=== PATIENT | female | born 1955 | race Caucasian/White ===

== ENCOUNTER 2016-07-28 10:52 | Outpatient (RCR) | payer MEDICARE, OTHER ==
[~2016-07-28] VITALS: Ht 172.7 cm; Wt 77.1 kg
[2016-07-28] VITALS (8 sets, daily range): BP systolic 144–157; BP diastolic 77–87
[~2016-07-28 10:52] MED LIST: ADAL10SY; ADAL40PE INJ; ALPR.25T PO; ALPR0.25 PO; ALPR0.254 PO; ARIP10TA10 PO; ARMO150T3 PO; ARMO250T3 PO; ARPZ10T PO; BUDE3CAP5 PO; CEPH500C PO; CNC1KV IJ; CNC1KV SC; COLE625T9 PO; CYCL10TA9 PO; DIPH1TAB25 PO; ESCI20TA2 PO; ESCI20TA45 PO; FLC100T1 PO; LACT1CAP45 PO; LIRA0.6P SQ; LISI20TA2 PO; LOPE2CAP PO; LOPE2TAB34 PO; LORA-404 PO; METF-380 PO; METR500T PO; MODA200T PO; MSL400TEC PO; MTF500T PO; NFNEB10T PO; OMEP20CA12 PO; OMEP20CA6 PO; ONDA8TAB13 PO; ONDA8TAB9 PO; PNT40TEC PO; PROM12.59 PO; RIFA550T PO; SCR1T PO; SENN-20 PO; SITA1TAB6 PO; SUCR1TAB36 PO; TRAM50TA2 PO; VITAMIN B12 LIQUID PO; ZLP10T PO; ZOLP10TA5 PO
--- OUTSIDE RECORDS SUMMARY | 2016-07-28 10:55 | XMS REPORT | Continuity of Care Document ---
Author Author [facility] Organization [facility] Address Unknown Phone Unavailable Care Team Providers Care Regional Clinical Director Name Role Phone Elham Thomas PCP [phone] Source Comments Some departments are not documenting in the electronic medical record. If you do not see the information that you expected, contact Release of Information in the Health Information Management department at [phone] for further assistance in locating additional records.[facility] Active Allergies and Adverse Reactions No Known Allergies Current Medications Prescription Sig. Disp. Refills Start End Date Status Date escitalopram oxalate Take 40 mg by mouth at Active (LEXAPRO) 20 mg tablet bedtime daily. LORazepam (ATIVAN) 0.5 mg Take 1 mg by mouth at Active tablet bedtime daily. INFLIXIMAB (REMICADE IV) Administer 100 mg through Active vein as directed. Every other monthShe has had 2 treatments traMADol (ULTRAM) 50 mg Take 50-100 mg by mouth Active tablet every 4-6 hours as needed for Pain. loperamide(+) (IMODIUM Take 1 Tab by mouth twice 90 Tab 1 02/03/20 Active A-D) 2 mg tab daily. 16 acetaminophen (TYLENOL) Take 650 mg by mouth Active 325 mg tablet every 4 hours as needed for Pain. omeprazole DR(+) Take 40 mg by mouth Active (PRILOSEC) 40 mg capsule daily. Active Problems Problem Noted Date Status post small bowel resection 02/02/2016 Overview: s/p ex lap, eLOA, pouchoscopy, enteroscopy, excision of J pouch, SBR, end ileostomy, omental pedicle creation on 01/22/16 Twitching 02/02/2016 Overview: Neurology consulted and EEG completed. No epileptiform or lateralizing signs seen Lactic acidosis 01/22/2016 Traumatic hematuria 01/22/2016 Hypotension 01/22/2016 Acute blood loss anemia 01/22/2016 Crohn's colitis (HCC) 01/21/2016 Crohn's disease of both small and large intestine with intestinal 11/14/2015 obstruction (HCC) Most Recent Encounters Date Type Specialty Providers Description 06/14/2016 Telephone Gastroenterology Lillian Adorno MD Results 06/14/2016 Orders Only Gastroenterology Lillian Adorno MD 06/10/2016 Telephone Gastroenterology Lillian Adorno MD Results Social History Tobacco Use Types Packs/Day Years Used Date Former Smoker Cigarettes Smokeless Tobacco: Never Used Alcohol Use Drinks/Week oz/Week Comments No 0 Standard 0.0 drinks or equivalent Last Filed Vital Signs Vital Sign Reading Time Taken Blood Pressure 134/65 03/10/2016 1:57 PM CDT Pulse 70 03/10/2016 1:57 PM CDT Temperature 36.9 C (98.4 F) 02/24/2016 11:03 AM CDT Respiratory Rate 15 02/24/2016 11:03 AM CDT Height 1.689 m (5' 6.5") 03/10/2016 1:57 PM CDT Weight 66.225 kg (146 lb) 03/10/2016 1:57 PM CDT Body Mass Index 23.21 03/10/2016 1:57 PM CDT Oxygen Saturation 98% 03/10/2016 1:57 PM CDT Plan of Care Health Maintenance Due Date Last Done Comments Hepatitis C Screening 1953 Physical (Comprehensive) 1960 Exam Pertussis Vaccine 1964 Tetanus Vaccine 1970 Cervical Cancer Screening 1974 Breast Cancer Screening 1993 Colorectal Cancer 2003 Screening Shingles Vaccine 2013 Influenza Vaccine 06/17/2016 Results from Last 3 Months COMPREHENSIVE METABOLIC PANEL (06/02/2016) Component Value Range Sodium 142 135-145 Potassium 3.9 3.6-5.0 Chloride 110 (A) 98-107 CO2 23 21-32 Blood Urea Nitrogen 13 7-18 Creatinine 0.84 0.60-1.30 Glucose 116 (A) 70-105 Calcium 9.3 8.5-10.1 Total Protein 7.6 6.4-8.2 Total Bilirubin 0.5 0.1-1.0 Albumin 3.9 3.2-4.5 Alk Phosphatase 97 40-136 AST (SGOT) 60 (A) 5-34 ALT (SGPT) 84 (A) 0-55 Anion Gap 9 5-14 Specimen Blood CBC AND DIFF (06/02/2016) Component Value Range White Blood Cells 4.6 4.3-11.0 RBC 4.97 4.35-5.85 Hemoglobin 13.1 11.5-16.0 Hematocrit 41 35-52 MCV 82 80-99 MCH 26 25-34 MCHC 32 32-36 Platelet Count 215 130-400 MPV 10.5 (A) 7.4-10.4 RDW 15.3 (A) 10.0-14.5 Neutrophils 55 42-75 Absolute Neutrophil Count 2.6 1.8-7.8 Lymphocytes 31 12-44 Absolute Lymph Count 1.4 1.0-4.0 Monocytes 10 0-12 Absolute Monocyte Count 0.5 0.0-1.0 Eosinophil 3 0-10 Absolute Eosinophil Count 0.2 0.0-0.3 Basophils 1 0-10 Absolute Basophil Count 0.0 0.0-0.1 Specimen Blood
[2016-07-28] MEDS ORDERED: NS IV SCH ×2 (11:15)
[2016-07-28] MEDS ORDERED: INFLIXIMAB IV SCH ×2 (11:15)
[2016-07-28] MEDS: ACETAMINOPHEN 500 MG TAB (TYLENOL) PO PRN (11:25)
[2016-07-28] MEDS: diphenhydrAMINE 50 MG/ML INJ (BENADRYL) IVP PRN (11:25)
[2016-07-28 11:35] LABS: MEAN PLATELET VOLUME 10.5 FL (7.4-10.4); RED BLOOD COUNT 4.66 10^6/uL (4.35-5.85); RED CELL DISTRIBUTION WIDTH 13.2 % (10.0-14.5)
[2016-07-28] MEDS ORDERED: methylPREDNISolone 40 MG/ML (Solu-MEDROL) VIAL IV SCH (11:45)
[2016-07-28 12:11] LABS: ALANINE AMINOTRANSFERASE 34 U/L (0-55); ALBUMIN 3.7 G/DL (3.2-4.5); ANION GAP 11 MMOL/L (5-14); ASPARTATE AMINO TRANSFERASE 31 U/L (5-34); BILIRUBIN,TOTAL 0.3 MG/DL (0.1-1.0); BLOOD UREA NITROGEN 17 MG/DL (7-18); BUN/CREATININE RATIO 18; CALCIUM 9.2 MG/DL (8.5-10.1); CARBON DIOXIDE 18 MMOL/L (21-32); CHLORIDE 107 MMOL/L (98-107); CREATININE SERUM 0.92 MG/DL (0.60-1.30); GFR ESTIMATED > 60; GLUCOSE 97 MG/DL (70-105); POTASSIUM 3.6 MMOL/L (3.6-5.0); SODIUM 136 MMOL/L (135-145)
[2016-11-17] MEDS ORDERED: CLON1PAT TD (11:40)
[2016-11-17] MEDS ORDERED: DILT300C49 PO (11:40)
[2016-11-17] MEDS ORDERED: HYDR-3923 PO (11:40)
== END 2016-10-26 | disposition home or self-care (01) ==
LOC: SDC 10:52
PROVIDERS: ATTEND Nurse Practitioner Family
DX: K50.118 Crohn's disease of large intestine with other complication (principal)
CPT/HCPCS: 36415; 80053; 85027; 96365; 96366; 96374; 96375

== ENCOUNTER 2017-01-12 09:06 | Outpatient (RCR) | payer MEDICARE, OTHER ==
[2016-11-17] VITALS (7 sets, daily range): BP systolic 141–151; BP diastolic 71–81
--- OUTSIDE RECORDS SUMMARY | 2016-11-17 10:38 | XMS REPORT | Continuity of Care Document ---
Author Author [facility] Organization [facility] Address Unknown Phone Unavailable Care Team Providers Care Desk Pens Assembler Name Role Phone Elham Thomas PCP [phone] Source Comments Some departments are not documenting in the electronic medical record. If you do not see the information that you expected, contact Release of Information in the Health Information Management department at [phone] for further assistance in locating additional records.[facility] Active Allergies and Adverse Reactions No Known [...] Recent Encounters Date Type Specialty Providers Description 09/23/2016 Telephone Gastroenterology Lillian Adorno MD Other Social History Tobacco Use Types Packs/Day Years [...] Vaccine 06/17/2016 Results from Last 3 Months Not on file
[2016-11-17 11:06] LABS: MEAN PLATELET VOLUME 9.9 FL (7.4-10.4); RED BLOOD COUNT 4.9 10^6/uL (4.35-5.85); RED CELL DISTRIBUTION WIDTH 13.4 % (10.0-14.5); WHITE BLOOD COUNT 7.3 10^3/uL (4.3-11.0)
[2016-11-17] MEDS: methylPREDNISolone 40 MG/ML (Solu-MEDROL) VIAL IV SCH (11:11)
[2016-11-17] MEDS: ACETAMINOPHEN 500 MG TAB (TYLENOL) PO PRN (11:11)
[2016-11-17] MEDS: diphenhydrAMINE 50 MG/ML INJ (BENADRYL) IVP PRN (11:11)
[2016-11-17 11:24] LABS: ALBUMIN 4.1 G/DL (3.2-4.5); BILIRUBIN,TOTAL 0.5 MG/DL (0.1-1.0); CALCIUM 9.5 MG/DL (8.5-10.1); CREATININE SERUM 1.04 MG/DL (0.60-1.30); TOTAL PROTEIN 7.5 G/DL (6.4-8.2)
[2016-11-17] MEDS: NS IV SCH ×2 (11:31)
[2016-11-17] MEDS: INFLIXIMAB IV SCH ×2 (11:31)
[~2017-01-12] VITALS: Ht 172.7 cm; Wt 87.5 kg
[~2017-01-12 09:06] MED LIST changes: +CLON1PAT TD; +DILT300C49 PO; +HYDR-3923 PO
[2017-01-12] MEDS ORDERED: NS IV 1000 ML 1,000 ML ONE (09:23)
[2017-01-12] MEDS ORDERED: BANANA IV ONE ×5 (09:30)
[2017-01-12 09:31] LABS: MEAN PLATELET VOLUME 10.3 FL (7.4-10.4); RED BLOOD COUNT 5.63 10^6/uL (4.35-5.85); RED CELL DISTRIBUTION WIDTH 14.2 % (10.0-14.5); WHITE BLOOD COUNT 7.6 10^3/uL (4.3-11.0)
[2017-01-12] MEDS ORDERED: NS IV 1000 ML 1,000 ML IV ONE (09:45)
[2017-01-12 09:54] LABS: ALBUMIN 4.4 G/DL (3.2-4.5); BILIRUBIN,TOTAL 0.4 MG/DL (0.1-1.0); CALCIUM 10.3 MG/DL (8.5-10.1); CREATININE SERUM 1.94 MG/DL (0.60-1.30); POTASSIUM 5.2 MMOL/L (3.6-5.0); TOTAL PROTEIN 8.5 G/DL (6.4-8.2)
[2017-01-12 11:30] VITALS: BP 115/77
[2017-01-12] MEDS: diphenhydrAMINE 50 MG/ML INJ (BENADRYL) IVP PRN (12:35)
[2017-01-12] MEDS: NS IV SCH ×2 (12:35)
[2017-01-12] MEDS: INFLIXIMAB IV SCH ×2 (12:35)
[2017-01-12] MEDS: methylPREDNISolone 40 MG/ML (Solu-MEDROL) VIAL IV SCH (12:36)
[2017-01-12] MEDS: ACETAMINOPHEN 500 MG TAB (TYLENOL) PO PRN (12:36)
[2017-01-12 13:00] VITALS: BP 120/62
[2017-01-12 13:30] VITALS: BP 122/67
[2017-01-12 14:00] VITALS: BP 126/64
[2017-01-12 14:30] VITALS: BP 124/68
[2017-01-12 15:09] VITALS: BP 120/62
== END 2017-02-15 | disposition home or self-care (01) ==
LOC: SDC 09:06
PROVIDERS: ATTEND Nurse Practitioner Family
DX: K50.118 Crohn's disease of large intestine with other complication (principal)
CPT/HCPCS: 36415; 80053; 85027; 94664; 96365; 96366; 96374; 96375

== ENCOUNTER 2017-03-09 08:50 | Outpatient (RCR) | payer MEDICARE, OTHER ==
[~2017-03-09] VITALS: Ht 172.7 cm; Wt 83.9 kg
[2017-03-09] MEDS ORDERED: ACETAMINOPHEN 500 MG TAB (TYLENOL) PO SCH (09:15)
[2017-03-09] MEDS ORDERED: diphenhydrAMINE 50 MG/ML INJ (BENADRYL) IV SCH (09:15)
[2017-03-09] MEDS ORDERED: methylPREDNISolone 40 MG/ML (Solu-MEDROL) VIAL IV SCH (09:15)
[2017-03-09 09:25] VITALS: BP_SYST 131; BP_SYST 132; BP_DIAS 85; BP_DIAS 94
[2017-03-09 09:25] LABS: RED BLOOD COUNT 4.69 10^6/uL (4.35-5.85); RED CELL DISTRIBUTION WIDTH 13.9 % (10.0-14.5); WHITE BLOOD COUNT 6.2 10^3/uL (4.3-11.0)
[2017-03-09] MEDS ORDERED: NS IV SCH ×2 (09:30)
[2017-03-09] MEDS ORDERED: BANANA BAG IV ONE ×5 (09:30)
[2017-03-09] MEDS ORDERED: INFLIXIMAB IV SCH ×2 (09:30)
[2017-03-09 09:51] LABS: BILIRUBIN,TOTAL 0.4 MG/DL (0.1-1.0); CALCIUM 9.8 MG/DL (8.5-10.1); CREATININE SERUM 1.14 MG/DL (0.60-1.30); POTASSIUM 3.8 MMOL/L (3.6-5.0); TOTAL PROTEIN 7.3 G/DL (6.4-8.2)
== END 2017-03-25 13:00 | disposition home or self-care (01) ==
LOC: SDC 08:50
PROVIDERS: ATTEND Nurse Practitioner Family
DX: K50.118 Crohn's disease of large intestine with other complication (principal); E86.0 Dehydration
CPT/HCPCS: 36415; 80053; 85027; 96365; 96366; 96367; 99211

== ENCOUNTER 2017-05-04 10:08 | Outpatient (RCR) | payer MEDICARE, OTHER ==
[~2017-05-04] VITALS: Ht 172.7 cm; Wt 86.6 kg
[2017-05-04] MEDS ORDERED: INFLIXIMAB IV SCH ×2 (10:27)
[2017-05-04] MEDS ORDERED: NS IV SCH ×2 (10:27)
[2017-05-04] MEDS ORDERED: ACETAMINOPHEN 500 MG TAB (TYLENOL) PO PRN (10:30)
[2017-05-04] MEDS ORDERED: diphenhydrAMINE 50 MG/ML INJ (BENADRYL) IV PRN (10:45)
[2017-05-04] MEDS ORDERED: EPINEPHrine INJECTION 1 MG/ML AMP SC PRN (10:45)
[2017-05-04] MEDS ORDERED: methylPREDNISolone 40 MG/ML (Solu-MEDROL) VIAL IV PRN (10:45)
[2017-05-04] MEDS: CATHETER FLUSH 10 ML SYR IV PRN ×3 (10:45→15:30)
[2017-05-04 11:20] LABS: MEAN PLATELET VOLUME 10.5 FL (7.4-10.4); RED BLOOD COUNT 4.69 10^6/uL (4.35-5.85); RED CELL DISTRIBUTION WIDTH 13.5 % (10.0-14.5); WHITE BLOOD COUNT 6.4 10^3/uL (4.3-11.0)
[2017-05-04 12:07] LABS: ALBUMIN 3.9 GM/DL (3.2-4.5); BILIRUBIN,TOTAL 0.5 MG/DL (0.1-1.0); CALCIUM 9.5 MG/DL (8.5-10.1); CREATININE SERUM 2.43 MG/DL (0.60-1.30); POTASSIUM 5.3 MMOL/L (3.6-5.0); TOTAL PROTEIN 7.7 GM/DL (6.4-8.2)
[2017-05-04 15:30] VITALS: BP 119/70
[2017-05-11] MEDS ORDERED: LORA0.5T PO (11:29)
[2017-05-11] MEDS ORDERED: ARIP5TAB20 PO (11:29)
[2017-05-11] MEDS ORDERED: DILT30TA PO (11:29)
[2017-05-11] MEDS ORDERED: HYDR-3924 PO (11:29)
[2017-05-12] MEDS ORDERED: HYDR-3816 PO (13:24)
== END 2017-06-30 09:06 | disposition home or self-care (01) ==
LOC: SDC 10:08
PROVIDERS: ATTEND Nurse Practitioner Family
DX: K50.90 Crohn's disease, unspecified, without complications (principal)
CPT/HCPCS: 36415; 80053; 85027; 96365; 96366; 96374; 96375

== ENCOUNTER 2017-05-04 10:18 | Outpatient (RCR) | payer MEDICARE, OTHER ==
[2017-03-28 12:20] VITALS: BP 134/74
[2017-03-28 12:54] LABS: ALBUMIN 4.4 G/DL (3.2-4.5); BILIRUBIN,TOTAL 0.5 MG/DL (0.1-1.0); CALCIUM 10.3 MG/DL (8.5-10.1); CREATININE SERUM 1.48 MG/DL (0.60-1.30); MAGNESIUM 2.4 MG/DL (1.8-2.4); TOTAL PROTEIN 8.5 G/DL (6.4-8.2)
[2017-03-28 12:55] LABS: POTASSIUM 5.4 MMOL/L (3.6-5.0)
[2017-03-28 14:35] VITALS: BP 134/74
[2017-04-11 11:22] VITALS: BP 107/68
[2017-04-11 12:36] LABS: ALBUMIN 4.2 GM/DL (3.2-4.5); BILIRUBIN,TOTAL 0.5 MG/DL (0.1-1.0); CALCIUM 9.3 MG/DL (8.5-10.1); CREATININE SERUM 2.45 MG/DL (0.60-1.30); ICTERUS 0.4 (-100-1.9); MAGNESIUM 1.9 MG/DL (1.8-2.4); POTASSIUM 4.4 MMOL/L (3.6-5.0)
[2017-04-11] MEDS: NS IV 1000 ML 1,000 ML IV PRN ×2 (15:35→15:37)
[2017-04-20 11:28] LABS: ALBUMIN 4.1 GM/DL (3.2-4.5); BILIRUBIN,TOTAL 0.4 MG/DL (0.1-1.0); CREATININE SERUM 1.75 MG/DL (0.60-1.30); MAGNESIUM 2.1 MG/DL (1.8-2.4); POTASSIUM 5.1 MMOL/L (3.6-5.0); TOTAL PROTEIN 7.8 GM/DL (6.4-8.2)
[2017-04-20 11:41] VITALS: BP 131/71
[2017-04-20] MEDS: NS IV 1000 ML 1,000 ML IV PRN (11:42)
[2017-04-20] MEDS: THIAMINE INJECTION 100 MG, FOLIC ACID INJECTION 1 MG, VITAMIN MULTI INJECTION 10 ML, MA... IV PRN ×5 (13:13)
[2017-04-20 14:21] VITALS: BP 131/71
[~2017-05-04] VITALS: Ht 172.7 cm; Wt 86.6 kg
[2017-05-04 10:15] VITALS: BP 119/70
[~2017-05-04 10:18] MED LIST changes: +NS IV 1000 ML 1,000 ML IV SCH; +NS IV 1000 ML 1,000 ML ONE; +THIAMINE INJECTION 100 MG, FOLIC ACID INJECTION 1 MG, VITAMIN MULTI INJECTION 10 ML, MA... IV NR; +THIAMINE INJECTION 100 MG, FOLIC ACID INJECTION 1 MG, VITAMIN MULTI INJECTION 10 ML, MA... IV PRN
[2017-05-04] MEDS: NS IV 1000 ML 1,000 ML IV PRN (11:24)
[2017-05-04] MEDS: THIAMINE INJECTION 100 MG, FOLIC ACID INJECTION 1 MG, VITAMIN MULTI INJECTION 10 ML, MA... IV PRN ×5 (11:26)
[2017-05-11] MEDS ORDERED: HYDR-3924 PO (11:29)
[2017-05-11] MEDS ORDERED: DILT30TA PO (11:29)
[2017-05-11] MEDS ORDERED: LORA0.5T PO (11:29)
[2017-05-11] MEDS ORDERED: ARIP5TAB20 PO (11:29)
[2017-05-12] MEDS ORDERED: HYDR-3816 PO (13:24)
== END 2017-06-26 | disposition home or self-care (01) ==
LOC: SDC 10:18
PROVIDERS: ATTEND Nurse Practitioner Family
DX: E86.0 Dehydration (principal)
CPT/HCPCS: 36415; 80053; 83735; 96360; 96361; 96365; 96366; 96367

== ENCOUNTER 2017-05-09 11:12 | Outpatient (CLI) | payer MEDICARE, OTHER ==
[~2017-05-09] VITALS: Ht 172.7 cm; Wt 86.6 kg
[~2017-05-09 11:12] MED LIST changes: -NS IV 1000 ML 1,000 ML IV SCH; -NS IV 1000 ML 1,000 ML ONE; -THIAMINE INJECTION 100 MG, FOLIC ACID INJECTION 1 MG, VITAMIN MULTI INJECTION 10 ML, MA... IV NR; -THIAMINE INJECTION 100 MG, FOLIC ACID INJECTION 1 MG, VITAMIN MULTI INJECTION 10 ML, MA... IV PRN
[2017-05-09] MEDS: NS IV 1000 ML 1,000 ML IV SCH ×2 (11:42→12:35)
[2017-05-09 12:35] VITALS: BP 113/63
[2017-05-11] MEDS ORDERED: ARIP5TAB20 PO ×2 (11:29)
[2017-05-11] MEDS ORDERED: HYDR-3924 PO ×2 (11:29)
[2017-05-11] MEDS ORDERED: LORA0.5T PO ×2 (11:29)
[2017-05-11] MEDS ORDERED: DILT30TA PO ×2 (11:29)
[2017-05-12] MEDS ORDERED: HYDR-3816 PO ×2 (13:24)
== END 2017-05-09 13:45 | disposition home or self-care (01) ==
LOC: SDC 11:12
PROVIDERS: ATTEND Family Medicine
DX: E86.0 Dehydration (principal); E87.1 Hypo-osmolality and hyponatremia; E87.5 Hyperkalemia
CPT/HCPCS: 96360; 96361

== ENCOUNTER 2017-05-11 05:41 | Outpatient (CLI) | payer MEDICARE, OTHER ==
[~2017-05-11] VITALS: Ht 172.7 cm; Wt 87.1 kg
[2017-05-11] MEDS ORDERED: LORA0.5T PO (11:29)
[2017-05-11] MEDS ORDERED: ARIP5TAB20 PO (11:29)
[2017-05-11] MEDS ORDERED: DILT30TA PO (11:29)
[2017-05-11] MEDS ORDERED: HYDR-3924 PO (11:29)
[2017-05-12] MEDS ORDERED: HYDR-3816 PO (13:24)
== END 2017-05-11 11:33 ==
LOC: PREOP 05:41
PROVIDERS: ATTEND Surgery
DX: Z01.818 Encounter for other preprocedural examination (principal); K50.90 Crohn's disease, unspecified, without complications

== ENCOUNTER 2017-05-12 09:58 | Day surgery (SDC) | payer MEDICARE, OTHER ==
[~2017-05-12] VITALS: Ht 172.7 cm; Wt 87.1 kg
[~2017-05-12 09:58] MED LIST changes: +ARIP5TAB20 PO; +DILT30TA PO; +HYDR-3924 PO; +LORA0.5T PO
[2017-05-12] MEDS ORDERED: NS (IVPB) 50 ML ONE (10:01)
[2017-05-12] MEDS ORDERED: ceFAZolin 1,000 MG (ANCEF) VIAL ONE (10:01)
[2017-05-12] MEDS ORDERED: ceFAZolin 1 GM/NS 50 ML IVPB IV ONE ×2 (10:15)
[2017-05-12] MEDS ORDERED: HEParin (CENTRAL IV FLUSH) 500 UNIT/5 ML SYR ONE (10:35)
[2017-05-12] MEDS ORDERED: LIDOCAINE/EPI 1%-1:200,000 (XYLOCAINE) 30 ML VIAL ONE (10:43)
[2017-05-12] MEDS: LACTATED RINGERS 1,000 ML IV PRN ×2 (11:00→13:21)
[2017-05-12] MEDS ORDERED: MIDAZOLAM 2 MG/2 ML (VERSED) VIAL ONE (11:28)
[2017-05-12] MEDS ORDERED: PROPOFOL INJECTION 50 ML IV ONE (11:30)
--- NOTE | 2017-05-12 11:47 | Progress Note-Pre Operative ---
Pre-Operative Progress Note H&P Reviewed The H&P was reviewed, patient examined and no changes noted. Date Seen by Provider: May 12, 2017 Time Seen by Provider: 11:45 Date H&P Reviewed: May 12, 2017 Time H&P Reviewed: 11:45 Pre-Operative Diagnosis: severe crohn's disease SUNNY STACY MD May 12, 2017 11:47 am
[2017-05-12] MEDS ORDERED: morphine INJ 10 MG/ML 1ML (SYR OR VIAL) IVP PRN ×2 (12:00→13:30)
[2017-05-12] MEDS ORDERED: ONDANSETRON 4 MG/2 ML (SDV) Z0FRAN IVP PRN (12:00)
[2017-05-12] MEDS ORDERED: HYDROcodone/APAP 5 MG/325 MG (LORTAB) TAB PO ONE (12:00)
[2017-05-12] MEDS ORDERED: ACETAMINOPHEN 325 MG TABLET/CAPLET (TYLENOL) PO PRN (12:00)
[2017-05-12 12:21] VITALS: BP 125/77
[2017-05-12] MEDS ORDERED: LACTATED RINGERS 1,000 ML IV ONE ×2 (12:54→13:07)
--- NOTE | 2017-05-12 13:22 | Progress Note-Post Operative ---
Post-Operative Progess Note Surgeon (s)/Deliverer Outside (s) Surgeon SUNNY STACY MD Deliverer Outside: johan jason CASING RUNNING MACHINE TENDER Pre-Operative Diagnosis severe crohn's disease Post-Operative Diagnosis same Procedure & Operative Findings Date of Procedure 05/12/17 Procedure Performed/Findings left subclavian groshong implantable catheter placement under fluoroscopy. Anesthesia Type MAC with local Estimated Blood Loss Estimated blood loss (mL): minimal Specimens/Packing Specimens Removed none SUNNY STACY MD May 12, 2017 1:22 pm
[2017-05-12] MEDS ORDERED: HYDR-3816 PO (13:24)
--- NOTE | 2017-05-12 13:25 | Discharge Inst-Surgical ---
D/C Lap Instructions-TAWANNA New, Converted, or Re-Newed RX: RX on Chart Follow Up PRN Activity as tolerated Regular Diet Symptoms to Report: Fever over 101 degree F, Nausea/Vomiting Infection Signs and Symptoms to report: Increased redness, Foul odor of wound, Increased drainage Bathing instructions: May shower Operative Area Clean/Dry; Keep incision clean/dry If any problems/questions: Contact your physician or go to Emergency Room SUNNY STACY MD May 12, 2017 1:25 pm
[2017-05-12 13:45] VITALS: BP 117/71
--- NOTE | 2017-05-12 13:49 | Diagnostic Imaging Report ---
Portable upright radiograph of the chest. INDICATION: Port placement. FINDINGS: There is a left subclavian port inserted with the tip at the SVC level. The lungs are clear. The heart size is normal. No effusion or pneumothorax Mediastinum and brandan appear unremarkable. IMPRESSION: Unremarkable exam. Dictated by: Dictated on workstation # [id number]
[2017-05-12 14:15] VITALS: BP 121/73
[2017-05-12 14:30] VITALS: BP 121/73
--- NOTE | 2017-05-12 15:41 | Diagnostic Imaging Report ---
EXAMINATION: Intraoperative view of the chest. INDICATION: Port placement by Dr. Spicer. FLUOROSCOPY TIME: Fluoro time provided to the OR was 20 seconds. IMPRESSION: Provided image demonstrates port catheter tip at the SVC level. Dictated by: Dictated on workstation # [id number]
--- NOTE | 2017-05-13 10:36 | OPERATIVE REPORT ---
PROCEDURE PHYSICIAN: SUNNY SPICER DATE OF PROCEDURE: 05/12/2017 ATTENDING PRIMARY CARE PHYSICIAN: Dr. Leesa Thomas. PREOPERATIVE DIAGNOSES: 1. Severe Crohn's disease. 2. Dehydration. POSTOPERATIVE DIAGNOSES: 1. Severe Crohn's disease. 2. Dehydration. PROCEDURE: Placement of left subclavian Groshong implantable catheter under fluoroscopy. SURGEON: Dr. Spicer. STEWARD/STEWARDESS [employer]ILRO[employer] DINING CAR: Nicolas Myrick APRN. ANESTHESIA: Monitored anesthesia care with local. ESTIMATED BLOOD LOSS: Minimal. FINDINGS: Catheter tip at the superior vena cava - right atrial junction. DISPOSITION: The patient tolerated procedure well. Ms. Suni Hernandez is a 62-year-old female in need of a Groshong implantable catheter. Approximately 5 years ago she had issues with gastrointestinal inflammation as well as dehydration. 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 Since the ileostomy, she has had issues with dehydration requiring IV fluids on an intermittent basis. She also requires Remicade infusions about every 2 months. She has had several PICC lines before in the past; however, would become nonfunctional. PROCEDURE: The patient was brought to the operating room, laid supine on the table. After adequate IV pain and sedative medications and monitored anesthesia care, the chest and neck were prepped and draped in standard surgical fashion. 0.5% Marcaine with epinephrine was then used to anesthetize the overlying skin in the left subclavian region. The left subclavian vein was then cannulated withdrawing of venous blood. A guidewire was then inserted using fluoroscopy. Cannulating needle removed and a skin incision made using a 15 blade. The dilator and sheath were then introduced over the guidewire and the dilator and wire were then removed and catheter placed until the tip was at the superior vena caval - right atrial junction under fluoroscopy. The sheath was then removed. The inner wire within the catheter was then removed. The catheter cut down to size and the port placed onto the catheter. We then proceeded with creation of the subcutaneous chest reservoir. The skin incision was extended laterally using a 15 blade. The subcutaneous tissue was then opened until the anterior pectoral fascia was identified and a plane between the fat and the fascia were then created using electrocautery as well as blunt dissection. The port was then placed in reservoir and sutured to the anterior fascia using interrupted 3-0 Vicryl sutures. The port was accessed withdrawing of venous blood and heparinized saline pushed in without any resistance. The subcutaneous tissue was then reapproximated using 3-0 Vicryl interrupted sutures. Skin was closed using 4-0 Monocryl running subcuticular suture. The wound was then cleaned and covered with Dermabond. The patient tolerated the procedure well. We will start IV and oral pain medication as well as a clear liquid diet. Once she is tolerating clears, has good pain control with oral pain medications and ambulating well, we will discharge her home. We will also get confirmation of placement of the catheter with an x-ray. Job ID: [id number] Dictated Date: 05/12/2017 13:20:58 Global Account Director Date: 05/13/2017 10:27:46 / dexter
== END 2017-05-12 14:30 | disposition home or self-care (01) ==
LOC: SDC 09:58
PROVIDERS: ATTEND Surgery
DX: K50.90 Crohn's disease, unspecified, without complications (principal); E86.0 Dehydration; I10 Essential (primary) hypertension; K21.9 Gastro-esophageal reflux disease without esophagitis; F41.9 Anxiety disorder, unspecified; F31.9 Bipolar disorder, unspecified; M79.7 Fibromyalgia; Z79.899 Other long term (current) drug therapy; Z93.2 Ileostomy status
CPT/HCPCS: 71010; 87081

== ENCOUNTER 2017-05-17 12:30 | Outpatient (CLI) | payer MEDICARE, OTHER ==
[~2017-05-17] VITALS: Ht 172.7 cm; Wt 87.1 kg
[~2017-05-17 12:30] MED LIST changes: +HYDR-3816 PO
[2017-05-17] MEDS ORDERED: NS IV 1000 ML 2,000 ML ONE (13:00)
[2017-05-17] MEDS ORDERED: NS IV 1000 ML 2,000 ML IV ONE (13:15)
[2017-05-17 14:49] LABS: ALBUMIN 3.7 GM/DL (3.2-4.5); BILIRUBIN,TOTAL 0.3 MG/DL (0.1-1.0); CALCIUM 9.5 MG/DL (8.5-10.1); CREATININE SERUM 1.67 MG/DL (0.60-1.30); MAGNESIUM 1.5 MG/DL (1.8-2.4); POTASSIUM 4.2 MMOL/L (3.6-5.0); TOTAL PROTEIN 6.8 GM/DL (6.4-8.2)
[2017-05-17 16:29] VITALS: BP 110/57
== END 2017-06-30 09:05 | disposition home or self-care (01) ==
LOC: SDC 12:30 → EDSTATUS 12:34 → SDC 06-30 09:05
PROVIDERS: ATTEND Family Medicine
DX: E86.0 Dehydration (principal)
CPT/HCPCS: 36415; 80053; 83735; 96360; 96361

== ENCOUNTER → 2017-05-25 | Outpatient (CLI) | payer MEDICARE, OTHER ==
[~2017-05-25] VITALS: Ht 172.7 cm; Wt 87.1 kg
[~2017-05-25] MED LIST changes: +MAGNESIUM 1 GM/100 ML IVPB 200 ML IV ONE; +NS IV 1000 ML 1,000 ML IV SCH; +NS IV 1000 ML 1,000 ML ONE
[2017-05-25 13:00] VITALS: BP 115/66
[2017-05-25] MEDS: MAGNESIUM 1 GM/D5W 100 ML IVPB IV SCH ×2 (13:00→13:50)
== END ==
LOC: SDC 12:39
PROVIDERS: ATTEND Family Medicine
DX: E86.0 Dehydration (principal); E83.42 Hypomagnesemia
CPT/HCPCS: 96361; 96365

== ENCOUNTER 2017-06-29 10:15 | Outpatient (RCR) | payer MEDICARE, OTHER ==
[2017-06-15 11:15] VITALS: BP 137/69
[2017-06-15 11:33] LABS: BILIRUBIN,URINE NEGATIVE (NEGATIVE); KETONES,URINE NEGATIVE (NEGATIVE); LEUKOCYTE ESTERASE ,URINE 1+ (NEGATIVE); NITRITE,URINE NEGATIVE (NEGATIVE); PH,URINE 6 (5-9); PROTEIN,URINE 1+ (NEGATIVE); UROBILINOGEN,URINE NORMAL (NORMAL)
[2017-06-15 11:47] LABS: BASOPHILS # (AUTO) 0.1 10^3/uL (0.0-0.1); BASOPHILS % (AUTO) 1 % (0-10); EOSINOPHILS # (AUTO) 0.2 10^3/uL (0.0-0.3); EOSINOPHILS % (AUTO) 3 % (0-10); LYMPHOCYTES # (AUTO) 1.4 X 10^3 (1.0-4.0); LYMPHOCYTES % (AUTO) 20 % (12-44); MEAN CORPUSCULAR HEMOGLOBIN 29 PG (25-34); MEAN CORPUSCULAR HGB CONC 32 G/DL (32-36); MEAN CORPUSCULAR VOLUME 89 FL (80-99); MEAN PLATELET VOLUME 10.2 FL (7.4-10.4); MONOCYTES # (AUTO) 0.6 X 10^3 (0.0-1.0); MONOCYTES % (AUTO) 9 % (0-12); NEUTROPHILS # (AUTO) 4.9 X 10^3 (1.8-7.8); NEUTROPHILS % (AUTO) 68 % (42-75); PLATELET COUNT 255 10^3/uL (130-400); RED BLOOD COUNT 4.17 10^6/uL (4.35-5.85); RED CELL DISTRIBUTION WIDTH 14.1 % (10.0-14.5); WHITE BLOOD COUNT 7.2 10^3/uL (4.3-11.0)
[2017-06-15 11:49] LABS: SQUAMOUS EPITHELIAL CELL,UR RARE /HPF
[2017-06-15 12:13] LABS: CALCIUM 9.8 MG/DL (8.5-10.1); CREATININE SERUM 1.22 MG/DL (0.60-1.30); PHOSPHORUS 3.8 MG/DL (2.3-4.7); POTASSIUM 4.2 MMOL/L (3.6-5.0); TOTAL PROTEIN 7.3 GM/DL (6.4-8.2)
[~2017-06-29] VITALS: Ht 172.7 cm; Wt 87.1 kg
[~2017-06-29 10:15] MED LIST changes: -NS IV 1000 ML 1,000 ML IV PRN
[2017-06-29] MEDS ORDERED: diphenhydrAMINE 50 MG/ML INJ (BENADRYL) IV PRN (10:32)
[2017-06-29] MEDS ORDERED: methylPREDNISolone 40 MG/ML (Solu-MEDROL) VIAL IV PRN (10:32)
[2017-06-29] MEDS ORDERED: CATHETER FLUSH 10 ML SYR IV PRN (10:32)
[2017-06-29] MEDS ORDERED: EPINEPHrine INJECTION 1 MG/ML AMP SC PRN (10:32)
[2017-06-29] MEDS ORDERED: INFLIXIMAB IV SCH ×2 (10:32)
[2017-06-29] MEDS ORDERED: ACETAMINOPHEN 500 MG TAB (TYLENOL) PO PRN (10:32)
[2017-06-29] MEDS ORDERED: NS IV SCH ×2 (10:32)
[2017-06-29] MEDS ORDERED: NS IV 1000 ML 1,000 ML IV PRN (10:45)
[2017-06-29 12:21] VITALS: BP 112/78
== END 2017-06-30 09:07 | disposition home or self-care (01) ==
LOC: SDC 10:15
PROVIDERS: ATTEND Family Medicine
DX: E86.0 Dehydration (principal); K91.1 Postgastric surgery syndromes
CPT/HCPCS: 36415; 36591; 80069; 81000; 84155; 85025; 87088; 96360; 96361

== ENCOUNTER → 2017-06-29 | Outpatient (CLI) | payer MEDICARE, OTHER ==
[~2017-06-29] MED LIST changes: -MAGNESIUM 1 GM/100 ML IVPB 200 ML IV ONE; +NS IV 1000 ML 1,000 ML IV PRN; -NS IV 1000 ML 1,000 ML IV SCH; -NS IV 1000 ML 1,000 ML ONE; +NS IV 1000 ML 2,000 ML ONE
[2017-06-29 10:38] LABS: MEAN PLATELET VOLUME 10.2 FL (7.4-10.4); RED BLOOD COUNT 4.27 10^6/uL (4.35-5.85); RED CELL DISTRIBUTION WIDTH 13.9 % (10.0-14.5); WHITE BLOOD COUNT 5.6 10^3/uL (4.3-11.0)
[2017-06-29 10:56] LABS: ALBUMIN 3.9 GM/DL (3.2-4.5); BILIRUBIN,TOTAL 0.7 MG/DL (0.1-1.0); CALCIUM 9.5 MG/DL (8.5-10.1); CREATININE SERUM 1.18 MG/DL (0.60-1.30); POTASSIUM 3.9 MMOL/L (3.6-5.0); TOTAL PROTEIN 7.5 GM/DL (6.4-8.2)
[2017-06-29 12:21] VITALS: BP 112/78
[2017-06-29 12:23] VITALS: BP 112/78
== END ==
LOC: SDC 10:07
PROVIDERS: ATTEND Nurse Practitioner Family
DX: K50.118 Crohn's disease of large intestine with other complication (principal)
CPT/HCPCS: 36415; 36591; 80053; 85027; 96365; 96366; 96375

== ENCOUNTER → 2017-07-06 | Outpatient (CLI) | payer MEDICARE, OTHER ==
[~2017-07-06] VITALS: Ht 172.7 cm; Wt 87.1 kg
[~2017-07-06] MED LIST changes: +MAGNESIUM 1 GM/100 ML IVPB 200 ML IV ONE; +MAGNESIUM 1 GM/D5W 100 ML IVPB IV SCH; +NS IV 1000 ML 1,000 ML IV ONE; +NS IV 1000 ML 1,000 ML ONE; -NS IV 1000 ML 2,000 ML ONE
[2017-07-06 11:50] VITALS: BP 121/72
[2017-07-06 14:07] VITALS: BP 121/72
== END ==
LOC: SDC 11:35
PROVIDERS: ATTEND Family Medicine
DX: E83.42 Hypomagnesemia (principal); E86.0 Dehydration; K91.2 Postsurgical malabsorption, not elsewhere classified
CPT/HCPCS: 96365; 96368

== ENCOUNTER → 2017-07-06 | Outpatient (CLI) | payer MEDICARE, OTHER ==
[~2017-07-06] MED LIST changes: -MAGNESIUM 1 GM/100 ML IVPB 200 ML IV ONE; -MAGNESIUM 1 GM/D5W 100 ML IVPB IV SCH; -NS IV 1000 ML 1,000 ML IV ONE; -NS IV 1000 ML 1,000 ML ONE
--- NOTE | 2017-07-06 14:27 | Diagnostic Imaging Report ---
Renal ultrasound. INDICATION: Chronic renal disease. FINDINGS: The right kidney is 8.9 cm and the left kidney is 9.9 cm in length. There is cortical atrophy. No hydronephrosis. There is a 2 cm cyst with simple appearance in the superior aspect of the left kidney. The bladder is nearly empty with no definite abnormality. IMPRESSION: Renal parenchymal atrophy. No hydronephrosis. Dictated by: Dictated on workstation # [id number]
== END ==
LOC: RAD 10:50
PROVIDERS: ATTEND Internal Medicine Nephrology
DX: N18.3 Chronic kidney disease, stage 3 (moderate) (principal)
CPT/HCPCS: 76770

== ENCOUNTER → 2017-08-31 | Outpatient (CLI) | payer MEDICARE, OTHER ==
[~2017-08-31] MED LIST changes: +ACETAMINOPHEN 500 MG TAB (TYLENOL) PO SCH; +INFLIXIMAB DYYB IV SCH; +NORMAL SALINE IV SCH; +diphenhydrAMINE 50 MG/ML INJ (BENADRYL) IV SCH; +methylPREDNISolone 40 MG/ML (Solu-MEDROL) VIAL IV SCH
== END ==
LOC: SDC 11:02
PROVIDERS: ATTEND Family Medicine
DX: K50.118 Crohn's disease of large intestine with other complication (principal)

== ENCOUNTER → 2017-09-01 | Outpatient (CLI) | payer MEDICARE, OTHER ==
[~2017-09-01] VITALS: Ht 172.7 cm; Wt 89.8 kg
[~2017-09-01] MED LIST changes: -ACETAMINOPHEN 500 MG TAB (TYLENOL) PO SCH; -INFLIXIMAB DYYB IV SCH; -NORMAL SALINE IV SCH; -diphenhydrAMINE 50 MG/ML INJ (BENADRYL) IV SCH; -methylPREDNISolone 40 MG/ML (Solu-MEDROL) VIAL IV SCH
[2017-09-01 13:39] VITALS: BP 146/79
[2017-09-01 14:40] LABS: ALBUMIN 3.7 GM/DL (3.2-4.5); BILIRUBIN,TOTAL 0.4 MG/DL (0.1-1.0); CREATININE SERUM 1.21 MG/DL (0.60-1.30); POTASSIUM 3.6 MMOL/L (3.6-5.0); TOTAL PROTEIN 6.8 GM/DL (6.4-8.2)
[2017-09-01 17:02] LABS: MEAN PLATELET VOLUME 10.3 FL (7.4-10.4); RED BLOOD COUNT 4.24 10^6/uL (4.35-5.85); RED CELL DISTRIBUTION WIDTH 12.2 % (10.0-14.5); WHITE BLOOD COUNT 4.8 10^3/uL (4.3-11.0)
[2017-09-01 17:22] LABS: ALBUMIN 3.7 GM/DL (3.2-4.5); BILIRUBIN,TOTAL 0.5 MG/DL (0.1-1.0); CREATININE SERUM 1.48 MG/DL (0.60-1.30); POTASSIUM 4.2 MMOL/L (3.6-5.0)
== END ==
LOC: SDC 14:02
PROVIDERS: ATTEND Family Medicine
DX: K50.118 Crohn's disease of large intestine with other complication (principal)
CPT/HCPCS: 36415; 80053; 85027

== ENCOUNTER → 2017-09-26 | Outpatient (CLI) | payer MEDICARE, OTHER ==
[~2017-09-26] VITALS: Ht 172.7 cm; Wt 89.8 kg
[2017-09-26 14:08] LABS: BILIRUBIN,URINE NEGATIVE (NEGATIVE); KETONES,URINE NEGATIVE (NEGATIVE); LEUKOCYTE ESTERASE ,URINE 1+ (NEGATIVE); NITRITE,URINE NEGATIVE (NEGATIVE); PH,URINE 5 (5-9); PROTEIN,URINE 2+ (NEGATIVE); UROBILINOGEN,URINE NORMAL (NORMAL)
[2017-09-26 14:18] LABS: SQUAMOUS EPITHELIAL CELL,UR RARE /HPF; WBC,URINE RARE /HPF
[2017-09-26 14:29] LABS: PROTEIN/CREATININE RATIO 0.09
[2017-09-26 14:41] VITALS: BP 135/88
[2017-09-26 14:44] LABS: BASOPHILS % (AUTO) 0 % (0-10); EOSINOPHILS # (AUTO) 0.2 10^3/uL (0.0-0.3); EOSINOPHILS % (AUTO) 3 % (0-10); LYMPHOCYTES # (AUTO) 1.1 X 10^3 (1.0-4.0); LYMPHOCYTES % (AUTO) 22 % (12-44); MEAN CORPUSCULAR HEMOGLOBIN 28 PG (25-34); MEAN CORPUSCULAR HGB CONC 32 G/DL (32-36); MEAN CORPUSCULAR VOLUME 88 FL (80-99); MEAN PLATELET VOLUME 10.5 FL (7.4-10.4); MONOCYTES # (AUTO) 0.4 X 10^3 (0.0-1.0); MONOCYTES % (AUTO) 7 % (0-12); NEUTROPHILS # (AUTO) 3.4 X 10^3 (1.8-7.8); NEUTROPHILS % (AUTO) 67 % (42-75); PLATELET COUNT 253 10^3/uL (130-400); RED BLOOD COUNT 4.53 10^6/uL (4.35-5.85); RED CELL DISTRIBUTION WIDTH 12.9 % (10.0-14.5)
[2017-09-26 15:05] LABS: CALCIUM 9.6 MG/DL (8.5-10.1); CREATININE SERUM 1.07 MG/DL (0.60-1.30); MAGNESIUM 1.6 MG/DL (1.8-2.4); PHOSPHORUS 2.7 MG/DL (2.3-4.7); POTASSIUM 4.2 MMOL/L (3.6-5.0); URIC ACID 8.4 MG/DL (2.6-7.2)
[2017-09-26 15:10] LABS: BASOPHILS % (MANUAL) 3 %; EOSINOPHILS % (MANUAL) 6 %; LYMPHOCYTES % (MANUAL) 14 %; NEUTROPHILS % (MANUAL) 65 %
[2017-09-27 09:35] LABS: CALCIUM PARA THYROID HORMONE 9.8 mg/dL (8.5-10.5)
== END ==
LOC: SDC 13:12
PROVIDERS: ATTEND Internal Medicine Nephrology
DX: I12.9 Hypertensive chronic kidney disease with stage 1 through stage 4 chronic kidney disease, or unspecified chronic kidney disease (principal); N18.3 Chronic kidney disease, stage 3 (moderate); D64.9 Anemia, unspecified; E87.2 Acidosis
CPT/HCPCS: 36415; 80069; 81000; 82306; 82570; 82607; 82728; 82746; 83540; 83735; 83970; 84156; 84550; 85007; 85027

== ENCOUNTER → 2017-10-28 | Outpatient (CLI) | payer MEDICARE, OTHER ==
[2017-10-28] VITALS (9 sets, daily range): BP systolic 109–129; BP diastolic 51–85
[~2017-10-28] VITALS: Ht 172.7 cm; Wt 89.8 kg
[~2017-10-28] MED LIST changes: +ACETAMINOPHEN 500 MG TAB (TYLENOL) PO PRN; +CATHETER FLUSH 10 ML SYR IV PRN; +EPINEPHrine INJECTION 1 MG/ML AMP SC PRN; +INFLIXIMAB IV SCH; +NS IV SCH; +diphenhydrAMINE 50 MG/ML INJ (BENADRYL) IV PRN; +methylPREDNISolone 40 MG/ML (Solu-MEDROL) VIAL IV PRN
[2017-10-28 12:16] LABS: HEMOGLOBIN 13.1 G/DL (11.5-16.0); MEAN PLATELET VOLUME 10.2 FL (7.4-10.4); RED BLOOD COUNT 4.57 10^6/uL (4.35-5.85); RED CELL DISTRIBUTION WIDTH 14.3 % (10.0-14.5); WHITE BLOOD COUNT 4.1 10^3/uL (4.3-11.0)
[2017-10-28 12:38] LABS: ALBUMIN 3.8 GM/DL (3.2-4.5); BILIRUBIN,TOTAL 0.4 MG/DL (0.1-1.0); CALCIUM 9.5 MG/DL (8.5-10.1); CREATININE SERUM 1.37 MG/DL (0.60-1.30); POTASSIUM 4.2 MMOL/L (3.6-5.0); TOTAL PROTEIN 7.3 GM/DL (6.4-8.2)
[2017-10-28] MEDS: INFLIXIMAB DYYB IV SCH ×2 (12:42→12:43)
[2017-10-28] MEDS: NORMAL SALINE IV SCH ×2 (12:42→12:43)
[2017-10-28] MEDS: NS IV 1000 ML 2,000 ML IV PRN ×2 (15:10→16:25)
== END ==
LOC: SDC 11:14
PROVIDERS: ATTEND Family Medicine
DX: E86.0 Dehydration (principal); K31.89 Other diseases of stomach and duodenum; K50.118 Crohn's disease of large intestine with other complication
CPT/HCPCS: 36415; 36591; 80053; 85027; 96361; 96365; 96375

== ENCOUNTER 2017-12-01 11:35 | Outpatient (RCR) | payer MEDICARE, OTHER ==
[2017-10-03] MEDS: ACETAMINOPHEN 500 MG TAB (TYLENOL) PO SCH (14:15)
[2017-10-03] MEDS: diphenhydrAMINE 50 MG/ML INJ (BENADRYL) IV SCH (14:17)
[2017-10-03 15:00] VITALS: BP 150/90
[2017-10-05] MEDS: ACETAMINOPHEN 500 MG TAB (TYLENOL) PO SCH (13:50)
[2017-10-05] MEDS: diphenhydrAMINE 50 MG/ML INJ (BENADRYL) IV SCH (14:00)
[2017-10-05] MEDS: IRON SUCROSE 250 MG/NS 100 ML IVPB IV SCH ×2 (14:20)
[2017-10-05 14:52] VITALS: BP 146/88
[2017-10-07] MEDS: ACETAMINOPHEN 500 MG TAB (TYLENOL) PO SCH (12:57)
[2017-10-07] MEDS: diphenhydrAMINE 50 MG/ML INJ (BENADRYL) IV SCH (12:57)
[2017-10-07] MEDS: IRON SUCROSE 250 MG/NS 100 ML IVPB IV SCH ×2 (13:00)
[2017-10-07 13:02] VITALS: BP 133/73
[2017-10-07 13:33] VITALS: BP 133/73
[2017-10-11] MEDS: diphenhydrAMINE 50 MG/ML INJ (BENADRYL) IV SCH (13:37)
[2017-10-11] MEDS: ACETAMINOPHEN 500 MG TAB (TYLENOL) PO SCH (13:40)
[2017-10-11] MEDS: IRON SUCROSE 250 MG/NS 100 ML IVPB IV SCH ×2 (13:58)
[2017-10-11 14:32] VITALS: BP 143/77
[2017-10-18] MEDS: ACETAMINOPHEN 500 MG TAB (TYLENOL) PO SCH (12:20)
[2017-10-18] MEDS: diphenhydrAMINE 50 MG/ML INJ (BENADRYL) IV SCH (12:20)
[2017-10-18] MEDS: IRON SUCROSE 250 MG/NS 100 ML IVPB IV SCH ×2 (12:45)
[2017-10-18 13:23] VITALS: BP 156/81
[~2017-12-01] VITALS: Ht 172.7 cm; Wt 89.8 kg
[~2017-12-01 11:35] MED LIST changes: -ACETAMINOPHEN 500 MG TAB (TYLENOL) PO PRN; -CATHETER FLUSH 10 ML SYR IV PRN; -EPINEPHrine INJECTION 1 MG/ML AMP SC PRN; +HEParin (CENTRAL IV FLUSH) 500 UNIT/5 ML SYR ONE; +HYDR-34 PO; -HYDR-3816 PO; -INFLIXIMAB IV SCH; +IRON SUCROSE 200 MG/NS 100 ML (IVPB) IV ONE; -NS IV SCH; -diphenhydrAMINE 50 MG/ML INJ (BENADRYL) IV PRN; -methylPREDNISolone 40 MG/ML (Solu-MEDROL) VIAL IV PRN
[2017-12-01 11:50] VITALS: BP 130/67
[2018-01-02] MEDS ORDERED: NS IV 1000 ML 2,000 ML ONE (12:08)
== END 2018-01-01 | disposition home or self-care (01) ==
LOC: SDC 11:35
PROVIDERS: ATTEND Family Medicine
DX: D50.9 Iron deficiency anemia, unspecified (principal); N18.9 Chronic kidney disease, unspecified
CPT/HCPCS: 96365; 96375; 96523

== ENCOUNTER → 2017-12-26 | Outpatient (CLI) | payer MEDICARE, OTHER ==
[~2017-12-26] VITALS: Ht 172.7 cm; Wt 89.8 kg
[~2017-12-26] MED LIST changes: +ACETAMINOPHEN 500 MG TAB (TYLENOL) ONE; -HEParin (CENTRAL IV FLUSH) 500 UNIT/5 ML SYR ONE; -IRON SUCROSE 200 MG/NS 100 ML (IVPB) IV ONE; +NS IV 1000 ML 1,000 ML IV SCH; +NS IV 1000 ML 2,000 ML ONE
[2017-12-26 13:17] VITALS: BP 136/74
[2017-12-26 15:05] VITALS: BP 136/74
== END ==
LOC: SDC 12:32
PROVIDERS: ATTEND Family Medicine
DX: K50.90 Crohn's disease, unspecified, without complications (principal)
CPT/HCPCS: 36591

== ENCOUNTER → 2018-02-09 | Outpatient (CLI) | payer MEDICARE, OTHER ==
[~2018-02-09] VITALS: Ht 172.7 cm; Wt 89.1 kg
[~2018-02-09] MED LIST changes: +ACETAMINOPHEN 500 MG TAB (TYLENOL) PO ONE; +INFLIXIMAB DYYB IV ONE; +INFLIXIMAB DYYB IV SCH; +NORMAL SALINE IV ONE; +NORMAL SALINE IV SCH; +NS IV 1000 ML 0 ML ONE; -NS IV 1000 ML 1,000 ML IV SCH; -NS IV 1000 ML 2,000 ML ONE; +diphenhydrAMINE 50 MG/ML INJ (BENADRYL) IM NR; +diphenhydrAMINE 50 MG/ML INJ (BENADRYL) IVP ONE; +diphenhydrAMINE 50 MG/ML INJ (BENADRYL) ONE; +methylPREDNISolone 40 MG/ML (Solu-MEDROL) VIAL IV ONE; +methylPREDNISolone 40 MG/ML (Solu-MEDROL) VIAL ONE
[2018-02-09 12:48] LABS: HEMOGLOBIN 12.4 G/DL (11.5-16.0); MEAN PLATELET VOLUME 9.9 FL (7.4-10.4); RED BLOOD COUNT 4.19 10^6/uL (4.35-5.85); RED CELL DISTRIBUTION WIDTH 12.5 % (10.0-14.5); WHITE BLOOD COUNT 5.5 10^3/uL (4.3-11.0)
[2018-02-09 12:54] VITALS: BP 152/83
[2018-02-09 13:11] LABS: BILIRUBIN,TOTAL 0.4 MG/DL (0.1-1.0); CALCIUM 9.8 MG/DL (8.5-10.1); CREATININE SERUM 1.03 MG/DL (0.60-1.30); POTASSIUM 3.6 MMOL/L (3.6-5.0); TOTAL PROTEIN 7.5 GM/DL (6.4-8.2)
[2018-02-09 15:30] VITALS: BP 152/83
== END ==
LOC: SDC 12:03
PROVIDERS: ATTEND Family Medicine
DX: K50.118 Crohn's disease of large intestine with other complication (principal)
CPT/HCPCS: 36415; 36591; 80053; 85027; 96365; 96366

== ENCOUNTER → 2018-03-21 | Outpatient (CLI) | payer MEDICARE, OTHER ==
[~2018-03-21] VITALS: Ht 172.7 cm; Wt 89.1 kg
[~2018-03-21] MED LIST changes: -ACETAMINOPHEN 500 MG TAB (TYLENOL) ONE; -ACETAMINOPHEN 500 MG TAB (TYLENOL) PO ONE; -INFLIXIMAB DYYB IV ONE; -INFLIXIMAB DYYB IV SCH; -NORMAL SALINE IV ONE; -NORMAL SALINE IV SCH; -NS IV 1000 ML 0 ML ONE; -diphenhydrAMINE 50 MG/ML INJ (BENADRYL) IM NR; -diphenhydrAMINE 50 MG/ML INJ (BENADRYL) IVP ONE; -diphenhydrAMINE 50 MG/ML INJ (BENADRYL) ONE; -methylPREDNISolone 40 MG/ML (Solu-MEDROL) VIAL IV ONE; -methylPREDNISolone 40 MG/ML (Solu-MEDROL) VIAL ONE
[2018-03-21 09:37] LABS: BASOPHILS % (AUTO) 1 % (0-10); EOSINOPHILS # (AUTO) 0.1 10^3/uL (0.0-0.3); EOSINOPHILS % (AUTO) 2 % (0-10); HEMATOCRIT 38 % (35-52); HEMOGLOBIN 12.2 G/DL (11.5-16.0); LYMPHOCYTES % (AUTO) 19 % (12-44); MEAN CORPUSCULAR HEMOGLOBIN 29 PG (25-34); MEAN CORPUSCULAR HGB CONC 32 G/DL (32-36); MEAN CORPUSCULAR VOLUME 90 FL (80-99); MEAN PLATELET VOLUME 10.2 FL (7.4-10.4); MONOCYTES # (AUTO) 0.4 X 10^3 (0.0-1.0); MONOCYTES % (AUTO) 9 % (0-12); NEUTROPHILS # (AUTO) 3.5 X 10^3 (1.8-7.8); NEUTROPHILS % (AUTO) 70 % (42-75); PLATELET COUNT 206 10^3/uL (130-400); RED BLOOD COUNT 4.18 10^6/uL (4.35-5.85); RED CELL DISTRIBUTION WIDTH 12.5 % (10.0-14.5); WHITE BLOOD COUNT 5.1 10^3/uL (4.3-11.0)
[2018-03-21 10:01] LABS: ALBUMIN 3.9 GM/DL (3.2-4.5); CALCIUM 9.6 MG/DL (8.5-10.1); CREATININE SERUM 1.17 MG/DL (0.60-1.30); MAGNESIUM 1.5 MG/DL (1.8-2.4); POTASSIUM 3.3 MMOL/L (3.6-5.0); URIC ACID 7.2 MG/DL (2.6-7.2)
[2018-03-21 10:34] LABS: BILIRUBIN,URINE NEGATIVE (NEGATIVE); CLARITY,URINE CLEAR; COLOR,URINE YELLOW; GLUCOSE, URINE (UA) NEGATIVE (NEGATIVE); KETONES,URINE NEGATIVE (NEGATIVE); LEUKOCYTE ESTERASE ,URINE 1+ (NEGATIVE); NITRITE,URINE NEGATIVE (NEGATIVE); PH,URINE 5 (5-9); PROTEIN,URINE NEGATIVE (NEGATIVE); UROBILINOGEN,URINE NORMAL (NORMAL)
[2018-03-21 10:42] LABS: BACTERIA,URINE TRACE /HPF; SQUAMOUS EPITHELIAL CELL,UR 0-2 /HPF
[2018-03-21 10:50] LABS: URINE CREATININE FOR RATIO 51 MG/DL (30-125); URINE PROTEIN FOR RATIO ONLY < 6 MG/DL (6-12)
[2018-03-21 11:15] VITALS: BP 139/74
== END ==
LOC: SDC 10:09
PROVIDERS: ATTEND Internal Medicine Nephrology
DX: I12.9 Hypertensive chronic kidney disease with stage 1 through stage 4 chronic kidney disease, or unspecified chronic kidney disease (principal); N18.3 Chronic kidney disease, stage 3 (moderate); D50.9 Iron deficiency anemia, unspecified; E79.0 Hyperuricemia without signs of inflammatory arthritis and tophaceous disease
CPT/HCPCS: 36415; 36591; 80069; 81000; 82306; 82570; 82607; 82728; 82746; 83540; 83735; 83970; 84156; 84550; 85025; 87088

== ENCOUNTER 2018-03-23 12:47 | Outpatient (RCR) | payer MEDICARE, OTHER ==
[2017-12-29 13:09] LABS: HEMOGLOBIN 13.1 G/DL (11.5-16.0); MEAN PLATELET VOLUME 9.9 FL (7.4-10.4); RED BLOOD COUNT 4.44 10^6/uL (4.35-5.85); RED CELL DISTRIBUTION WIDTH 14.1 % (10.0-14.5); WHITE BLOOD COUNT 7.2 10^3/uL (4.3-11.0)
[2017-12-29] MEDS: CATHETER FLUSH 10 ML SYR IV PRN (13:16)
[2017-12-29 13:28] VITALS: BP 141/68
[2017-12-29 13:30] LABS: ALBUMIN 4.1 GM/DL (3.2-4.5); BILIRUBIN,TOTAL 0.4 MG/DL (0.1-1.0); CALCIUM 9.8 MG/DL (8.5-10.1); CREATININE SERUM 1.31 MG/DL (0.60-1.30); POTASSIUM 3.7 MMOL/L (3.6-5.0); TOTAL PROTEIN 7.4 GM/DL (6.4-8.2)
[2017-12-29 16:03] VITALS: BP 142/79
[2017-12-29 16:04] VITALS: BP 142/79
[2018-01-20 13:35] VITALS: BP 141/82
[2018-01-31] MEDS: CATHETER FLUSH 10 ML SYR IV PRN (11:35)
[2018-01-31 11:40] VITALS: BP 142/76
[2018-01-31 13:53] VITALS: BP 142/76
[2018-03-01 10:40] VITALS: BP 141/76
[2018-03-09 07:45] VITALS: BP 130/69
[2018-03-09] MEDS: CATHETER FLUSH 10 ML SYR IV PRN (08:05)
[2018-03-21] MEDS: NS IV 1000 ML 1,000 ML IV SCH ×2 (09:15→10:15)
[2018-03-21] MEDS: CATHETER FLUSH 10 ML SYR IV PRN (09:15)
[2018-03-21 11:13] VITALS: BP 139/74
[~2018-03-23] VITALS: Ht 172.7 cm; Wt 89.1 kg
[2018-03-23] VITALS (10 sets, daily range): BP systolic 138–152; BP diastolic 71–89
[~2018-03-23 12:47] MED LIST changes: +ACETAMINOPHEN 500 MG TAB (TYLENOL) ONE; +ACETAMINOPHEN 500 MG TAB (TYLENOL) PO ONE; +INFLIXIMAB DYYB IV ONE; +NORMAL SALINE IV ONE; +NS IV 1000 ML 1,000 ML IV SCH; +NS IV 1000 ML 1,000 ML ONE; +NS IV 1000 ML 2,000 ML IV ONE; +NS IV 1000 ML 2,000 ML ONE; +diphenhydrAMINE 50 MG/ML INJ (BENADRYL) IVP ONE; +diphenhydrAMINE 50 MG/ML INJ (BENADRYL) ONE; +methylPREDNISolone 40 MG/ML (Solu-MEDROL) VIAL IV ONE; +methylPREDNISolone 40 MG/ML (Solu-MEDROL) VIAL ONE
[2018-03-23] MEDS ORDERED: INFLIXIMAB DYYB IV SCH (12:59)
[2018-03-23] MEDS ORDERED: NORMAL SALINE IV SCH (12:59)
[2018-03-23] MEDS ORDERED: ACETAMINOPHEN 500 MG TAB (TYLENOL) ONE (13:02)
[2018-03-23] MEDS ORDERED: methylPREDNISolone 40 MG/ML (Solu-MEDROL) VIAL ONE (13:02)
[2018-03-23] MEDS ORDERED: diphenhydrAMINE 50 MG/ML INJ (BENADRYL) ONE (13:02)
[2018-03-23] MEDS ORDERED: INFLIXIMAB DYYB IV ONE (13:15)
[2018-03-23] MEDS ORDERED: ACETAMINOPHEN 500 MG TAB (TYLENOL) PO ONE (13:15)
[2018-03-23] MEDS ORDERED: NORMAL SALINE IV ONE (13:15)
[2018-03-23] MEDS ORDERED: methylPREDNISolone 40 MG/ML (Solu-MEDROL) VIAL IV ONE (13:15)
[2018-03-23] MEDS ORDERED: diphenhydrAMINE 50 MG/ML INJ (BENADRYL) IVP ONE (13:15)
[2018-03-23 13:21] LABS: HEMOGLOBIN 12.3 G/DL (11.5-16.0); MEAN PLATELET VOLUME 9.7 FL (7.4-10.4); RED BLOOD COUNT 4.19 10^6/uL (4.35-5.85); RED CELL DISTRIBUTION WIDTH 12.6 % (10.0-14.5); WHITE BLOOD COUNT 4.6 10^3/uL (4.3-11.0)
[2018-03-23 13:38] LABS: ALBUMIN 3.9 GM/DL (3.2-4.5); BILIRUBIN,TOTAL 0.5 MG/DL (0.1-1.0); CALCIUM 9.4 MG/DL (8.5-10.1); POTASSIUM 3.3 MMOL/L (3.6-5.0)
== END 2018-03-29 | disposition home or self-care (01) ==
LOC: SDC 12:47
PROVIDERS: ATTEND Family Medicine
DX: K50.90 Crohn's disease, unspecified, without complications (principal)
CPT/HCPCS: 36415; 36591; 80053; 80069; 81000; 82306; 82570; 82607; 82728; 82746; 83540; 83735; 83970; 84156; 84550; 85025; 85027; 87088; 96360; 96361; 96365

== ENCOUNTER 2018-06-15 12:47 | Outpatient (RCR) | payer MEDICARE, OTHER ==
[2018-04-06 09:55] VITALS: BP 126/75
[2018-04-06] MEDS: NS IV 1000 ML 1,000 ML IV SCH ×2 (10:30→11:25)
[2018-05-03] MEDS: methylPREDNISolone 40 MG/ML (Solu-MEDROL) VIAL IV SCH (13:35)
[2018-05-04 13:32] LABS: MEAN PLATELET VOLUME 9.9 FL (7.4-10.4); RED BLOOD COUNT 4.45 10^6/uL (4.35-5.85); WHITE BLOOD COUNT 5.1 10^3/uL (4.3-11.0)
[2018-05-04] MEDS: ACETAMINOPHEN 500 MG TAB (TYLENOL) PO SCH (13:35)
[2018-05-04] MEDS: diphenhydrAMINE 50 MG/ML INJ (BENADRYL) IV PRN (13:35)
[2018-05-04] MEDS: NS IV 1000 ML 2,000 ML IV PRN (13:35)
[2018-05-04 13:49] LABS: BILIRUBIN,TOTAL 0.4 MG/DL (0.1-1.0); CREATININE SERUM 1.12 MG/DL (0.60-1.30); POTASSIUM 3.8 MMOL/L (3.6-5.0); TOTAL PROTEIN 7.4 GM/DL (6.4-8.2)
[2018-05-04 13:58] VITALS: BP 142/78
[2018-05-04 16:15] VITALS: BP 142/78
[2018-05-23 13:12] VITALS: BP 155/85
[2018-05-23] MEDS: NS IV 1000 ML 2,000 ML IV PRN (13:35)
[~2018-06-15] VITALS: Ht 172.7 cm; Wt 89.1 kg
[~2018-06-15 12:47] MED LIST changes: -ACETAMINOPHEN 500 MG TAB (TYLENOL) PO ONE; -INFLIXIMAB DYYB IV ONE; +INFLIXIMAB DYYB IV SCH; -NORMAL SALINE IV ONE; +NORMAL SALINE IV SCH; -NS IV 1000 ML 1,000 ML IV SCH; -NS IV 1000 ML 2,000 ML IV ONE; -NS IV 1000 ML 2,000 ML ONE; -diphenhydrAMINE 50 MG/ML INJ (BENADRYL) IVP ONE; +methylPREDNISolone 125 MG (Solu-MEDROL) VIAL ONE; -methylPREDNISolone 40 MG/ML (Solu-MEDROL) VIAL IV ONE; -methylPREDNISolone 40 MG/ML (Solu-MEDROL) VIAL ONE
[2018-06-15] MEDS ORDERED: NORMAL SALINE IV SCH (13:00)
[2018-06-15] MEDS ORDERED: INFLIXIMAB DYYB IV SCH (13:00)
[2018-06-15] MEDS: ACETAMINOPHEN 500 MG TAB (TYLENOL) PO SCH (13:05)
[2018-06-15] MEDS: NS IV 1000 ML 2,000 ML IV PRN (13:25)
[2018-06-15] MEDS: diphenhydrAMINE 50 MG/ML INJ (BENADRYL) IV PRN (13:26)
[2018-06-15] MEDS: methylPREDNISolone 40 MG/ML (Solu-MEDROL) VIAL IV SCH (13:35)
[2018-06-15 13:51] LABS: HEMOGLOBIN 12.3 G/DL (11.5-16.0); MEAN PLATELET VOLUME 10.4 FL (7.4-10.4); RED BLOOD COUNT 4.08 10^6/uL (4.35-5.85); RED CELL DISTRIBUTION WIDTH 13.1 % (10.0-14.5); WHITE BLOOD COUNT 5.7 10^3/uL (4.3-11.0)
[2018-06-15 14:14] LABS: ALBUMIN 3.9 GM/DL (3.2-4.5); BILIRUBIN,TOTAL 0.4 MG/DL (0.1-1.0); CALCIUM 9.7 MG/DL (8.5-10.1); CREATININE SERUM 1.2 MG/DL (0.60-1.30); POTASSIUM 3.6 MMOL/L (3.6-5.0)
[2018-06-15 15:45] VITALS: BP 134/77
== END 2018-07-05 | disposition home or self-care (01) ==
LOC: SDC 12:47
PROVIDERS: ATTEND Family Medicine
DX: K50.90 Crohn's disease, unspecified, without complications (principal)
CPT/HCPCS: 36415; 36591; 80053; 85027; 96360; 96361; 96365; 96366; 96367; 96374; 96375

== ENCOUNTER 2018-07-14 10:22 | Outpatient (RCR) | payer MEDICARE, OTHER ==
[2018-07-10 10:50] VITALS: BP 143/92
[~2018-07-14] VITALS: Ht 172.7 cm; Wt 89.1 kg
[~2018-07-14 10:22] MED LIST changes: -ACETAMINOPHEN 500 MG TAB (TYLENOL) ONE; -INFLIXIMAB DYYB IV SCH; -NORMAL SALINE IV SCH; +NS IV 1000 ML 1,000 ML IV SCH; -NS IV 1000 ML 1,000 ML ONE; +NS IV 1000 ML 2,000 ML ONE; -diphenhydrAMINE 50 MG/ML INJ (BENADRYL) ONE; -methylPREDNISolone 125 MG (Solu-MEDROL) VIAL ONE
[2018-07-14] MEDS ORDERED: NS IV 1000 ML 2,000 ML ONE (10:23)
[2018-07-14 10:25] VITALS: BP 141/77
[2018-07-14] MEDS: NS IV 1000 ML 1,000 ML IV PRN ×2 (10:40→11:36)
== END 2018-07-16 | disposition home or self-care (01) ==
LOC: SDC 10:22
PROVIDERS: ATTEND Family Medicine
DX: K50.90 Crohn's disease, unspecified, without complications (principal)
CPT/HCPCS: 96360; 96361

== ENCOUNTER 2018-10-20 12:56 | Outpatient (RCR) | payer MEDICARE, OTHER ==
[2018-07-27 12:45] VITALS: BP 130/81
[2018-07-27 13:23] LABS: HEMOGLOBIN 12.3 G/DL (11.5-16.0); MEAN PLATELET VOLUME 9.9 FL (7.4-10.4); RED BLOOD COUNT 4.19 10^6/uL (4.35-5.85); RED CELL DISTRIBUTION WIDTH 12.9 % (10.0-14.5); WHITE BLOOD COUNT 5.3 10^3/uL (4.3-11.0)
[2018-07-27 13:45] LABS: BILIRUBIN,TOTAL 0.4 MG/DL (0.1-1.0); CALCIUM 9.8 MG/DL (8.5-10.1); CREATININE SERUM 1.29 MG/DL (0.60-1.30); POTASSIUM 3.5 MMOL/L (3.6-5.0); TOTAL PROTEIN 7.3 GM/DL (6.4-8.2)
[2018-07-27] MEDS: NS IV 1000 ML 1,000 ML IV SCH ×2 (13:46→14:45)
[2018-07-27] MEDS: INFLIXIMAB DYYB IV SCH (14:11)
[2018-07-27] MEDS: NORMAL SALINE IV SCH (14:11)
[2018-07-27 14:45] VITALS: BP 130/81
[2018-07-27 15:20] VITALS: BP 136/70
[2018-07-27 16:35] VITALS: BP 141/83
[2018-08-21] MEDS: NS IV 1000 ML 1,000 ML IV PRN (13:15)
[2018-08-21 13:20] VITALS: BP 154/83
[2018-09-08 12:15] VITALS: BP 145/71
[2018-09-08] MEDS: NS IV 1000 ML 1,000 ML IV PRN ×2 (12:37→13:34)
[2018-09-08] MEDS: ACETAMINOPHEN 500 MG TAB (TYLENOL) PO SCH (12:37)
[2018-09-08] MEDS: diphenhydrAMINE 50 MG/ML INJ (BENADRYL) IVP PRN (12:37)
[2018-09-08] MEDS: methylPREDNISolone 40 MG/ML (Solu-MEDROL) VIAL IV PRN (12:45)
[2018-09-08] MEDS: NORMAL SALINE IV SCH (12:59)
[2018-09-08] MEDS: INFLIXIMAB DYYB IV SCH (12:59)
[2018-09-08 14:36] LABS: BASOPHILS % (AUTO) 0 % (0-10); EOSINOPHILS # (AUTO) 0.1 10^3/uL (0.0-0.3); EOSINOPHILS % (AUTO) 1 % (0-10); HEMATOCRIT 40 % (35-52); HEMOGLOBIN 12.6 G/DL (11.5-16.0); LYMPHOCYTES # (AUTO) 1.1 X 10^3 (1.0-4.0); LYMPHOCYTES % (AUTO) 11 % (12-44); MEAN CORPUSCULAR HEMOGLOBIN 29 PG (25-34); MEAN CORPUSCULAR HGB CONC 32 G/DL (32-36); MEAN CORPUSCULAR VOLUME 90 FL (80-99); MEAN PLATELET VOLUME 10.7 FL (7.4-10.4); MONOCYTES # (AUTO) 0.6 X 10^3 (0.0-1.0); MONOCYTES % (AUTO) 6 % (0-12); NEUTROPHILS # (AUTO) 8.2 X 10^3 (1.8-7.8); NEUTROPHILS % (AUTO) 82 % (42-75); PLATELET COUNT 228 10^3/uL (130-400)
[2018-09-08 14:48] LABS: ALBUMIN 3.9 GM/DL (3.2-4.5); BILIRUBIN,TOTAL 0.4 MG/DL (0.1-1.0); CALCIUM 9.8 MG/DL (8.5-10.1); CREATININE SERUM 1.19 MG/DL (0.60-1.30); POTASSIUM 3.9 MMOL/L (3.6-5.0); TOTAL PROTEIN 7.1 GM/DL (6.4-8.2)
--- NOTE | 2018-09-08 15:10 | NUR ---
INFUSION COMPLETED. PORT FLUSHED WITH 20 ML OF NS FLUSH, NEEDLE DEACCESSED TIP INTACT. PT DISCHARGED AMBULATORY TO HOME.
[2018-10-02 11:20] VITALS: BP 133/79
[2018-10-02] MEDS: NS IV 1000 ML 1,000 ML IV PRN ×2 (11:40→12:41)
[2018-10-13 13:05] VITALS: BP 126/81
[2018-10-13] MEDS: NS IV 1000 ML 1,000 ML IV PRN ×2 (13:55→15:00)
[~2018-10-20] VITALS: Ht 172.7 cm; Wt 89.1 kg
[2018-10-20 12:56] VITALS: BP 141/86
[~2018-10-20 12:56] MED LIST changes: +ACETAMINOPHEN 500 MG TAB (TYLENOL) PO PRN; -NS IV 1000 ML 1,000 ML IV SCH; +diphenhydrAMINE 50 MG/ML INJ (BENADRYL) IVP ONE; +methylPREDNISolone 40 MG/ML (Solu-MEDROL) VIAL IV ONE; +methylPREDNISolone 40 MG/ML (Solu-MEDROL) VIAL ONE
[2018-10-20] MEDS: ACETAMINOPHEN 500 MG TAB (TYLENOL) PO SCH (13:14)
[2018-10-20] MEDS: methylPREDNISolone 40 MG/ML (Solu-MEDROL) VIAL IV PRN (13:23)
[2018-10-20] MEDS: NS IV 1000 ML 1,000 ML IV PRN ×2 (13:23→14:25)
[2018-10-20] MEDS: diphenhydrAMINE 50 MG/ML INJ (BENADRYL) IVP PRN (13:26)
[2018-10-20] MEDS: NORMAL SALINE IV SCH (13:39)
[2018-10-20] MEDS: INFLIXIMAB DYYB IV SCH (13:39)
[2018-10-20 13:41] LABS: HEMOGLOBIN 12.2 G/DL (11.5-16.0); MEAN PLATELET VOLUME 10.4 FL (7.4-10.4); RED BLOOD COUNT 4.16 10^6/uL (4.35-5.85); RED CELL DISTRIBUTION WIDTH 13.2 % (10.0-14.5); WHITE BLOOD COUNT 4.8 10^3/uL (4.3-11.0)
[2018-10-20 13:55] LABS: BILIRUBIN,TOTAL 0.4 MG/DL (0.1-1.0); CALCIUM 9.8 MG/DL (8.5-10.1); CREATININE SERUM 1.18 MG/DL (0.60-1.30); TOTAL PROTEIN 7.2 GM/DL (6.4-8.2)
[2018-10-20 15:15] VITALS: BP 123/66
[2018-10-20 16:05] VITALS: BP 127/82
--- NOTE | 2018-10-20 16:10 | NUR ---
INFUSION COMPLETED. PORT FLUSHED WITH 20 ML OF NORMAL SALINE. PORT ACCESS REMOVED, NEEDLE TIP INTACT. PATIENT DISCHARGED AMBULATORY TO HOME AT THIS TIME, UNACCOMPANIED.
== END 2018-10-25 | disposition home or self-care (01) ==
LOC: SDC 12:56
PROVIDERS: ATTEND Family Medicine
DX: E86.0 Dehydration (principal); K31.89 Other diseases of stomach and duodenum; K50.90 Crohn's disease, unspecified, without complications
CPT/HCPCS: 36415; 36591; 80053; 82306; 85025; 85027; 96360; 96361; 96367; 96374; 96375; 96523; Q5102

== ENCOUNTER → 2018-12-04 | Outpatient (CLI) | payer MEDICARE, OTHER ==
[~2018-12-04] VITALS: Ht 172.7 cm; Wt 89.1 kg
[2018-12-04] VITALS (7 sets, daily range): BP systolic 130–138; BP diastolic 74–96
[~2018-12-04] MED LIST changes: -ACETAMINOPHEN 500 MG TAB (TYLENOL) PO PRN; +ACETAMINOPHEN 500 MG TAB (TYLENOL) PO SCH; -ADAL10SY; -ADAL40PE INJ; -ALPR.25T PO; -ALPR0.25 PO; -ALPR0.254 PO; -ARIP10TA10 PO; -ARIP5TAB20 PO; -ARMO150T3 PO; -ARMO250T3 PO; -ARPZ10T PO; -BUDE3CAP5 PO; +CATHETER FLUSH 10 ML SYR IV PRN; -CEPH500C PO; -CLON1PAT TD; -CNC1KV IJ; -CNC1KV SC; -COLE625T9 PO; -CYCL10TA9 PO; -DILT300C49 PO; -DILT30TA PO; -DIPH1TAB25 PO; +EPINEPHrine INJECTION 1 MG/ML AMP SC SCH; -ESCI20TA2 PO; -ESCI20TA45 PO; -FLC100T1 PO; -HYDR-34 PO; -HYDR-3923 PO; -HYDR-3924 PO; +INFLIXIMAB DYYB IV SCH; -LACT1CAP45 PO; -LIRA0.6P SQ; -LISI20TA2 PO; -LOPE2CAP PO; -LOPE2TAB34 PO; -LORA-404 PO; -LORA0.5T PO; -METF-380 PO; -METR500T PO; -MODA200T PO; -MSL400TEC PO; -MTF500T PO; -NFNEB10T PO; -NS IV 1000 ML 2,000 ML ONE; -OMEP20CA12 PO; -OMEP20CA6 PO; -ONDA8TAB13 PO; -ONDA8TAB9 PO; -PNT40TEC PO; -PROM12.59 PO; -RIFA550T PO; -SCR1T PO; -SENN-20 PO; -SITA1TAB6 PO; +SODIUM CHLORIDE IV SCH; -SUCR1TAB36 PO; -TRAM50TA2 PO; -VITAMIN B12 LIQUID PO; -ZLP10T PO; -ZOLP10TA5 PO; +diphenhydrAMINE 50 MG/ML INJ (BENADRYL) IV SCH; -diphenhydrAMINE 50 MG/ML INJ (BENADRYL) IVP ONE; -methylPREDNISolone 40 MG/ML (Solu-MEDROL) VIAL IV ONE; +methylPREDNISolone 40 MG/ML (Solu-MEDROL) VIAL IV SCH; -methylPREDNISolone 40 MG/ML (Solu-MEDROL) VIAL ONE
[2018-12-04 12:29] LABS: HEMOGLOBIN 12.6 G/DL (11.5-16.0); MEAN PLATELET VOLUME 10.4 FL (7.4-10.4); RED CELL DISTRIBUTION WIDTH 13.4 % (10.0-14.5); WHITE BLOOD COUNT 4.9 10^3/uL (4.3-11.0)
--- NOTE | 2018-12-04 12:35 | NUR ---
INFLECTRA 400 MG IV STARTED AT 10 CC/HR PER PUMP WITH FILTER. 1250: INFLECTRA INCREASED TO 20 CC/HR. 1305: INFLECTRA INCREASED TO 40 CC/HR. 1320: INFLECTRA INCREASED TO 80 CC/HR. 1335: INFLECTRA INCREASED TO 150 CC/HR. 1350: INFLECTRA INCREASED TO 250 CC/HR.
[2018-12-04 12:55] LABS: ALBUMIN 3.9 GM/DL (3.2-4.5); BILIRUBIN,TOTAL 0.4 MG/DL (0.1-1.0); CALCIUM 9.6 MG/DL (8.5-10.1); CREATININE SERUM 1.17 MG/DL (0.60-1.30); POTASSIUM 3.5 MMOL/L (3.6-5.0); TOTAL PROTEIN 7.1 GM/DL (6.4-8.2)
== END ==
LOC: SDC 11:54
PROVIDERS: ATTEND Family Medicine
DX: K50.90 Crohn's disease, unspecified, without complications (principal)
CPT/HCPCS: 36415; 80053; 85027; 96365; 96366; Q5102

== ENCOUNTER → 2018-12-22 | Outpatient (CLI) | payer MEDICARE, OTHER ==
[~2018-12-22] VITALS: Ht 172.7 cm; Wt 89.1 kg
[~2018-12-22] MED LIST changes: -ACETAMINOPHEN 500 MG TAB (TYLENOL) PO SCH; +ADAL10SY; +ADAL40PE INJ; +ALPR.25T PO; +ALPR0.25 PO; +ALPR0.254 PO; +ARIP10TA10 PO; +ARIP5TAB20 PO; +ARMO150T3 PO; +ARMO250T3 PO; +ARPZ10T PO; +BUDE3CAP5 PO; -CATHETER FLUSH 10 ML SYR IV PRN; +CEPH500C PO; +CLON1PAT TD; +CNC1KV IJ; +CNC1KV SC; +COLE625T9 PO; +CYCL10TA9 PO; +DILT300C49 PO; +DILT30TA PO; +DIPH1TAB25 PO; -EPINEPHrine INJECTION 1 MG/ML AMP SC SCH; +ESCI20TA2 PO; +ESCI20TA45 PO; +FLC100T1 PO; +HYDR-34 PO; +HYDR-3923 PO; +HYDR-3924 PO; -INFLIXIMAB DYYB IV SCH; +LACT1CAP45 PO; +LIRA0.6P SQ; +LISI20TA2 PO; +LOPE2CAP PO; +LOPE2TAB34 PO; +LORA-404 PO; +LORA0.5T PO; +METF-380 PO; +METR500T PO; +MODA200T PO; +MSL400TEC PO; +MTF500T PO; +NFNEB10T PO; +NS IV 1000 ML 2,000 ML IV PRN; +NS IV 1000 ML 2,000 ML ONE; +OMEP20CA12 PO; +OMEP20CA6 PO; +ONDA8TAB13 PO; +ONDA8TAB9 PO; +PNT40TEC PO; +PROM12.59 PO; +RIFA550T PO; +SCR1T PO; +SENN-20 PO; +SITA1TAB6 PO; -SODIUM CHLORIDE IV SCH; +SUCR1TAB36 PO; +TRAM50TA2 PO; +VITAMIN B12 LIQUID PO; +ZLP10T PO; +ZOLP10TA5 PO; -diphenhydrAMINE 50 MG/ML INJ (BENADRYL) IV SCH; -methylPREDNISolone 40 MG/ML (Solu-MEDROL) VIAL IV SCH
[2018-12-22 13:35] VITALS: BP 134/79
== END ==
LOC: SDC 10:59
PROVIDERS: ATTEND Family Medicine
DX: E86.0 Dehydration (principal); K91.1 Postgastric surgery syndromes
CPT/HCPCS: 96365; 96366

== ENCOUNTER → 2019-02-26 | Outpatient (CLI) | payer MEDICARE, OTHER ==
[2018-12-04 14:25] VITALS: BP 130/80
[~2019-02-26] MED LIST changes: +ACETAMINOPHEN 500 MG TAB (TYLENOL) PO PRN; +ACETAMINOPHEN 500 MG TAB (TYLENOL) PO SCH; +EPINEPHrine INJECTION 1 MG/ML AMP SC PRN; +INFLIXIMAB DYYB IV SCH; -NS IV 1000 ML 2,000 ML IV PRN; +SODIUM CHLORIDE IV SCH; +diphenhydrAMINE 50 MG/ML INJ (BENADRYL) IV PRN; +diphenhydrAMINE 50 MG/ML INJ (BENADRYL) IV SCH; +methylPREDNISolone 40 MG/ML (Solu-MEDROL) VIAL IV SCH
[2019-02-26 11:39] LABS: HEMOGLOBIN 13.3 G/DL (11.5-16.0); MEAN PLATELET VOLUME 10.1 FL (7.4-10.4); RED CELL DISTRIBUTION WIDTH 13.3 % (10.0-14.5); WHITE BLOOD COUNT 6.3 10^3/uL (4.3-11.0)
[2019-02-26 12:00] LABS: ALBUMIN 4.2 GM/DL (3.2-4.5); BILIRUBIN,TOTAL 0.5 MG/DL (0.1-1.0); CALCIUM 10.1 MG/DL (8.5-10.1); CREATININE SERUM 1.46 MG/DL (0.60-1.30); POTASSIUM 3.5 MMOL/L (3.6-5.0); TOTAL PROTEIN 7.6 GM/DL (6.4-8.2)
== END ==
LOC: SDC 11:09
PROVIDERS: ATTEND Family Medicine
DX: K50.90 Crohn's disease, unspecified, without complications (principal)
CPT/HCPCS: 36415; 80053; 85027

== ENCOUNTER 2019-04-26 15:21 | Outpatient (CLI) | payer MEDICARE, OTHER ==
[~2019-04-26] VITALS: Ht 172.7 cm; Wt 89.1 kg
[~2019-04-26 15:21] MED LIST changes: -ACETAMINOPHEN 500 MG TAB (TYLENOL) PO PRN; -ACETAMINOPHEN 500 MG TAB (TYLENOL) PO SCH; -EPINEPHrine INJECTION 1 MG/ML AMP SC PRN; -INFLIXIMAB DYYB IV SCH; -NS IV 1000 ML 2,000 ML ONE; -SODIUM CHLORIDE IV SCH; -diphenhydrAMINE 50 MG/ML INJ (BENADRYL) IV PRN; -diphenhydrAMINE 50 MG/ML INJ (BENADRYL) IV SCH; -methylPREDNISolone 40 MG/ML (Solu-MEDROL) VIAL IV SCH
[2019-04-26 15:30] VITALS: BP 150/81
[2019-04-26 15:47] LABS: BASOPHILS % (AUTO) 1 % (0-10); EOSINOPHILS # (AUTO) 0.1 10^3/uL (0.0-0.3); EOSINOPHILS % (AUTO) 2 % (0-10); HEMATOCRIT 38 % (35-52); HEMOGLOBIN 12.4 G/DL (11.5-16.0); LYMPHOCYTES # (AUTO) 1.4 X 10^3 (1.0-4.0); LYMPHOCYTES % (AUTO) 28 % (12-44); MEAN CORPUSCULAR HEMOGLOBIN 29 PG (25-34); MEAN CORPUSCULAR HGB CONC 32 G/DL (32-36); MEAN CORPUSCULAR VOLUME 91 FL (80-99); MEAN PLATELET VOLUME 10.6 FL (7.4-10.4); MONOCYTES # (AUTO) 0.5 X 10^3 (0.0-1.0); MONOCYTES % (AUTO) 9 % (0-12); NEUTROPHILS # (AUTO) 2.9 X 10^3 (1.8-7.8); NEUTROPHILS % (AUTO) 60 % (42-75); PLATELET COUNT 229 10^3/uL (130-400); WHITE BLOOD COUNT 4.9 10^3/uL (4.3-11.0)
[2019-04-26 16:00] LABS: BILIRUBIN,TOTAL 0.3 MG/DL (0.1-1.0); CALCIUM 9.8 MG/DL (8.5-10.1); CREATININE SERUM 1.09 MG/DL (0.60-1.30); POTASSIUM 3.7 MMOL/L (3.6-5.0); TOTAL PROTEIN 7.3 GM/DL (6.4-8.2)
== END 2019-04-26 15:30 | disposition home or self-care (01) ==
LOC: SDC 15:21
PROVIDERS: ATTEND Nurse Practitioner Family
DX: E11.65 Type 2 diabetes mellitus with hyperglycemia (principal); E87.6 Hypokalemia; R09.81 Nasal congestion
CPT/HCPCS: 36415; 36591; 80053; 83036; 85025

== ENCOUNTER 2019-05-21 10:20 | Outpatient (RCR) | payer MEDICARE, OTHER ==
[2019-04-23 12:24] VITALS: BP 143/87
[2019-04-23 12:39] LABS: CALCIUM 9.3 MG/DL (8.5-10.1); CREATININE SERUM 1.06 MG/DL (0.60-1.30); POTASSIUM 3.4 MMOL/L (3.6-5.0)
[~2019-05-21] VITALS: Ht 172.7 cm; Wt 89.1 kg
[~2019-05-21 10:20] MED LIST changes: +NS IV 1000 ML 1,000 ML ONE; -OMEP20CA12 PO; +OMEP20CA13 PO; +PROM12.511 PO; -PROM12.59 PO; +THIAMINE INJECTION 100 MG, FOLIC ACID INJECTION 1 MG, VITAMIN MULTI INJECTION 10 ML, MA... IV NR
[2019-06-20] MEDS ORDERED: NS IV 1000 ML 1,000 ML IV SCH (11:00)
== END 2019-07-22 | disposition home or self-care (01) ==
LOC: SDC 10:20
PROVIDERS: ATTEND Family Medicine
DX: E87.6 Hypokalemia (principal); E86.9 Volume depletion, unspecified
CPT/HCPCS: 36415; 80048; 96360; 96361

== ENCOUNTER 2019-06-20 10:34 | Outpatient (RCR) | payer MEDICARE, OTHER ==
[2019-04-09] MEDS: CATHETER FLUSH 10 ML SYR IV PRN (10:35)
[2019-04-09] MEDS: diphenhydrAMINE 50 MG/ML INJ (BENADRYL) IV SCH (10:40)
[2019-04-09] MEDS: methylPREDNISolone 40 MG/ML (Solu-MEDROL) VIAL IV SCH (10:40)
[2019-04-09] MEDS: ACETAMINOPHEN 500 MG TAB (TYLENOL) PO SCH (10:40)
[2019-04-09] MEDS: NS IV 1000 ML 2,000 ML IV PRN ×2 (10:48→11:50)
[2019-04-09 11:02] VITALS: BP 135/76
[2019-04-09] MEDS: SODIUM CHLORIDE IV SCH ×2 (11:05)
[2019-04-09] MEDS: INFLIXIMAB DYYB IV SCH ×2 (11:05)
[2019-04-09 11:16] LABS: HEMOGLOBIN 12.2 G/DL (11.5-16.0); MEAN PLATELET VOLUME 10.3 FL (7.4-10.4); RED CELL DISTRIBUTION WIDTH 13.1 % (10.0-14.5); WHITE BLOOD COUNT 4.6 10^3/uL (4.3-11.0)
[2019-04-09 11:29] LABS: ALBUMIN 3.9 GM/DL (3.2-4.5); BILIRUBIN,TOTAL 0.4 MG/DL (0.1-1.0); CALCIUM 9.2 MG/DL (8.5-10.1); CREATININE SERUM 1.02 MG/DL (0.60-1.30); POTASSIUM 3.1 MMOL/L (3.6-5.0); TOTAL PROTEIN 6.9 GM/DL (6.4-8.2)
--- NOTE | 2019-04-09 13:05 | NUR ---
1305 INFUSION COMPLETED AT [address] NEEDLE [address] BANDAID. NO COMPLAINTS
[2019-05-21 10:15] VITALS: BP 143/81
[2019-05-21] MEDS: CATHETER FLUSH 10 ML SYR IV PRN (10:40)
[2019-05-21] MEDS: diphenhydrAMINE 50 MG/ML INJ (BENADRYL) IV SCH (10:49)
[2019-05-21] MEDS: ACETAMINOPHEN 500 MG TAB (TYLENOL) PO SCH (10:49)
[2019-05-21] MEDS: methylPREDNISolone 40 MG/ML (Solu-MEDROL) VIAL IV SCH (10:49)
[2019-05-21] MEDS: NS IV 1000 ML 2,000 ML IV PRN (10:50)
[2019-05-21 11:07] LABS: BASOPHILS % (AUTO) 1 % (0-10); EOSINOPHILS # (AUTO) 0.1 10^3/uL (0.0-0.3); EOSINOPHILS % (AUTO) 2 % (0-10); HEMATOCRIT 40 % (35-52); HEMOGLOBIN 12.7 G/DL (11.5-16.0); LYMPHOCYTES % (AUTO) 18 % (12-44); MEAN CORPUSCULAR HEMOGLOBIN 29 PG (25-34); MEAN CORPUSCULAR HGB CONC 32 G/DL (32-36); MEAN CORPUSCULAR VOLUME 91 FL (80-99); MEAN PLATELET VOLUME 10.2 FL (7.4-10.4); MONOCYTES # (AUTO) 0.3 X 10^3 (0.0-1.0); MONOCYTES % (AUTO) 5 % (0-12); NEUTROPHILS # (AUTO) 4.1 X 10^3 (1.8-7.8); NEUTROPHILS % (AUTO) 75 % (42-75); PLATELET COUNT 219 10^3/uL (130-400); RED CELL DISTRIBUTION WIDTH 13.4 % (10.0-14.5); WHITE BLOOD COUNT 5.5 10^3/uL (4.3-11.0)
[2019-05-21] MEDS: INFLIXIMAB DYYB IV SCH ×2 (11:10)
[2019-05-21] MEDS: SODIUM CHLORIDE IV SCH ×2 (11:10)
[2019-05-21 11:32] LABS: ALBUMIN 3.8 GM/DL (3.2-4.5); BILIRUBIN,TOTAL 0.6 MG/DL (0.1-1.0); CALCIUM 9.7 MG/DL (8.5-10.1); CREATININE SERUM 1.17 MG/DL (0.60-1.30); POTASSIUM 3.1 MMOL/L (3.6-5.0); TOTAL PROTEIN 7.8 GM/DL (6.4-8.2)
[2019-05-21 11:40] VITALS: BP 157/85
[2019-05-21 12:10] VITALS: BP 170/86
[2019-05-21 12:40] VITALS: BP 173/85
[2019-05-21 13:10] VITALS: BP 157/86
[2019-05-21 13:40] VITALS: BP 157/86
[2019-06-07 11:30] VITALS: BP 180/86
[2019-06-07] MEDS: NS IV 1000 ML 2,000 ML IV PRN (11:45)
[~2019-06-20] VITALS: Ht 172.7 cm; Wt 89.1 kg
[~2019-06-20 10:34] MED LIST changes: -NS IV 1000 ML 1,000 ML ONE; -THIAMINE INJECTION 100 MG, FOLIC ACID INJECTION 1 MG, VITAMIN MULTI INJECTION 10 ML, MA... IV NR
[2019-06-20] MEDS: NS IV 1000 ML 2,000 ML IV PRN (10:45)
[2019-06-20 12:55] VITALS: BP 116/70
== END 2019-07-08 | disposition home or self-care (01) ==
LOC: SDC 10:34
PROVIDERS: ATTEND Family Medicine
DX: E86.0 Dehydration (principal); K91.1 Postgastric surgery syndromes
CPT/HCPCS: 36415; 80053; 85025; 85027; 96360; 96361; 96365; 96366; 96374; 96375; Q5102

== ENCOUNTER 2019-08-15 10:51 | Outpatient (CLI) | payer MEDICARE, OTHER ==
[2019-08-15 11:00] VITALS: BP 140/86
[2019-08-15] MEDS ORDERED: NS IV 1000 ML 1,000 ML ONE (11:11)
[2019-08-15 15:10] VITALS: BP 140/86
== END 2019-08-15 15:10 | disposition home or self-care (01) ==
LOC: SDC 10:51
PROVIDERS: ATTEND Internal Medicine Gastroenterology
DX: K50.90 Crohn's disease, unspecified, without complications (principal); R19.5 Other fecal abnormalities; R19.8 Other specified symptoms and signs involving the digestive system and abdomen; R07.9 Chest pain, unspecified; R79.9 Abnormal finding of blood chemistry, unspecified
CPT/HCPCS: 36415; 82941; 83880; 85652; 86141

== ENCOUNTER → 2019-08-16 | Outpatient (CLI) | payer MEDICARE, OTHER ==
[~2019-08-16] MED LIST changes: -ARIP5TAB20 PO; +ARIP5TAB57 PO; +OMEP-280 PO; -OMEP20CA13 PO; +TRM50T PO
--- NOTE | 2019-08-16 10:49 | Diagnostic Imaging Report ---
EXAMINATION: US Thyroid. TECHNIQUE: Multiple real-time grayscale images were obtained of the thyroid in various projections. HISTORY: NON-TOXIC GOITER FINDINGS: No comparison available. The right lobe of the thyroid measures 3.2 x 1.2 x 1.4 cm. The left lobe of the thyroid measures 3.7 x 1.2 x 1.6 cm. The isthmus measures 4 mm. The size and echogenicity of the thyroid is normal. There are no nodules. IMPRESSION: 1. Normal thyroid gland. TIRADS categories: TIRADS 1: Benign No FNA or follow-up required TIRADS 2: Not Suspicious No FNA or follow-up required TIRADS 3: Mildly Suspicious FNA if ? 2.5 cm Follow if ? 1.5 cm (At 1, 3 and 5 years from initial scan) TIRADS 4: Moderately Suspicious FNA if ? 1.5 cm Follow if ? 1 cm (At 1, 2, 3 and 5 years from initial scan) TIRADS 5: Highly Suspicious FNA if ? 1 cm Follow if ? 0.5 cm (Annually for 5 years from initial scan) Dictated by: Dictated on workstation # [id number]
== END ==
LOC: RAD 10:18
PROVIDERS: ATTEND Internal Medicine Gastroenterology
DX: K50.90 Crohn's disease, unspecified, without complications (principal); E04.9 Nontoxic goiter, unspecified; E03.9 Hypothyroidism, unspecified; R19.8 Other specified symptoms and signs involving the digestive system and abdomen; R79.9 Abnormal finding of blood chemistry, unspecified; R07.9 Chest pain, unspecified; R19.7 Diarrhea, unspecified; R19.5 Other fecal abnormalities
CPT/HCPCS: 36415; 76536; 82710; 89055

== ENCOUNTER 2019-09-12 09:45 | Outpatient (RCR) | payer MEDICARE, OTHER ==
[2019-07-02] MEDS: NS IV 1000 ML 2,000 ML IV PRN (11:20)
[2019-07-02 11:52] LABS: BASOPHILS % (AUTO) 0 % (0-10); EOSINOPHILS # (AUTO) 0.1 10^3/uL (0.0-0.3); EOSINOPHILS % (AUTO) 2 % (0-10); HEMATOCRIT 41 % (35-52); HEMOGLOBIN 13.1 G/DL (11.5-16.0); LYMPHOCYTES % (AUTO) 20 % (12-44); MEAN CORPUSCULAR HEMOGLOBIN 29 PG (25-34); MEAN CORPUSCULAR HGB CONC 32 G/DL (32-36); MEAN CORPUSCULAR VOLUME 91 FL (80-99); MEAN PLATELET VOLUME 10.9 FL (7.4-10.4); MONOCYTES # (AUTO) 0.5 X 10^3 (0.0-1.0); MONOCYTES % (AUTO) 9 % (0-12); NEUTROPHILS # (AUTO) 3.4 X 10^3 (1.8-7.8); NEUTROPHILS % (AUTO) 69 % (42-75); PLATELET COUNT 232 10^3/uL (130-400); RED CELL DISTRIBUTION WIDTH 13.4 % (10.0-14.5)
[2019-07-02 12:04] LABS: BILIRUBIN,TOTAL 0.5 MG/DL (0.1-1.0); CREATININE SERUM 1.42 MG/DL (0.60-1.30); POTASSIUM 3.6 MMOL/L (3.6-5.0); TOTAL PROTEIN 7.3 GM/DL (6.4-8.2)
[2019-07-02 14:16] VITALS: BP 130/81
[2019-07-30 10:10] VITALS: BP 156/79
[2019-07-30] MEDS: NS IV 1000 ML 2,000 ML IV PRN ×2 (10:31→11:30)
[~2019-09-12 09:45] MED LIST changes: +ACETAMINOPHEN 500 MG TAB (TYLENOL) PO SCH; +ARIP5TAB20 PO; -ARIP5TAB57 PO; +CATHETER FLUSH 10 ML SYR IV PRN; +INFLIXIMAB DYYB IV SCH; -OMEP-280 PO; +OMEP20CA13 PO; +SODIUM CHLORIDE IV SCH; -TRM50T PO; +diphenhydrAMINE 50 MG/ML INJ (BENADRYL) IV SCH; +methylPREDNISolone 40 MG/ML (Solu-MEDROL) VIAL IV SCH
[2019-09-19] MEDS ORDERED: SODIUM CHLORIDE IV SCH ×2 (10:15)
[2019-09-19] MEDS ORDERED: INFLIXIMAB DYYB IV SCH ×2 (10:15)
[2019-09-19] MEDS ORDERED: methylPREDNISolone 40 MG/ML (Solu-MEDROL) VIAL IV SCH (10:15)
[2019-09-19] MEDS ORDERED: diphenhydrAMINE 50 MG/ML INJ (BENADRYL) IV SCH (10:15)
[2019-09-19] MEDS ORDERED: ACETAMINOPHEN 500 MG TAB (TYLENOL) PO SCH (10:15)
== END 2019-09-30 | disposition home or self-care (01) ==
LOC: SDC 09:45
PROVIDERS: ATTEND Family Medicine
DX: K50.90 Crohn's disease, unspecified, without complications (principal); E86.0 Dehydration; K91.1 Postgastric surgery syndromes
CPT/HCPCS: 36415; 80053; 85025; 96360; 96361; 96365; 96374; 96375; Q5102

== ENCOUNTER 2019-09-19 09:55 | Outpatient (RCR) | payer MEDICARE, OTHER ==
[2019-08-15 10:47] VITALS: BP 140/86
[2019-08-15] MEDS: NS IV 1000 ML 1,000 ML IV SCH ×2 (11:36→12:35)
[2019-08-15 11:48] LABS: MEAN PLATELET VOLUME 10.3 FL (7.4-10.4); RED CELL DISTRIBUTION WIDTH 13.8 % (10.0-14.5); WHITE BLOOD COUNT 5.2 10^3/uL (4.3-11.0)
[2019-08-15] MEDS: diphenhydrAMINE 50 MG/ML INJ (BENADRYL) IV SCH (11:54)
[2019-08-15] MEDS: methylPREDNISolone 40 MG/ML (Solu-MEDROL) VIAL IV SCH (11:54)
[2019-08-15] MEDS: ACETAMINOPHEN 500 MG TAB (TYLENOL) PO SCH (11:55)
[2019-08-15] MEDS: SODIUM CHLORIDE IV SCH ×2 (11:58)
[2019-08-15] MEDS: INFLIXIMAB DYYB IV SCH ×2 (11:58)
[2019-08-15 12:16] LABS: ALANINE AMINOTRANSFERASE 30 U/L (0-55); ALBUMIN 3.8 GM/DL (3.2-4.5); ALKALINE PHOSPHATASE 61 U/L (40-136); BILIRUBIN,TOTAL 0.5 MG/DL (0.1-1.0); BUN/CREATININE RATIO 21; CALCIUM 9.5 MG/DL (8.5-10.1); CARBON DIOXIDE 23 MMOL/L (21-32); CHLORIDE 110 MMOL/L (98-107); GFR ESTIMATED > 60; GLUCOSE 96 MG/DL (70-105); POTASSIUM 3.4 MMOL/L (3.6-5.0); SODIUM 144 MMOL/L (135-145); TOTAL PROTEIN 6.9 GM/DL (6.4-8.2)
--- NOTE | 2019-08-15 15:10 | NUR ---
PATIENT'S INFUSION COMPLETED, DISCHARGED FROM [facility] [place] AT THIS TIME.
[2019-09-12 09:45] VITALS: BP 140/94
[2019-09-19 09:55] VITALS: BP 119/78
[~2019-09-19 09:55] MED LIST changes: -ACETAMINOPHEN 500 MG TAB (TYLENOL) PO SCH; -INFLIXIMAB DYYB IV SCH; +NS IV 1000 ML 2,000 ML IV PRN; +NS IV 1000 ML 2,000 ML ONE; -SODIUM CHLORIDE IV SCH; -diphenhydrAMINE 50 MG/ML INJ (BENADRYL) IV SCH; -methylPREDNISolone 40 MG/ML (Solu-MEDROL) VIAL IV SCH
[2019-09-19] MEDS: methylPREDNISolone 40 MG/ML (Solu-MEDROL) VIAL IV SCH (10:25)
[2019-09-19] MEDS: diphenhydrAMINE 50 MG/ML INJ (BENADRYL) IV SCH (10:27)
[2019-09-19] MEDS: ACETAMINOPHEN 500 MG TAB (TYLENOL) PO SCH (10:28)
[2019-09-19 10:47] LABS: HEMOGLOBIN 12.8 G/DL (11.5-16.0); MEAN PLATELET VOLUME 10.7 FL (7.4-10.4); RED CELL DISTRIBUTION WIDTH 13.1 % (10.0-14.5); WHITE BLOOD COUNT 5.2 10^3/uL (4.3-11.0)
[2019-09-19] MEDS: SODIUM CHLORIDE IV SCH ×2 (10:57)
[2019-09-19] MEDS: INFLIXIMAB DYYB IV SCH ×2 (10:57)
[2019-09-19 11:18] LABS: BILIRUBIN,TOTAL 0.5 MG/DL (0.1-1.0); CALCIUM 9.3 MG/DL (8.5-10.1); CREATININE SERUM 1.13 MG/DL (0.60-1.30); TOTAL PROTEIN 7.1 GM/DL (6.4-8.2)
[2019-09-19 11:30] VITALS: BP 159/83
[2019-09-19 12:00] VITALS: BP 156/83
[2019-09-19 12:30] VITALS: BP 150/93
[2019-09-19 13:00] VITALS: BP 149/76
--- NOTE | 2019-09-19 13:52 | NUR ---
DR CARDENAS NOTIFIED OF POTASSIUM LEVEL. PT REPORTS SHE HAS STOPPED TAKING POTASSIUM SUPPLEMENT ET SHE WILL RESTART IT TONIGHT.
== END 2019-09-19 14:26 | disposition home or self-care (01) ==
LOC: SDC 09:55
PROVIDERS: ATTEND Family Medicine
DX: K50.90 Crohn's disease, unspecified, without complications (principal)
CPT/HCPCS: 36415; 80053; 85027; 96360; 96361; 96365; 96366; 96375; Q5102

== ENCOUNTER 2019-12-25 10:10 | Outpatient (RCR) | payer MEDICARE, OTHER ==
[2019-10-05 11:20] VITALS: BP 135/79
[2019-10-05] MEDS: NS IV 1000 ML 1,000 ML IV SCH ×2 (12:20→13:25)
[2019-10-12 10:45] VITALS: BP 138/98
[2019-10-24] MEDS: ACETAMINOPHEN 500 MG TAB (TYLENOL) PO SCH (10:58)
[2019-10-24] MEDS: diphenhydrAMINE 50 MG/ML INJ (BENADRYL) IV SCH (10:59)
[2019-10-24] MEDS: methylPREDNISolone 40 MG/ML (Solu-MEDROL) VIAL IV SCH (11:00)
[2019-10-24] MEDS: SODIUM CHLORIDE IV SCH ×2 (11:15)
[2019-10-24] MEDS: INFLIXIMAB DYYB IV SCH ×2 (11:15)
[2019-10-24 14:10] VITALS: BP 140/78
[2019-10-24 15:16] LABS: BASOPHILS % (AUTO) 1 % (0-10); EOSINOPHILS # (AUTO) 0.2 10^3/uL (0.0-0.3); EOSINOPHILS % (AUTO) 4 % (0-10); HEMATOCRIT 38 % (35-52); HEMOGLOBIN 11.9 G/DL (11.5-16.0); LYMPHOCYTES % (AUTO) 19 % (12-44); MEAN CORPUSCULAR HEMOGLOBIN 29 PG (25-34); MEAN CORPUSCULAR HGB CONC 31 G/DL (32-36); MEAN CORPUSCULAR VOLUME 92 FL (80-99); MEAN PLATELET VOLUME 10.5 FL (7.4-10.4); MONOCYTES # (AUTO) 0.3 X 10^3 (0.0-1.0); MONOCYTES % (AUTO) 6 % (0-12); NEUTROPHILS # (AUTO) 3.8 X 10^3 (1.8-7.8); NEUTROPHILS % (AUTO) 71 % (42-75); PLATELET COUNT 202 10^3/uL (130-400); RED CELL DISTRIBUTION WIDTH 13.1 % (10.0-14.5); WHITE BLOOD COUNT 5.3 10^3/uL (4.3-11.0)
[2019-10-24 15:30] LABS: ALBUMIN 3.6 GM/DL (3.2-4.5); BILIRUBIN,TOTAL 0.3 MG/DL (0.1-1.0); CALCIUM 8.4 MG/DL (8.5-10.1); CREATININE SERUM 1.1 MG/DL (0.60-1.30); POTASSIUM 3.6 MMOL/L (3.6-5.0); TOTAL PROTEIN 6.5 GM/DL (6.4-8.2)
[2019-11-27 11:00] VITALS: BP 147/93
[2019-11-27] MEDS: ACETAMINOPHEN 500 MG TAB (TYLENOL) PO SCH (11:16)
[2019-11-27] MEDS: methylPREDNISolone 40 MG/ML (Solu-MEDROL) VIAL IV SCH (11:16)
[2019-11-27 11:17] LABS: MEAN PLATELET VOLUME 10.6 FL (7.4-10.4); RED CELL DISTRIBUTION WIDTH 12.9 % (10.0-14.5); WHITE BLOOD COUNT 6.3 10^3/uL (4.3-11.0)
[2019-11-27] MEDS: diphenhydrAMINE 50 MG/ML INJ (BENADRYL) IV SCH (11:17)
[2019-11-27] MEDS: INFLIXIMAB DYYB IV SCH ×2 (11:32)
[2019-11-27] MEDS: SODIUM CHLORIDE IV SCH ×2 (11:32)
[2019-11-27 11:40] LABS: ALBUMIN 3.8 GM/DL (3.2-4.5); BILIRUBIN,TOTAL 0.3 MG/DL (0.1-1.0); CALCIUM 9.8 MG/DL (8.5-10.1); CREATININE SERUM 1.12 MG/DL (0.60-1.30)
[~2019-12-25] VITALS: Ht 172.7 cm; Wt 78.0 kg
[~2019-12-25 10:10] MED LIST changes: +ACETAMINOPHEN 500 MG TAB (TYLENOL) PO PRN; -ARIP5TAB20 PO; +ARIP5TAB57 PO; -CATHETER FLUSH 10 ML SYR IV PRN; +EPINEPHrine INJECTION 1 MG/ML AMP SC PRN; +FOLIC ACID IV SCH; +NS IV 1000 ML 1,000 ML IV SCH; +NS IV 1000 ML 1,000 ML ONE; -NS IV 1000 ML 2,000 ML IV PRN; -OMEP20CA13 PO; +OMEP20CA18 PO; +THIAMINE IV SCH; +TRM50T PO; +VITAMIN MULTI IV SCH; +[UNRECOGNIZED DRUG - OTHER] IV SCH; +diphenhydrAMINE 50 MG/ML INJ (BENADRYL) IV PRN
== END 2020-01-03 | disposition home or self-care (01) ==
LOC: SDC 10:10
PROVIDERS: ATTEND Family Medicine
DX: K50.90 Crohn's disease, unspecified, without complications (principal); E86.0 Dehydration; K91.1 Postgastric surgery syndromes
CPT/HCPCS: 36415; 80053; 85025; 85027; 96360; 96361; 96365; 96366; Q5102

== ENCOUNTER 2019-12-27 09:49 | Outpatient (CLI) | payer MEDICARE, OTHER ==
[~2019-12-27] VITALS: Ht 165 cm; Wt 78.0 kg
[~2019-12-27 09:49] MED LIST changes: -ACETAMINOPHEN 500 MG TAB (TYLENOL) PO PRN; -EPINEPHrine INJECTION 1 MG/ML AMP SC PRN; -FOLIC ACID IV SCH; -NS IV 1000 ML 1,000 ML IV SCH; -NS IV 1000 ML 1,000 ML ONE; -NS IV 1000 ML 2,000 ML ONE; -THIAMINE IV SCH; -VITAMIN MULTI IV SCH; -[UNRECOGNIZED DRUG - OTHER] IV SCH; -diphenhydrAMINE 50 MG/ML INJ (BENADRYL) IV PRN
[2019-12-27] MEDS ORDERED: POTASSIUM CL 10MEQ/50ML IVPB 50 ML IV ONE (10:15)
[2019-12-27] MEDS ORDERED: POTASSIUM CL 10MEQ/50ML IVPB 100 ML IV ONE (10:26)
[2019-12-27] MEDS: POTASSIUM CL 10 MEQ/50 ML IVPB (PRE-MIX) IV SCH ×4 (10:37→13:39)
[2019-12-27 14:38] VITALS: BP 138/69
== END 2019-12-27 14:40 | disposition home or self-care (01) ==
LOC: SDC 09:49
PROVIDERS: ATTEND Nurse Practitioner Family
DX: E87.6 Hypokalemia (principal)

== ENCOUNTER → 2020-03-11 | Outpatient (CLI) | payer MEDICARE, OTHER ==
--- NOTE | 2020-03-11 13:52 | Diagnostic Imaging Report ---
Indication: Shortness of breath PA and lateral chest Heart size and pulmonary vascularity are normal. Lungs are clear. There are no effusions or pneumothoraces. Left subclavian Port-A-Cath tip projects over the SVC. IMPRESSION: Negative chest Dictated by: Dictated on workstation # [id number]
== END ==
LOC: RAD 13:26
PROVIDERS: ATTEND Family Medicine
DX: Z12.31 Encounter for screening mammogram for malignant neoplasm of breast (principal); R06.02 Shortness of breath; Z95.828 Presence of other vascular implants and grafts
CPT/HCPCS: 71046

== ENCOUNTER 2020-03-20 09:55 | Outpatient (RCR) | payer MEDICARE, OTHER ==
[2019-12-25 10:10] VITALS: BP 137/76
[2019-12-25] MEDS: ACETAMINOPHEN 500 MG TAB (TYLENOL) PO SCH (10:54)
[2019-12-25] MEDS: methylPREDNISolone 40 MG/ML (Solu-MEDROL) VIAL IV SCH (10:55)
[2019-12-25] MEDS: diphenhydrAMINE 50 MG/ML INJ (BENADRYL) IV SCH (10:58)
[2019-12-25] MEDS: INFLIXIMAB DYYB IV SCH ×2 (11:29)
[2019-12-25] MEDS: SODIUM CHLORIDE IV SCH ×2 (11:29)
[2019-12-25 13:27] LABS: BASOPHILS % (AUTO) 0 % (0-10); EOSINOPHILS # (AUTO) 0.2 10^3/uL (0.0-0.3); EOSINOPHILS % (AUTO) 4 % (0-10); HEMATOCRIT 40 % (35-52); HEMOGLOBIN 12.8 G/DL (11.5-16.0); LYMPHOCYTES # (AUTO) 1.3 X 10^3 (1.0-4.0); LYMPHOCYTES % (AUTO) 26 % (12-44); MEAN CORPUSCULAR HEMOGLOBIN 29 PG (25-34); MEAN CORPUSCULAR HGB CONC 32 G/DL (32-36); MEAN CORPUSCULAR VOLUME 91 FL (80-99); MEAN PLATELET VOLUME 10.5 FL (7.4-10.4); MONOCYTES # (AUTO) 0.3 X 10^3 (0.0-1.0); MONOCYTES % (AUTO) 7 % (0-12); NEUTROPHILS # (AUTO) 3.1 X 10^3 (1.8-7.8); NEUTROPHILS % (AUTO) 63 % (42-75); PLATELET COUNT 244 10^3/uL (130-400); RED CELL DISTRIBUTION WIDTH 13.4 % (10.0-14.5); WHITE BLOOD COUNT 4.9 10^3/uL (4.3-11.0)
[2019-12-25 13:38] LABS: ALBUMIN 3.9 GM/DL (3.2-4.5); BILIRUBIN,TOTAL 0.4 MG/DL (0.1-1.0); CALCIUM 9.3 MG/DL (8.5-10.1); CREATININE SERUM 1.1 MG/DL (0.60-1.30); POTASSIUM 2.9 MMOL/L (3.6-5.0); TOTAL PROTEIN 7.2 GM/DL (6.4-8.2)
[2020-01-22] MEDS: ACETAMINOPHEN 500 MG TAB (TYLENOL) PO SCH (10:46)
[2020-01-22] MEDS: diphenhydrAMINE 50 MG/ML INJ (BENADRYL) IV SCH (10:53)
[2020-01-22] MEDS: methylPREDNISolone 40 MG/ML (Solu-MEDROL) VIAL IV SCH (10:55)
[2020-01-22] MEDS: INFLIXIMAB DYYB IV SCH ×2 (11:12)
[2020-01-22] MEDS: SODIUM CHLORIDE IV SCH ×2 (11:12)
[2020-01-22 11:14] LABS: HEMOGLOBIN 12.6 G/DL (11.5-16.0); MEAN PLATELET VOLUME 10.5 FL (7.4-10.4); WHITE BLOOD COUNT 4.3 10^3/uL (4.3-11.0)
[2020-01-22 11:24] LABS: ALBUMIN 3.9 GM/DL (3.2-4.5); POTASSIUM 3.3 MMOL/L (3.6-5.0)
[2020-01-22 11:26] LABS: CALCIUM 9.4 MG/DL (8.5-10.1)
[2020-01-22 11:27] LABS: TOTAL PROTEIN 7.3 GM/DL (6.4-8.2)
[2020-01-22 11:29] LABS: BILIRUBIN,TOTAL 0.5 MG/DL (0.1-1.0)
[2020-01-22 11:30] LABS: CREATININE SERUM 1.28 MG/DL (0.60-1.30)
--- NOTE | 2020-01-22 12:15 | NUR ---
CBC AND CMP RESULTS FAXED TO DR CARDENAS'S OFFICE AND CALLED ERICKA CELAYA, AT DR CARDENAS'S OFFICE ABOUT ABNORMAL LAB RESULTS AND TO VERIFY RECEIPT OF FAX.
[2020-01-22 15:00] VITALS: BP 110/76
[2020-02-19 10:15] VITALS: BP 128/66
[2020-02-19 10:30] LABS: HEMOGLOBIN 12.6 G/DL (11.5-16.0); MEAN PLATELET VOLUME 10.3 FL (7.4-10.4); RED CELL DISTRIBUTION WIDTH 13.2 % (10.0-14.5); WHITE BLOOD COUNT 4.8 10^3/uL (4.3-11.0)
[2020-02-19] MEDS: methylPREDNISolone 40 MG/ML (Solu-MEDROL) VIAL IV SCH (10:31)
[2020-02-19] MEDS: ACETAMINOPHEN 500 MG TAB (TYLENOL) PO SCH (10:31)
[2020-02-19] MEDS: diphenhydrAMINE 50 MG/ML INJ (BENADRYL) IV SCH (10:31)
[2020-02-19] MEDS: SODIUM CHLORIDE IV SCH ×2 (10:42)
[2020-02-19] MEDS: INFLIXIMAB DYYB IV SCH ×2 (10:42)
[2020-02-19 10:43] LABS: ALBUMIN 3.8 GM/DL (3.2-4.5); POTASSIUM 3.1 MMOL/L (3.6-5.0)
[2020-02-19 10:44] LABS: CALCIUM 9.1 MG/DL (8.5-10.1)
[2020-02-19 10:45] LABS: TOTAL PROTEIN 6.9 GM/DL (6.4-8.2)
[2020-02-19 10:47] LABS: BILIRUBIN,TOTAL 0.5 MG/DL (0.1-1.0)
[2020-02-19 10:49] LABS: CREATININE SERUM 1.12 MG/DL (0.60-1.30)
[~2020-03-20] VITALS: Ht 170.2 cm; Wt 78.0 kg
[~2020-03-20 09:55] MED LIST changes: +ACETAMINOPHEN 500 MG TAB (TYLENOL) ONE; +ACETAMINOPHEN 500 MG TAB (TYLENOL) PO PRN; +CATHETER FLUSH 10 ML SYR IV PRN; +EPINEPHrine INJECTION 1 MG/ML AMP SC PRN; +diphenhydrAMINE 50 MG/ML INJ (BENADRYL) IV PRN; +diphenhydrAMINE 50 MG/ML INJ (BENADRYL) ONE; +methylPREDNISolone 40 MG/ML (Solu-MEDROL) VIAL ONE
[2020-03-20] MEDS ORDERED: diphenhydrAMINE 50 MG/ML INJ (BENADRYL) ONE (10:08)
[2020-03-20] MEDS ORDERED: methylPREDNISolone 40 MG/ML (Solu-MEDROL) VIAL ONE (10:08)
[2020-03-20] MEDS ORDERED: ACETAMINOPHEN 500 MG TAB (TYLENOL) ONE (10:08)
[2020-03-20] MEDS: ACETAMINOPHEN 500 MG TAB (TYLENOL) PO SCH (10:13)
[2020-03-20] MEDS: methylPREDNISolone 40 MG/ML (Solu-MEDROL) VIAL IV SCH (10:26)
[2020-03-20] MEDS: diphenhydrAMINE 50 MG/ML INJ (BENADRYL) IV SCH (10:30)
[2020-03-20] MEDS: INFLIXIMAB DYYB IV SCH ×2 (10:46)
[2020-03-20] MEDS: SODIUM CHLORIDE IV SCH ×2 (10:46)
--- NOTE | 2020-03-20 12:00 | NUR ---
1200: PT'S INFUSION HAD STARTED AT 10 ML/HR AND HAS BEEN TITRATED UP ORDERED. INFUSION RATE IS CURRENTLY RUNNING AT 150 ML/HR. PT UP TO BATHROOM AND C/O OF SEVERE LOWER BACK "MUSCLE CRAMPING". PT GIVEN WARM BLANKET AND REPOSITIONED IN RECLINER. 1230: PT CONTINUES TO C/O OF SEVERE CRAMPING PAIN TO LOWER BACK RATES PAIN /10, INFUSION RATE DECREASED TO 80 ML/HR, WILL CONTINUE TO MONITOR. 1250: PT CONTINUES TO REPORT MINIMAL RELIEF POST INFUSION RATE DECREASE. PT RATING "CRAMPING" PAIN TO LOWER BACK 04/25. DR. CARDENAS'S OFFICE CALLED AND REPORTED PT STATUS TO DR. CARDENAS. NEW ORDERS RECEIVED FROM DR. CARDENAS.
[2020-03-20 12:56] LABS: BASOPHILS % (AUTO) 1 % (0-10); EOSINOPHILS # (AUTO) 0.1 10^3/uL (0.0-0.3); EOSINOPHILS % (AUTO) 2 % (0-10); HEMATOCRIT 40 % (35-52); HEMOGLOBIN 13.4 G/DL (11.5-16.0); LYMPHOCYTES # (AUTO) 1.3 X 10^3 (1.0-4.0); LYMPHOCYTES % (AUTO) 22 % (12-44); MEAN CORPUSCULAR HEMOGLOBIN 29 PG (25-34); MEAN CORPUSCULAR HGB CONC 33 G/DL (32-36); MEAN CORPUSCULAR VOLUME 88 FL (80-99); MEAN PLATELET VOLUME 10.6 FL (7.4-10.4); MONOCYTES # (AUTO) 0.4 X 10^3 (0.0-1.0); MONOCYTES % (AUTO) 6 % (0-12); NEUTROPHILS # (AUTO) 4.4 X 10^3 (1.8-7.8); NEUTROPHILS % (AUTO) 70 % (42-75); PLATELET COUNT 275 10^3/uL (130-400); RED CELL DISTRIBUTION WIDTH 13.5 % (10.0-14.5); WHITE BLOOD COUNT 6.2 10^3/uL (4.3-11.0)
[2020-03-20] MEDS ORDERED: fentaNYL INJECTION 100 MCG/2 ML AMP IVP ONE (13:00)
[2020-03-20] MEDS ORDERED: fentaNYL INJECTION 100 MCG/2 ML AMP ONE (13:00)
[2020-03-20] MEDS ORDERED: CYCLOBENZAPRINE 10 MG (FLEXERIL) TAB PO NR (13:00)
--- NOTE | 2020-03-20 13:10 | NUR ---
PT IS DRIVING HERSELF TODAY AND DENIES HAVING A RIDE HOME. PT OK WITH OMITTING FENTANYL AT THIS TIME AND WILL SEE HOW FLEXERIL WORKS FOR LOWER BACK PAIN.
[2020-03-20 13:11] LABS: ALBUMIN 3.8 GM/DL (3.2-4.5); BILIRUBIN,TOTAL 0.5 MG/DL (0.1-1.0); CALCIUM 9.3 MG/DL (8.5-10.1); CREATININE SERUM 1.01 MG/DL (0.60-1.30); MAGNESIUM 1.7 MG/DL (1.6-2.4); TOTAL PROTEIN 7.3 GM/DL (6.4-8.2)
[2020-03-20 13:32] LABS: EOSINOPHILS % (MANUAL) 2 %; LYMPHOCYTES % (MANUAL) 22 %; MONOCYTES % (MANUAL) 9 %; NEUTROPHILS % (MANUAL) 67 %
[2020-03-20 13:33] LABS: RBC MORPH NORMAL
--- NOTE | 2020-03-20 13:45 | NUR ---
PT REPORTS THAT LOW BACK PAIN HAS RESOLVED, RATES PAIN 0/10. WILL CONTINUE TO MONITOR. INFUSION RATE INCREASED TO 80ML/HR.
--- NOTE | 2020-03-20 14:00 | NUR ---
PT DENIES PAIN, WILL INFUSION RATE INCREASED TO 100ML/HR.
--- NOTE | 2020-03-20 14:10 | NUR ---
PT CONTINUES TO DENY ANY PAIN INFUSION RATE INCREASED TO 120 ML/HR,
--- NOTE | 2020-03-20 14:25 | NUR ---
PT DENIES NEEDS OR C/O, INFUSION RATE INCREASED TO 140 ML/HR.
[2020-03-20 15:00] VITALS: BP 165/95
== END 2020-03-24 | disposition home or self-care (01) ==
LOC: SDC 09:55
PROVIDERS: ATTEND Family Medicine
DX: K50.90 Crohn's disease, unspecified, without complications (principal); K31.89 Other diseases of stomach and duodenum; E86.0 Dehydration
CPT/HCPCS: 36415; 36591; 80053; 83735; 85007; 85025; 85027; 96365; 96366; 96374; 96375; Q5102

== ENCOUNTER → 2020-04-21 | Outpatient (CLI) | payer MEDICARE, OTHER ==
[2019-12-25 10:10] VITALS: BP 137/76
[~2020-04-21] MED LIST changes: -ACETAMINOPHEN 500 MG TAB (TYLENOL) ONE; -ACETAMINOPHEN 500 MG TAB (TYLENOL) PO PRN; -CATHETER FLUSH 10 ML SYR IV PRN; -EPINEPHrine INJECTION 1 MG/ML AMP SC PRN; -diphenhydrAMINE 50 MG/ML INJ (BENADRYL) IV PRN; -diphenhydrAMINE 50 MG/ML INJ (BENADRYL) ONE; -methylPREDNISolone 40 MG/ML (Solu-MEDROL) VIAL ONE
== END ==
LOC: SDC 13:15
PROVIDERS: ATTEND Family Medicine
DX: K50.90 Crohn's disease, unspecified, without complications (principal)

== ENCOUNTER 2020-07-11 10:39 | Outpatient (RCR) | payer MEDICARE, OTHER ==
[2020-04-22] VITALS (10 sets, daily range): BP systolic 135–176; BP diastolic 78–97
[2020-04-22 08:57] LABS: MEAN PLATELET VOLUME 9.8 FL (7.4-10.4); WHITE BLOOD COUNT 5.9 10^3/uL (4.3-11.0)
[2020-04-22] MEDS: ACETAMINOPHEN 500 MG TAB (TYLENOL) PO SCH (09:01)
[2020-04-22] MEDS: methylPREDNISolone 40 MG/ML (Solu-MEDROL) VIAL IV SCH (09:02)
[2020-04-22] MEDS: diphenhydrAMINE 50 MG/ML INJ (BENADRYL) IV SCH (09:02)
[2020-04-22 09:15] LABS: ALBUMIN 3.7 GM/DL (3.2-4.5); BILIRUBIN,TOTAL 0.4 MG/DL (0.1-1.0); CALCIUM 9.3 MG/DL (8.5-10.1); CREATININE SERUM 1.11 MG/DL (0.60-1.30); POTASSIUM 3.3 MMOL/L (3.6-5.0)
[2020-04-22] MEDS: INFLIXIMAB DYYB IV SCH ×2 (09:22)
[2020-04-22] MEDS: SODIUM CHLORIDE IV SCH ×2 (09:22)
--- NOTE | 2020-04-22 09:22 | NUR ---
INFLECTRA STARTED AT 20 CC/HR PER PUMP. 0940: INFLECTRA INCREASED 40 CC/HR. 0955: INFLECTRA INCREASED TO 80 CC/HR. 1010: PATIENT ASKED TO TURN THE INFLECTRA TO 90 CC/HR AND LEAVE IT AT THAT RATE.
[2020-05-20 09:48] VITALS: BP 149/77
[2020-05-20] MEDS: ACETAMINOPHEN 500 MG TAB (TYLENOL) PO SCH (09:58)
[2020-05-20] MEDS: methylPREDNISolone 40 MG/ML (Solu-MEDROL) VIAL IV SCH (10:09)
[2020-05-20] MEDS: diphenhydrAMINE 50 MG/ML INJ (BENADRYL) IV SCH (10:12)
[2020-05-20 10:19] LABS: HEMOGLOBIN 13.4 G/DL (11.5-16.0); WHITE BLOOD COUNT 6.5 10^3/uL (4.3-11.0)
[2020-05-20 10:37] LABS: ALBUMIN 3.7 GM/DL (3.2-4.5); BILIRUBIN,TOTAL 0.6 MG/DL (0.1-1.0); CALCIUM 9.2 MG/DL (8.5-10.1); CREATININE SERUM 1.08 MG/DL (0.60-1.30); POTASSIUM 3.1 MMOL/L (3.6-5.0)
[2020-05-20] MEDS: INFLIXIMAB DYYB IV SCH ×2 (10:51)
[2020-05-20] MEDS: SODIUM CHLORIDE IV SCH ×2 (10:51)
[2020-05-20 11:20] VITALS: BP 149/89
[2020-05-20 11:50] VITALS: BP 168/93
[2020-05-20 12:20] VITALS: BP 181/93
[2020-05-20 12:50] VITALS: BP 166/91
[2020-05-20 13:20] VITALS: BP 165/85
[2020-06-25 13:40] VITALS: BP 150/72
[2020-06-25] MEDS: NS IV 1000 ML 1,000 ML IV SCH ×2 (14:07→15:00)
[2020-07-02 10:50] VITALS: BP 115/69
[2020-07-02] MEDS: NS IV 1000 ML 2,000 ML IV PRN (11:14)
[~2020-07-11 10:39] MED LIST changes: -ALPR0.254 PO; +CATHETER FLUSH 10 ML SYR IV PRN; +NS IV 1000 ML 2,000 ML ONE
[2020-07-11 10:45] VITALS: BP 168/92
[2020-07-11] MEDS: NS IV 1000 ML 2,000 ML IV PRN (10:46)
== END 2020-07-21 | disposition home or self-care (01) ==
LOC: SDC 10:39
PROVIDERS: ATTEND Family Medicine
DX: K91.1 Postgastric surgery syndromes (principal); E86.0 Dehydration
CPT/HCPCS: 36415; 80053; 85027; 96360; 96361; 96365; 96366; 96374; 96375; Q5102

== ENCOUNTER → 2020-07-22 | Outpatient (CLI) | payer MEDICARE, OTHER ==
[~2020-07-22] MED LIST changes: -CATHETER FLUSH 10 ML SYR IV PRN; -NS IV 1000 ML 2,000 ML ONE
--- NOTE | 2020-07-22 16:34 | Diagnostic Imaging Report ---
INDICATION: Routine screening. COMPARISON: 02/19/2008. TECHNIQUE: 2D and 3D bilateral screening mammography was performed with CAD. FINDINGS: Scattered fibroglandular densities are identified bilaterally. A fibronodular parenchymal pattern is again noted. There are numerous circumscribed nodules in both breasts which appear benign. No spiculated mass or malignant appearing microcalcifications are seen. The axillae are unremarkable. IMPRESSION: No mammographic features suspicious for malignancy are identified. ACR BI-RADS Category 2: Benign findings. Result letter will be mailed to the patient. Note: At least 10% of breast cancer is not imaged by mammography. Dictated by: Dictated on workstation # [id number]
== END ==
LOC: RAD 14:30
PROVIDERS: ATTEND Family Medicine
DX: Z12.31 Encounter for screening mammogram for malignant neoplasm of breast (principal)
CPT/HCPCS: 77063; 77067

== ENCOUNTER 2020-08-20 12:45 | Outpatient (RCR) | payer MEDICARE, OTHER ==
[~2020-08-20] VITALS: Ht 167 cm; Wt 90.0 kg
[~2020-08-20 12:45] MED LIST changes: -ESCI20TA45 PO; +ESCI20TA56 PO
[2020-08-20 12:50] VITALS: BP 130/70
[2020-08-20] MEDS ORDERED: NS IV 1000 ML 2,000 ML ONE (13:01)
[2020-08-20] MEDS ORDERED: NS IV 1000 ML 2,000 ML IV SCH (13:15)
== END 2020-11-18 | disposition home or self-care (01) ==
LOC: SDC 12:45
PROVIDERS: ATTEND Family Medicine
DX: K91.1 Postgastric surgery syndromes (principal); E86.0 Dehydration
CPT/HCPCS: 96360; 96361

== ENCOUNTER → 2020-11-17 | Outpatient (CLI) | payer MEDICARE, OTHER ==
[2020-11-17 13:34] LABS: BASOPHILS % (AUTO) 1 % (0-10); EOSINOPHILS # (AUTO) 0.2 10^3/uL (0.0-0.3); EOSINOPHILS % (AUTO) 3 % (0-10); HEMATOCRIT 39 % (35-52); HEMOGLOBIN 12.2 g/dL (11.5-16.0); LYMPHOCYTES # (AUTO) 1.3 10^3/uL (1.0-4.0); LYMPHOCYTES % (AUTO) 20 % (12-44); MEAN CORPUSCULAR HEMOGLOBIN 30 pg (25-34); MEAN CORPUSCULAR HGB CONC 32 g/dL (32-36); MEAN CORPUSCULAR VOLUME 95 fL (80-99); MEAN PLATELET VOLUME 10.4 fL (9.0-12.2); MONOCYTES # (AUTO) 0.5 10^3/uL (0.0-1.0); MONOCYTES % (AUTO) 8 % (0-12); NEUTROPHILS # (AUTO) 4.2 10^3/uL (1.8-7.8); NEUTROPHILS % (AUTO) 68 % (42-75); PLATELET COUNT 206 10^3/uL (130-400); WHITE BLOOD COUNT 6.1 10^3/uL (4.3-11.0)
[2020-11-17 13:50] LABS: ALBUMIN 3.6 GM/DL (3.2-4.5); BILIRUBIN,TOTAL 0.4 MG/DL (0.1-1.0); CALCIUM 9.2 MG/DL (8.5-10.1); CREATININE SERUM 1.17 MG/DL (0.60-1.30); MAGNESIUM 1.5 MG/DL (1.6-2.4); POTASSIUM 3.9 MMOL/L (3.6-5.0); TOTAL PROTEIN 6.7 GM/DL (6.4-8.2)
== END ==
LOC: SDC 12:51
PROVIDERS: ATTEND Family Medicine
DX: I10 Essential (primary) hypertension (principal)
CPT/HCPCS: 36415; 80053; 83735; 84443; 85025

== ENCOUNTER → 2020-12-10 | Outpatient (CLI) | payer MEDICARE, OTHER ==
[~2020-12-10] MED LIST changes: +CATHETER FLUSH 10 ML SYR IV PRN; +ESCI20TA39 PO; -ESCI20TA56 PO; +HOLD METFORMIN - RECEIVED CONTRAST 20 ML VIAL IV SCH; +IOHEXOL 350 MG/ML 100 ML (OMNIPAQUE 350) VIAL IV ONE; +NS 100 ML (IVPB) BAG IV ONE; +RT-ALBUTEROL SULF 2.5 MG/3 ML PRE-MIX VIAL INH ONE
--- NOTE | 2020-12-10 14:25 | Diagnostic Imaging Report ---
EXAMINATION: CT Chest with intravenous contrast. TECHNIQUE: Multiple contiguous axial images were obtained through the chest after the uneventful administration of intravenous contrast. All CT scans use one or more of the following dose optimizing techniques: automated exposure control, MA and/or KvP adjustment based on a patient size and exam type, or iterative reconstruction. HISTORY: Shortness of breath. COMPARISON: 03/16/2012. FINDINGS: There is no edema or pneumonia. No pleural effusion. No pneumothorax. No suspicious nodules. There is no axillary or supraclavicular lymphadenopathy. There is no mediastinal lymphadenopathy. Heart size is normal. There are no coronary artery calcifications. No pericardial effusion. Aorta is normal in caliber. Limited views of the upper abdomen show postsurgical changes of cholecystectomy and left renal cyst. There are no suspicious osseous lesions. IMPRESSION: 1. No acute abnormality in the chest. Dictated by: Dictated on workstation # [id number]
== END ==
LOC: RT 13:00
PROVIDERS: ATTEND Internal Medicine Critical Care Medicine
DX: Z13.83 Encounter for screening for respiratory disorder NEC (principal); R06.00 Dyspnea, unspecified
CPT/HCPCS: 71260; 94060; 94726; 94729

== ENCOUNTER 2020-12-29 10:59 | Outpatient (RCR) | payer MEDICARE, OTHER ==
[2020-11-17] MEDS: NS IV 1000 ML 2,000 ML IV PRN (14:05)
[2020-11-17 14:15] VITALS: BP 122/73
[2020-12-08 10:30] VITALS: BP 135/73
[2020-12-08] MEDS: NS IV 1000 ML 2,000 ML ONE ×2 (10:37→14:14)
[2020-12-15 11:50] VITALS: BP 129/71
[2020-12-22 14:20] VITALS: BP 129/73
[~2020-12-29] VITALS: Ht 170.2 cm; Wt 90.0 kg
[~2020-12-29 10:59] MED LIST changes: -CATHETER FLUSH 10 ML SYR IV PRN; -HOLD METFORMIN - RECEIVED CONTRAST 20 ML VIAL IV SCH; -IOHEXOL 350 MG/ML 100 ML (OMNIPAQUE 350) VIAL IV ONE; -NS 100 ML (IVPB) BAG IV ONE; +NS IV 1000 ML 1,000 ML IV ONE; +NS IV 1000 ML 1,000 ML IV PRN; +NS IV 1000 ML 1,000 ML IV SCH; +NS IV 1000 ML 1,000 ML ONE; +NS IV 1000 ML 2,000 ML IV PRN; +NS IV 1000 ML 2,000 ML IV SCH; -RT-ALBUTEROL SULF 2.5 MG/3 ML PRE-MIX VIAL INH ONE; +methylPREDNISolone 40 MG/ML (Solu-MEDROL) VIAL IV ONE; +methylPREDNISolone 40 MG/ML (Solu-MEDROL) VIAL ONE
[2020-12-29] MEDS ORDERED: NS IV 1000 ML 1,000 ML ONE (11:15)
[2020-12-29] MEDS ORDERED: NS IV 1000 ML 1,000 ML IV SCH (11:30)
[2020-12-29 13:30] VITALS: BP 139/71
== END 2021-02-15 | disposition home or self-care (01) ==
LOC: SDC 10:59
PROVIDERS: ATTEND Family Medicine
DX: E86.0 Dehydration (principal); T78.40XA Allergy, unspecified, initial encounter
CPT/HCPCS: 96360; 96361; 96374

== ENCOUNTER → 2021-02-26 | Outpatient (CLI) | payer MEDICARE, OTHER ==
[~2021-02-26] MED LIST changes: -NS IV 1000 ML 1,000 ML IV ONE; -NS IV 1000 ML 1,000 ML IV PRN; -NS IV 1000 ML 1,000 ML IV SCH; -NS IV 1000 ML 1,000 ML ONE; -NS IV 1000 ML 2,000 ML IV PRN; -NS IV 1000 ML 2,000 ML IV SCH; -methylPREDNISolone 40 MG/ML (Solu-MEDROL) VIAL IV ONE; -methylPREDNISolone 40 MG/ML (Solu-MEDROL) VIAL ONE
[2021-02-26 13:05] VITALS: BP 160/96
[2021-02-26 13:20] LABS: BASOPHILS # (AUTO) 0.1 10^3/uL (0.0-0.1); BASOPHILS % (AUTO) 1 % (0-10); EOSINOPHILS # (AUTO) 0.2 10^3/uL (0.0-0.3); EOSINOPHILS % (AUTO) 4 % (0-10); HEMATOCRIT 41 % (35-52); HEMOGLOBIN 13.2 g/dL (11.5-16.0); LYMPHOCYTES # (AUTO) 1.6 10^3/uL (1.0-4.0); LYMPHOCYTES % (AUTO) 25 % (12-44); MEAN CORPUSCULAR HEMOGLOBIN 29 pg (25-34); MEAN CORPUSCULAR HGB CONC 32 g/dL (32-36); MEAN CORPUSCULAR VOLUME 92 fL (80-99); MEAN PLATELET VOLUME 10.1 fL (9.0-12.2); MONOCYTES # (AUTO) 0.5 10^3/uL (0.0-1.0); MONOCYTES % (AUTO) 8 % (0-12); NEUTROPHILS # (AUTO) 3.9 10^3/uL (1.8-7.8); NEUTROPHILS % (AUTO) 61 % (42-75); PLATELET COUNT 241 10^3/uL (130-400); WHITE BLOOD COUNT 6.3 10^3/uL (4.3-11.0)
[2021-02-26 13:45] LABS: ERYTHROCYTE SEDIMENTATION RATE 16 MM/HR (0-30)
--- NOTE | 2021-02-26 13:50 | Diagnostic Imaging Report ---
PROCEDURE: CT abdomen and pelvis without contrast. TECHNIQUE: Multiple contiguous axial images were obtained through the abdomen and pelvis without the use of intravenous contrast. Auto Exposure Controls were utilized during the CT exam to meet ALARA standards for radiation dose reduction. INDICATION: Crohn's disease, complaining of abdominal pain. COMPARISON: Prior CT from 08/12/2015. FINDINGS: The lung bases are clear. No discrete liver mass is identified. The gallbladder is surgically absent. There is no biliary ductal dilatation. The pancreas and spleen are unremarkable. No adrenal mass is identified. The left kidney does contain a 2.2 cm low-density lesion in the upper pole, consistent with a cyst. No calculus or hydronephrosis is identified. The aorta is nonaneurysmal. Extensive surgery has occurred since the prior CT. The patient appears to have had a total colectomy. There has likely been resection of a moderate amount of small bowel. The patient does have a right lower quadrant ostomy. No bowel distention is seen. No definite bowel wall thickening is detected. There is no free fluid or fluid collection. No inflammatory changes in the mesentery are identified. The area of soft tissue thickening in the presacral space on the prior exam is no longer seen. The bladder is decompressed. The uterus is surgically absent. No lymphadenopathy is identified. IMPRESSION: Extensive abdominal surgery and bowel resections. No acute feature is identified on today's exam. Dictated by: Dictated on workstation # [id number]
== END ==
LOC: RAD 12:30
PROVIDERS: ATTEND Internal Medicine Gastroenterology
DX: K50.90 Crohn's disease, unspecified, without complications (principal); K63.89 Other specified diseases of intestine; R79.9 Abnormal finding of blood chemistry, unspecified; Z90.49 Acquired absence of other specified parts of digestive tract
CPT/HCPCS: 36415; 36591; 74176; 85025; 85652; 86038; 86039; 86141

== ENCOUNTER 2021-06-30 11:07 | Outpatient (CLI) | payer MEDICARE, OTHER ==
[2021-06-30 11:25] VITALS: BP 137/75
[2021-07-01] MEDS ORDERED: THIAMINE INJECTION 100 MG, FOLIC ACID INJECTION 1 MG, VITAMIN MULTI INJECTION 10 ML, MA... IV SCH ×5 (09:00)
== END 2021-06-30 14:35 | disposition home or self-care (01) ==
LOC: SDC 11:07
PROVIDERS: ATTEND Family Medicine
DX: E86.0 Dehydration (principal)
CPT/HCPCS: 96360; 96361

== ENCOUNTER 2021-10-12 13:07 | Outpatient (RCR) | payer MEDICARE, OTHER ==
[2021-07-15 12:45] VITALS: BP 137/70
[2021-07-15 13:14] LABS: ALBUMIN 3.8 GM/DL (3.2-4.5); BILIRUBIN,TOTAL 0.4 MG/DL (0.1-1.0); CALCIUM 9.6 MG/DL (8.5-10.1); CREATININE SERUM 1.32 MG/DL (0.60-1.30); POTASSIUM 3.9 MMOL/L (3.6-5.0)
[2021-08-04 12:01] VITALS: BP 120/84
[2021-09-17 11:00] VITALS: BP 138/71
[2021-10-05 11:20] VITALS: BP 136/75
[~2021-10-12] VITALS: Ht 146.9 cm; Wt 90.0 kg
[~2021-10-12 13:07] MED LIST changes: +CYCL10TA25 PO; +NS IV 1000 ML 1,000 ML IV SCH; +NS IV 1000 ML 1,000 ML ONE; +THIAMINE INJECTION 100 MG, FOLIC ACID INJECTION 1 MG, VITAMIN MULTI INJECTION 10 ML, MA... IV ONE; +methylPREDNISolone 40 MG/ML (Solu-MEDROL) VIAL IV ONE
[2021-10-12] MEDS ORDERED: NS IV 1000 ML 1,000 ML IV SCH (13:30)
[2021-10-12] MEDS ORDERED: methylPREDNISolone 40 MG/ML (Solu-MEDROL) VIAL IV ONE (13:30)
[2021-10-12 16:00] VITALS: BP 133/87
== END 2021-10-13 | disposition home or self-care (01) ==
LOC: SDC 13:07
PROVIDERS: ATTEND Nurse Practitioner Family
DX: K50.118 Crohn's disease of large intestine with other complication (principal); E86.0 Dehydration; K91.1 Postgastric surgery syndromes; Z91.09 Other allergy status, other than to drugs and biological substances
CPT/HCPCS: 36415; 80053; 96360; 96361

== ENCOUNTER → 2021-11-16 | Outpatient (RCR) | payer MEDICARE, OTHER ==
[2021-10-19 11:19] VITALS: BP 116/57
[2021-10-26] MEDS: NS IV 1000 ML 1,000 ML IV PRN (12:38)
[2021-10-26 13:45] VITALS: BP 117/57
[2021-11-02] MEDS: NS IV 1000 ML 1,000 ML IV PRN ×2 (11:32→12:30)
[2021-11-02 12:06] VITALS: BP 132/67
[~2021-11-16] VITALS: Ht 172.7 cm; Wt 90.0 kg
[~2021-11-16] MED LIST changes: +NS IV 1000 ML 1,000 ML IV ONE; -NS IV 1000 ML 1,000 ML IV SCH; -THIAMINE INJECTION 100 MG, FOLIC ACID INJECTION 1 MG, VITAMIN MULTI INJECTION 10 ML, MA... IV ONE; -methylPREDNISolone 40 MG/ML (Solu-MEDROL) VIAL IV ONE
[2021-11-16 11:15] VITALS: BP 139/77
[2021-11-16] MEDS: NS IV 1000 ML 1,000 ML IV PRN ×2 (11:34→12:36)
== END | disposition home or self-care (01) ==
LOC: SDC 10-19 11:28
PROVIDERS: ATTEND Nurse Practitioner Family
DX: K50.118 Crohn's disease of large intestine with other complication (principal); E86.0 Dehydration
CPT/HCPCS: 96360; 96361; 96367

== ENCOUNTER → 2021-12-14 | Outpatient (RCR) | payer MEDICARE, OTHER ==
[2021-11-24 11:20] VITALS: BP 101/49
[2021-11-24 13:50] VITALS: BP 101/49
[2021-11-30 11:20] VITALS: BP 114/54
[2021-12-07 11:25] VITALS: BP 117/57
[2021-12-07] MEDS: NS IV 1000 ML 1,000 ML IV PRN ×2 (11:40→12:50)
[~2021-12-14] MED LIST changes: +NS IV 1000 ML 1,000 ML IV PRN; -NS IV 1000 ML 1,000 ML ONE; +NS IV 1000 ML 2,000 ML ONE
[2021-12-14 11:41] VITALS: BP 110/70
[2021-12-14] MEDS: NS IV 1000 ML 1,000 ML IV PRN (11:46)
== END | disposition home or self-care (01) ==
LOC: SDC 11-24 11:21
PROVIDERS: ATTEND Nurse Practitioner Family
DX: E86.0 Dehydration (principal); K91.1 Postgastric surgery syndromes; K50.118 Crohn's disease of large intestine with other complication
CPT/HCPCS: 96360; 96361

== ENCOUNTER 2021-12-22 10:57 | Outpatient (RCR) | payer MEDICARE, OTHER ==
[2021-12-21 11:20] VITALS: BP 116/58
[2021-12-21 11:45] LABS: BASOPHILS # (AUTO) 0.1 10^3/uL (0.0-0.1); BASOPHILS % (AUTO) 1 % (0-10); EOSINOPHILS # (AUTO) 0.2 10^3/uL (0.0-0.3); EOSINOPHILS % (AUTO) 3 % (0-10); HEMATOCRIT 38 % (35-52); HEMOGLOBIN 12.1 g/dL (11.5-16.0); LYMPHOCYTES # (AUTO) 1.4 10^3/uL (1.0-4.0); LYMPHOCYTES % (AUTO) 22 % (12-44); MEAN CORPUSCULAR HEMOGLOBIN 30 pg (25-34); MEAN CORPUSCULAR HGB CONC 32 g/dL (32-36); MEAN CORPUSCULAR VOLUME 95 fL (80-99); MEAN PLATELET VOLUME 10.2 fL (9.0-12.2); MONOCYTES # (AUTO) 0.3 10^3/uL (0.0-1.0); MONOCYTES % (AUTO) 5 % (0-12); NEUTROPHILS # (AUTO) 4.5 10^3/uL (1.8-7.8); NEUTROPHILS % (AUTO) 69 % (42-75); PLATELET COUNT 256 10^3/uL (130-400); WHITE BLOOD COUNT 6.5 10^3/uL (4.3-11.0)
[2021-12-21] MEDS: NS IV 1000 ML 2,000 ML ONE ×2 (11:50→12:50)
[2021-12-21 12:08] LABS: ALBUMIN 3.9 GM/DL (3.2-4.5); BILIRUBIN,TOTAL 0.5 MG/DL (0.1-1.0); CALCIUM 9.2 MG/DL (8.5-10.1); CREATININE SERUM 1.58 MG/DL (0.60-1.30); POTASSIUM 3.5 MMOL/L (3.6-5.0)
[2021-12-21] MEDS: MAGNESIUM 1 GM/100 ML IVPB 100 ML IV SCH ×2 (13:25→14:40)
[2021-12-21 15:40] VITALS: BP 116/58
[2021-12-22 10:55] VITALS: BP 118/59
[~2021-12-22 10:57] MED LIST changes: -NS IV 1000 ML 1,000 ML IV ONE; -NS IV 1000 ML 1,000 ML IV PRN; -NS IV 1000 ML 2,000 ML ONE
[2021-12-22] MEDS: MAGNESIUM 1 GM/100 ML IVPB 100 ML IV SCH ×2 (11:02→12:00)
== END 2021-12-22 13:00 | disposition home or self-care (01) ==
LOC: SDC 10:57
PROVIDERS: ATTEND Nurse Practitioner Family
DX: E86.0 Dehydration (principal); K91.1 Postgastric surgery syndromes; K50.118 Crohn's disease of large intestine with other complication
CPT/HCPCS: 36415; 80053; 83735; 85025; 96360; 96361; 96365; 96366

== ENCOUNTER 2022-02-08 11:14 | Outpatient (RCR) | payer MEDICARE, OTHER ==
[2022-01-18 11:15] VITALS: BP 116/62
[2022-01-25 11:10] VITALS: BP 110/57
[2022-02-01 11:15] VITALS: BP 133/70
[~2022-02-08 11:14] MED LIST changes: +NS IV 1000 ML 2,000 ML ONE
[2022-02-08 11:15] VITALS: BP 157/84
[2022-02-08] MEDS ORDERED: NS IV 1000 ML 2,000 ML ONE (11:17)
== END 2022-02-13 | disposition home or self-care (01) ==
LOC: SDC 11:14
PROVIDERS: ATTEND Nurse Practitioner Family
DX: E86.0 Dehydration (principal); K91.1 Postgastric surgery syndromes; K50.118 Crohn's disease of large intestine with other complication
CPT/HCPCS: 96360; 96361

== ENCOUNTER → 2022-03-16 | Outpatient (RCR) | payer MEDICARE, OTHER ==
[2022-02-15 11:11] VITALS: BP 128/57
[2022-02-22 11:35] VITALS: BP 99/57
[2022-02-24 08:19] LABS: BASOPHILS # (AUTO) 0.1 10^3/uL (0.0-0.1); BASOPHILS % (AUTO) 1 % (0-10); EOSINOPHILS # (AUTO) 0.1 10^3/uL (0.0-0.3); EOSINOPHILS % (AUTO) 1 % (0-10); HEMATOCRIT 40 % (35-52); LYMPHOCYTES # (AUTO) 1.3 10^3/uL (1.0-4.0); LYMPHOCYTES % (AUTO) 19 % (12-44); MEAN CORPUSCULAR HEMOGLOBIN 29 pg (25-34); MEAN CORPUSCULAR HGB CONC 33 g/dL (32-36); MEAN CORPUSCULAR VOLUME 90 fL (80-99); MEAN PLATELET VOLUME 10.4 fL (9.0-12.2); MONOCYTES # (AUTO) 0.6 10^3/uL (0.0-1.0); MONOCYTES % (AUTO) 9 % (0-12); NEUTROPHILS # (AUTO) 4.5 10^3/uL (1.8-7.8); NEUTROPHILS % (AUTO) 69 % (42-75); PLATELET COUNT 348 10^3/uL (130-400); WHITE BLOOD COUNT 6.6 10^3/uL (4.3-11.0)
[2022-02-24 08:23] VITALS: BP 124/73
[2022-02-24 08:40] LABS: ALBUMIN 4.2 GM/DL (3.2-4.5); POTASSIUM 4.5 MMOL/L (3.6-5.0)
[2022-02-24 08:41] LABS: CALCIUM 10.3 MG/DL (8.5-10.1)
[2022-02-24 08:43] LABS: TOTAL PROTEIN 7.6 GM/DL (6.4-8.2)
[2022-02-24 08:44] LABS: BILIRUBIN,TOTAL 0.4 MG/DL (0.1-1.0)
[2022-02-24 08:49] LABS: MAGNESIUM 1.5 MG/DL (1.6-2.4)
[2022-02-24 09:09] LABS: CREATININE SERUM 3.9 MG/DL (0.60-1.30)
[2022-02-24 09:10] LABS: TSH (THYROID ANALYZER) 1.71 UIU/ML (0.35-4.94)
[2022-02-26 13:35] VITALS: BP 138/79
[2022-02-26 14:12] LABS: POTASSIUM 3.9 MMOL/L (3.6-5.0)
[2022-02-26 14:13] LABS: CALCIUM 9.4 MG/DL (8.5-10.1)
[2022-02-26 14:14] LABS: TOTAL PROTEIN 7.2 GM/DL (6.4-8.2)
[2022-02-26 14:16] LABS: BILIRUBIN,TOTAL 0.3 MG/DL (0.1-1.0)
[2022-02-26 14:18] LABS: CREATININE SERUM 2.01 MG/DL (0.60-1.30)
[2022-03-01 11:52] VITALS: BP 131/63
[2022-03-01 12:28] LABS: HEMATOCRIT 34 % (35-52); HEMOGLOBIN 11.2 g/dL (11.5-16.0); MEAN CORPUSCULAR HEMOGLOBIN 30 pg (25-34); MEAN CORPUSCULAR HGB CONC 33 g/dL (32-36); MEAN CORPUSCULAR VOLUME 90 fL (80-99); MEAN PLATELET VOLUME 10.2 fL (9.0-12.2); PLATELET COUNT 268 10^3/uL (130-400); WHITE BLOOD COUNT 6.2 10^3/uL (4.3-11.0)
[2022-03-01 12:47] LABS: ALBUMIN 3.7 GM/DL (3.2-4.5); POTASSIUM 3.5 MMOL/L (3.6-5.0)
[2022-03-01 12:49] LABS: CALCIUM 9.4 MG/DL (8.5-10.1)
[2022-03-01 12:50] LABS: TOTAL PROTEIN 6.5 GM/DL (6.4-8.2)
[2022-03-01 12:52] LABS: BILIRUBIN,TOTAL 0.7 MG/DL (0.1-1.0)
[2022-03-01 12:53] LABS: CREATININE SERUM 1.8 MG/DL (0.60-1.30)
[2022-03-01 13:03] LABS: MAGNESIUM 1.1 MG/DL (1.6-2.4)
[2022-03-01] MEDS: MAGNESIUM 1 GM/100 ML IVPB 100 ML IV SCH ×3 (13:28→15:37)
[2022-03-04 11:38] LABS: HEMATOCRIT 35 % (35-52); HEMOGLOBIN 11.5 g/dL (11.5-16.0); MEAN CORPUSCULAR HEMOGLOBIN 30 pg (25-34); MEAN CORPUSCULAR HGB CONC 33 g/dL (32-36); MEAN CORPUSCULAR VOLUME 91 fL (80-99); MEAN PLATELET VOLUME 9.8 fL (9.0-12.2); PLATELET COUNT 254 10^3/uL (130-400); WHITE BLOOD COUNT 7.6 10^3/uL (4.3-11.0)
[2022-03-04 11:48] LABS: ALBUMIN 3.7 GM/DL (3.2-4.5); POTASSIUM 3.7 MMOL/L (3.6-5.0)
[2022-03-04 11:49] LABS: CALCIUM 9.5 MG/DL (8.5-10.1)
[2022-03-04 11:50] LABS: TOTAL PROTEIN 6.5 GM/DL (6.4-8.2)
[2022-03-04 11:52] LABS: BILIRUBIN,TOTAL 0.5 MG/DL (0.1-1.0)
[2022-03-04 11:54] LABS: CREATININE SERUM 1.83 MG/DL (0.60-1.30)
[2022-03-04 11:57] LABS: MAGNESIUM 1.5 MG/DL (1.6-2.4)
[2022-03-04 13:50] VITALS: BP 148/82
[2022-03-08 10:40] VITALS: BP 150/85
[~2022-03-16] MED LIST changes: +NS IV 1000 ML 1,000 ML IV ONE; +NS IV 1000 ML 1,000 ML IV PRN; +NS IV 1000 ML 1,000 ML IV SCH; +NS IV 1000 ML 1,000 ML ONE; +NS IV 1000 ML 2,000 ML IV SCH; +POTASSIUM CL 10MEQ/50ML IVPB 50 ML IV SCH
[2022-03-16 11:15] VITALS: BP 140/80
== END | disposition home or self-care (01) ==
LOC: SDC 02-15 10:49
PROVIDERS: ATTEND Nurse Practitioner Family
DX: E86.0 Dehydration (principal); K91.1 Postgastric surgery syndromes; K50.118 Crohn's disease of large intestine with other complication
CPT/HCPCS: 36415; 36591; 80053; 82306; 82607; 83036; 83735; 84443; 85025; 85027; 96360; 96361; 96367

== ENCOUNTER 2022-04-12 10:57 | Outpatient (RCR) | payer MEDICARE, OTHER ==
[2022-03-22 11:14] VITALS: BP 142/73
[2022-03-29 10:15] VITALS: BP 159/97
[2022-03-29] MEDS: MAGNESIUM 1 GM/D5W 100 ML IVPB IV SCH ×2 (10:30→11:25)
[2022-04-05] MEDS: NS IV 1000 ML 1,000 ML IV SCH (11:20)
[2022-04-05 11:27] VITALS: BP 140/84
[~2022-04-12] VITALS: Wt 90.0 kg
[~2022-04-12 10:57] MED LIST changes: +MAGNESIUM 1 GM/100 ML IVPB 200 ML IV ONE; -NS IV 1000 ML 1,000 ML IV ONE; -NS IV 1000 ML 1,000 ML IV PRN; -NS IV 1000 ML 1,000 ML IV SCH; -NS IV 1000 ML 1,000 ML ONE; +NS IV 1000 ML 2,000 ML IV ONE; -NS IV 1000 ML 2,000 ML IV SCH; -POTASSIUM CL 10MEQ/50ML IVPB 50 ML IV SCH; +PROMETHAZINE INJ 25 MG/ML (PHENERGAN) AMP ONE
[2022-04-12] MEDS ORDERED: NS IV 1000 ML 2,000 ML ONE (11:06)
[2022-04-12] MEDS: NS IV 1000 ML 1,000 ML IV SCH (11:11)
[2022-04-12 11:41] VITALS: BP 165/80
[2022-04-12] MEDS ORDERED: NS IV 1000 ML 2,000 ML IV PRN (12:15)
== END 2022-04-15 | disposition home or self-care (01) ==
LOC: SDC 10:57
PROVIDERS: ATTEND Nurse Practitioner Family
DX: E86.0 Dehydration (principal); K50.118 Crohn's disease of large intestine with other complication; K91.1 Postgastric surgery syndromes; R79.89 Other specified abnormal findings of blood chemistry
CPT/HCPCS: 96360; 96361; 96365; 96366; 96374

== ENCOUNTER 2022-05-10 10:46 | Outpatient (RCR) | payer MEDICARE, OTHER ==
[2022-04-20 10:39] VITALS: BP 110/72
[2022-04-26 11:15] VITALS: BP 147/80
[2022-05-03 10:35] VITALS: BP 164/52
[2022-05-03 11:18] LABS: HEMATOCRIT 37 % (35-52); HEMOGLOBIN 12.1 g/dL (11.5-16.0); MEAN CORPUSCULAR HEMOGLOBIN 30 pg (25-34); MEAN CORPUSCULAR HGB CONC 32 g/dL (32-36); MEAN CORPUSCULAR VOLUME 93 fL (80-99); PLATELET COUNT 230 10^3/uL (130-400)
[2022-05-03 11:55] LABS: ALBUMIN 3.7 GM/DL (3.2-4.5); BILIRUBIN,TOTAL 0.8 MG/DL (0.1-1.0); CALCIUM 9.7 MG/DL (8.5-10.1); CREATININE SERUM 1.58 MG/DL (0.60-1.30); MAGNESIUM 1.2 MG/DL (1.6-2.4); POTASSIUM 3.9 MMOL/L (3.6-5.0); TOTAL PROTEIN 6.7 GM/DL (6.4-8.2)
[~2022-05-10] VITALS: Wt 90.0 kg
[~2022-05-10 10:46] MED LIST changes: -MAGNESIUM 1 GM/100 ML IVPB 200 ML IV ONE; +NS IV 1000 ML 1,000 ML IV SCH; -NS IV 1000 ML 2,000 ML IV ONE; +NS IV 1000 ML 2,000 ML IV SCH; +PROMETHAZINE INJ 25 MG/ML (PHENERGAN) AMP IV PRN
[2022-05-10 11:00] VITALS: BP 150/77
[2022-05-10] MEDS ORDERED: NS IV 1000 ML 2,000 ML ONE (11:00)
== END 2022-05-16 | disposition home or self-care (01) ==
LOC: SDC 10:46
PROVIDERS: ATTEND Nurse Practitioner Family
DX: K50.118 Crohn's disease of large intestine with other complication (principal); K91.1 Postgastric surgery syndromes; E83.42 Hypomagnesemia; E86.0 Dehydration; R79.89 Other specified abnormal findings of blood chemistry
CPT/HCPCS: 36415; 80053; 83735; 85027; 96360; 96361; 96374

== ENCOUNTER → 2022-05-14 | Outpatient (CLI) | payer MEDICARE, OTHER ==
[~2022-05-14] MED LIST changes: +BARIUM for suspension 98% w/w (Vanilla Silq High Density) PO ONE; -NS IV 1000 ML 1,000 ML IV SCH; -NS IV 1000 ML 2,000 ML IV SCH; -NS IV 1000 ML 2,000 ML ONE; -PROMETHAZINE INJ 25 MG/ML (PHENERGAN) AMP IV PRN; -PROMETHAZINE INJ 25 MG/ML (PHENERGAN) AMP ONE
--- NOTE | 2022-05-15 21:44 | Diagnostic Imaging Report ---
INDICATION: Nausea. EXAMINATION: Small bowel exam. COMPARISON: There are no prior small bowel examinations available for comparison. FINDINGS: The CT abdomen/pelvis exam of 02/26/2021 noted extensive abdominal surgery and bowel resections. By history, the patient has a diagnosis of Crohn's disease and has had multiple resections of the small bowel as well as a total colectomy. The combustion engineer film reveals that there is an ostomy site overlying the right mid abdomen. The bowel gas pattern itself is nonspecific. There is no sign of a bowel obstruction. A double contrast study was performed. The patient swallowed contrast material without difficulty. There was no delay or obstruction of passage of the contrast through the esophagus. There is no evidence for a hiatal hernia or for gastroesophageal reflux. The stomach shows fairly good distensibility and motility. The gastric rugae are somewhat thickened but there is no clear evidence for gastritis. There is no active ulcer noted. The transit time from the stomach to the small bowel was approximately 90 minutes. Small bowel, where visualized, is unremarkable. There is no abnormal narrowing or dilatation and there is no sign of fistula formation. IMPRESSION: 1. There is no abnormality of the remaining small bowel to suggest Crohn's disease. 2. The gastric rugae are somewhat thickened but this is not conclusive for acute gastritis. There is no gastric ulcer noted. 3. The esophagus is generally unremarkable. Dictated by: Dictated on workstation # [id number]
== END ==
LOC: RAD 08:00
PROVIDERS: ATTEND Family Medicine
DX: K50.90 Crohn's disease, unspecified, without complications (principal)
CPT/HCPCS: 74248

== ENCOUNTER 2022-06-14 10:54 | Outpatient (RCR) | payer MEDICARE, OTHER ==
[2022-05-17 10:40] VITALS: BP 148/79
[2022-05-24 10:55] VITALS: BP 136/71
[2022-05-31] MEDS: NS IV 1000 ML 2,000 ML IV PRN (11:22)
[2022-05-31 13:25] VITALS: BP 129/76
[2022-06-07 11:00] VITALS: BP 144/89
[2022-06-07] MEDS: NS IV 1000 ML 2,000 ML IV PRN (11:15)
[~2022-06-14 10:54] MED LIST changes: -BARIUM for suspension 98% w/w (Vanilla Silq High Density) PO ONE; +NS IV 1000 ML 2,000 ML IV SCH; +NS IV 1000 ML 2,000 ML ONE; +PROMETHAZINE INJ 25 MG/ML (PHENERGAN) AMP ONE
[2022-06-14 11:15] VITALS: BP 140/77
[2022-06-14] MEDS: NS IV 1000 ML 2,000 ML IV PRN (11:15)
== END 2022-06-16 | disposition home or self-care (01) ==
LOC: SDC 10:54
PROVIDERS: ATTEND Nurse Practitioner Family
DX: E83.42 Hypomagnesemia (principal); E86.0 Dehydration; K50.118 Crohn's disease of large intestine with other complication; R79.89 Other specified abnormal findings of blood chemistry
CPT/HCPCS: 96360; 96361

== ENCOUNTER 2022-07-12 10:57 | Outpatient (RCR) | payer MEDICARE, OTHER ==
[2022-06-23 11:35] VITALS: BP 0/0
[2022-06-23] MEDS: NS IV 1000 ML 2,000 ML IV PRN (11:40)
[2022-06-23 12:03] LABS: HEMATOCRIT 36 % (35-52); HEMOGLOBIN 11.7 g/dL (11.5-16.0); MEAN CORPUSCULAR HEMOGLOBIN 30 pg (25-34); MEAN CORPUSCULAR HGB CONC 33 g/dL (32-36); MEAN CORPUSCULAR VOLUME 92 fL (80-99); PLATELET COUNT 263 10^3/uL (130-400); WHITE BLOOD COUNT 6.7 10^3/uL (4.3-11.0)
[2022-06-23 12:23] LABS: ALBUMIN 3.4 GM/DL (3.2-4.5); BILIRUBIN,TOTAL 0.4 MG/DL (0.1-1.0); CALCIUM 9.4 MG/DL (8.5-10.1); CREATININE SERUM 1.32 MG/DL (0.60-1.30); MAGNESIUM 1.5 MG/DL (1.6-2.4); POTASSIUM 3.9 MMOL/L (3.6-5.0); TOTAL PROTEIN 6.5 GM/DL (6.4-8.2)
[2022-06-28 11:48] VITALS: BP 130/78
[2022-07-02 12:10] VITALS: BP 134/79
[2022-07-05 11:25] VITALS: BP 147/83
[2022-07-05] MEDS: NS IV 1000 ML 2,000 ML IV PRN (11:33)
[~2022-07-12] VITALS: Ht 172.7 cm; Wt 79.5 kg
[2022-07-12 10:55] VITALS: BP 159/72
[~2022-07-12 10:57] MED LIST changes: +NS IV 1000 ML 1,000 ML IV ONE; -NS IV 1000 ML 2,000 ML IV SCH; +PROMETHAZINE INJ 25 MG/ML (PHENERGAN) AMP IV PRN; -PROMETHAZINE INJ 25 MG/ML (PHENERGAN) AMP ONE
[2022-07-12] MEDS ORDERED: PROMETHAZINE INJ 25 MG/ML (PHENERGAN) AMP IM PRN (11:15)
[2022-07-12] MEDS: NS IV 1000 ML 2,000 ML IV PRN (11:25)
== END 2022-07-16 | disposition home or self-care (01) ==
LOC: SDC 10:57
PROVIDERS: ATTEND Nurse Practitioner Family
DX: E86.0 Dehydration (principal); K91.1 Postgastric surgery syndromes; E83.42 Hypomagnesemia; K50.118 Crohn's disease of large intestine with other complication; R79.89 Other specified abnormal findings of blood chemistry
CPT/HCPCS: 36415; 36591; 80053; 82607; 83735; 85027; 96360; 96361; 96372

== ENCOUNTER → 2022-08-16 | Outpatient (RCR) | payer MEDICARE, OTHER ==
[2022-07-19 11:15] VITALS: BP 139/70
[2022-07-26 11:22] VITALS: BP 163/87
[2022-08-02 11:23] VITALS: BP 139/83
[2022-08-09 12:07] VITALS: BP 153/82
[~2022-08-16] MED LIST changes: -NS IV 1000 ML 1,000 ML IV ONE; +NS IV 1000 ML 1,000 ML IV SCH; +PROMETHAZINE INJ 25 MG/ML (PHENERGAN) AMP IM PRN; -PROMETHAZINE INJ 25 MG/ML (PHENERGAN) AMP IV PRN
[2022-08-16 11:00] VITALS: BP 142/75
[2022-08-16] MEDS: NS IV 1000 ML 1,000 ML IV SCH ×2 (11:15→12:14)
== END | disposition home or self-care (01) ==
LOC: SDC 07-19 10:48
PROVIDERS: ATTEND Nurse Practitioner Family
DX: E86.0 Dehydration (principal); K91.1 Postgastric surgery syndromes
CPT/HCPCS: 96360; 96361; 96365

== ENCOUNTER 2022-09-13 10:48 | Outpatient (RCR) | payer MEDICARE, OTHER ==
[2022-08-23 11:15] VITALS: BP 165/93
[2022-08-23] MEDS: NS IV 1000 ML 1,000 ML IV SCH ×2 (11:28→11:29)
[2022-09-01 13:35] VITALS: BP 168/86
[2022-09-07 11:18] VITALS: BP 170/81
[~2022-09-13] VITALS: Wt 79.5 kg
[2022-09-13 10:48] VITALS: BP 153/85
[~2022-09-13 10:48] MED LIST changes: +NS IV 1000 ML 2,000 ML IV SCH; +PROMETHAZINE INJ 25 MG/ML (PHENERGAN) AMP IM ONE; -PROMETHAZINE INJ 25 MG/ML (PHENERGAN) AMP IM PRN; +PROMETHAZINE INJ 25 MG/ML (PHENERGAN) AMP ONE
[2022-09-13] MEDS ORDERED: NS IV 1000 ML 2,000 ML ONE (10:57)
[2022-09-13] MEDS: NS IV 1000 ML 1,000 ML IV SCH ×2 (11:17→12:10)
== END 2022-09-15 | disposition home or self-care (01) ==
LOC: SDC 10:48
PROVIDERS: ATTEND Family Medicine
DX: E86.0 Dehydration (principal); K91.1 Postgastric surgery syndromes
CPT/HCPCS: 96360; 96361; 96367; 96372

== ENCOUNTER 2022-10-12 11:01 | Outpatient (RCR) | payer MEDICARE, OTHER ==
[2022-09-20 11:15] VITALS: BP 159/81
[2022-09-27] MEDS: NS IV 1000 ML 1,000 ML IV SCH ×2 (11:23→12:28)
[2022-09-27 13:33] VITALS: BP 142/86
[2022-10-04 12:09] VITALS: BP 142/85
[~2022-10-12] VITALS: Ht 172.7 cm; Wt 79.5 kg
[~2022-10-12 11:01] MED LIST changes: +NS IV 1000 ML 1,000 ML ONE; -NS IV 1000 ML 2,000 ML IV SCH; -PROMETHAZINE INJ 25 MG/ML (PHENERGAN) AMP IM ONE; +PROMETHAZINE INJ 25 MG/ML (PHENERGAN) AMP IM PRN
[2022-10-12] MEDS ORDERED: NS IV 1000 ML 2,000 ML ONE (11:34)
[2022-10-12] MEDS ORDERED: NS IV 1000 ML 1,000 ML IV SCH (12:00)
[2022-10-12 12:12] VITALS: BP 125/73
== END 2022-10-16 | disposition home or self-care (01) ==
LOC: SDC 11:01
PROVIDERS: ATTEND Family Medicine
DX: E86.0 Dehydration (principal); K91.1 Postgastric surgery syndromes
CPT/HCPCS: 96360; 96361; 96372

== ENCOUNTER 2022-11-01 11:07 | Emergency (ER) | payer MEDICARE, OTHER ==
[~2022-11-01] VITALS: Ht 172.7 cm; Wt 77.1 kg
[~2022-11-01 11:07] MED LIST changes: -NS IV 1000 ML 1,000 ML IV SCH; -NS IV 1000 ML 1,000 ML ONE; -NS IV 1000 ML 2,000 ML ONE; -PROMETHAZINE INJ 25 MG/ML (PHENERGAN) AMP IM PRN; -PROMETHAZINE INJ 25 MG/ML (PHENERGAN) AMP ONE
--- NOTE | 2022-11-01 11:42 | ED Lower Extremity ---
General Chief Complaint: Lower Extremity Stated Complaint: POSSIBLE BLOOD CLOT IN LT LOWER LEG Nursing Triage Note: PT AMBULATE TO TRIAGE WITHOUT DIFFICULTY WITH C/O LEFT LOWER LEG/FOOT PAIN STATING TUESDAY. PT REPORTS PAIN STARTED IN CALF AND HAS MOVED DOWN TO HER FOOT. PT REPORTS SWELLING OF LEFT ANKLE. PT CALLED DR THOMAS AND WAS TOLD TO COME TO ED BECAUSE IT WOULD BE FASTER THAN GOING TO OFFICE AND GETTING AN OUTPATIENT ORDER OF US. PT REPORTS THIS HAPPENED X2 WEEKS AGO THAT LASTED X3-4 DAYS AND THEN WENT AWAY ON OWN. Source: patient Exam Limitations: no limitations History of Present Illness Date Seen by Provider: Nov 01, 2022 Time Seen by Provider: 11:26 Initial Comments This is a 67-year-old female who presented to the ER for concern of DVT in her left leg. States that she has intermittent burning pain in her left lower extremity. Tuesday she had burning pain on medial calf that has now localized to her medial ankle. Allergies and Home Medications Allergies Coded Allergies: No Known Drug Allergies (Unverified , 05/11/17) Patient Home Medication List Aripiprazole (Aripiprazole) 5 Mg Tablet, 5 MG PO DAILY, (Reported) Entered as Reported by: IAN EVGA on 05/11/17 1129 Clonidine (Catapres-TTS 1 Patch) 1 Each Patch.tdwk, 1 EACH TD Q7D, (Reported) Entered as Reported by: REAGAN HERNANDEZ on 11/17/16 1140 Diltiazem HCl (Diltiazem HCl) 30 Mg Tablet, 30 MG PO TID, (Reported) Entered as Reported by: IAN VEGA on 05/11/17 1129 Escitalopram Oxalate (Escitalopram Oxalate) 20 Mg Tablet, 40 MG PO HS, (Reported) Entered as Reported by: MANUEL DELANEY on 08/13/15 1054 Hydralazine HCl (Hydralazine HCl) 50 Mg Tablet, 50 MG PO BID, (Reported) Entered as Reported by: IAN VEGA on 05/11/17 1129 Hydrocodone Bit/Acetaminophen (Lortab 7.5 Mg Tablet) 1 Each Tablet, 1-2 EACH PO Q4H Prescribed by: SUNNY STACY on 05/12/17 1324 Lorazepam (Lorazepam) 0.5 Mg Tablet, 0.5 MG PO BID, (Reported) Entered as Reported by: IAN VEGA on 05/11/17 1129 Omeprazole (Omeprazole) 20 Mg Capsule.dr, 20 MG PO HS, (Reported) Entered as Reported by: MANUEL DELANEY on 08/13/15 1054 Tramadol HCl (Tramadol HCl) 50 Mg Tablet, 50 MG PO Q6H PRN for PAIN, (Reported) Entered as Reported by: MANUEL DELANEY on 08/13/15 1054 Past Yskevya-Xawvbm-Jjdtrs Hx Patient Social History Tobacco Use?: No Smoking Status: Never a Smoker Smokeless Tobacco Frequency: Never a User Use of E-Cig and/or Vaping dev: No Use of E-Cig and/or Vaping Papo: Never a User Substance use?: No Alcohol Use?: No Pt feels they are or have been: No Immunizations Up To Date Tetanus Booster (TDap): More than 5yrs PED Vaccines UTD: No COVID19 Vaccine [employer]: [employer] Seasonal Allergies Seasonal Allergies: No Past Medical History Abdominal, Appendectomy, Gallbladder, Hysterectomy Hypertension Headaches /Migraines Reproductive Disorders: No 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 8.0oz. 89.863071ii; 25.00 BMI Method:Stated Progress/Results/Core Measures Results/Orders Lab Results Laboratory Tests Test 11/01/22 11:40 Range/Units White Blood Count 6.9 4.3-11.0 10^3/uL Red Blood Count 4.38 3.80-5.11 10^6/uL Hemoglobin 13.3 11.5-16.0 g/dL Hematocrit 40 35-52 % Mean Corpuscular Volume 92 80-99 fL Mean Corpuscular Hemoglobin 30 25-34 pg Mean Corpuscular Hemoglobin Concent 33 32-36 g/dL Red Cell Distribution Width 13.2 10.0-14.5 % Platelet Count 246 130-400 10^3/uL Mean Platelet Volume 9.9 9.0-12.2 fL Immature Granulocyte % (Auto) 0 % Neutrophils (%) (Auto) 73 42-75 % Lymphocytes (%) (Auto) 17 12-44 % Monocytes (%) (Auto) 6 0-12 % Eosinophils (%) (Auto) 2 0-10 % Basophils (%) (Auto) 1 0-10 % Neutrophils # (Auto) 5.1 1.8-7.8 10^3/uL Lymphocytes # (Auto) 1.2 1.0-4.0 10^3/uL Monocytes # (Auto) 0.4 0.0-1.0 10^3/uL Eosinophils # (Auto) 0.2 0.0-0.3 10^3/uL Basophils # (Auto) 0.1 0.0-0.1 10^3/uL Immature Granulocyte # (Auto) 0.0 0.0-0.1 10^3/uL Sodium Level 139 135-145 MMOL/L Potassium Level 3.4 L 3.6-5.0 MMOL/L Chloride Level 110 H 98-107 MMOL/L Carbon Dioxide Level 17 L 21-32 MMOL/L Anion Gap 12 5-14 MMOL/L Blood Urea Nitrogen 34 H 7-18 MG/DL Creatinine 1.81 H 0.60-1.30 MG/DL Estimat Glomerular Filtration Rate 30 BUN/Creatinine Ratio 19 Glucose Level 150 H 70-105 MG/DL Calcium Level 9.3 8.5-10.1 MG/DL Corrected Calcium 9.5 8.5-10.1 MG/DL Magnesium Level 0.8 *L 1.6-2.4 MG/DL Total Bilirubin 0.5 0.1-1.0 MG/DL Aspartate Amino Transf (AST/SGOT) 18 5-34 U/L Alanine Aminotransferase (ALT/SGPT) 25 0-55 U/L Alkaline Phosphatase 59 40-136 U/L Total Protein 6.7 6.4-8.2 GM/DL Albumin 3.8 3.2-4.5 GM/DL My Orders Orders - DADA CEJA RUG CUTTER Ankle, Left, 3 Views (11/01/22 11:34) Cbc With Automated Diff (11/01/22 11:34) Comprehensive Metabolic Panel (11/01/22 11:34) Magnesium (11/01/22 11:34) Ns Iv 1000 Ml (Sodium Chloride 0.9%) (11/01/22 11:45) Magnesium 1 Gm/100 Ml Ivpb (Magnesium Nickerson (11/01/22 12:45) Us Venous Lower Ext Lt (11/01/22 12:46) Ketorolac Injection (Toradol Injection) (11/01/22 14:15) Medications Given in ED Current Medications Medications Dose Ordered Sig/Jean-Pierre Route Start Time Stop Time Status Last Admin Dose Admin Ketorolac Tromethamine 15 mg ONCE ONCE IVP 11/01/22 14:15 11/01/22 14:16 DC 11/01/22 14:19 15 MG Magnesium Sulfate/ Dextrose 100 ml @ 100 mls/hr ONCE ONCE IV 11/01/22 12:45 11/01/22 13:44 DC 11/01/22 13:13 100 MLS/HR Vital Signs/I&O 11/01/22 11:12 Temp 36.8 Pulse 105 Resp 19 B/P (MAP) 152/80 (104) O2 Delivery Room Air Blood Pressure Mean: 104 Progress Progress Note : Progress Note Patient examined no acute distress. She has no erythema, swelling, warmth to either lower extremities. She has 2+ dorsalis pedis pulse, cap refill less than 2 seconds, full sensation and ROM. Burning pain to her medial ankle, reproducible with light touch. No recent travel, history of DVT, or recent procedures. No falls or trauma. Does have tenderness of medial ankle with dorsiflexion of her left foot. We will go ahead and obtain x-rays, check basic labs and mag for cramping discomfort. States that she has chronic dehydration from her Crohn's and total bowel resection. She has outpatient IV fluids normal saline 2 L every Tuesday. States that the outpatient infusion clinic is closed today due to the holiday, would like to go ahead and receive her infusion while in emergency department. States her entire foot feels numb at this time. Will check arterial supply of left lower extremity. Magnesium noted 0.8. Will review with Dr. Thomas. Diagnostic Imaging Diagonstic Imaging: Xray Comments [facility], [place] NAME: LINA RING MED REC#: [id number] PT STATUS: REG ER : 1955 PHYSICIAN: DADA CEJA RUG CUTTER ADMIT DATE: 11/01/22/ER Signed Date of Exam:11/01/22 ANKLE, LEFT, 3 VIEWS EXAMINATION: Left ankle radiographs, 3 views. COMPARISON: None. HISTORY: 67-year-old female, left ankle pain medially. FINDINGS: There is no identified acute fracture. The alignment of the ankle mortise is unremarkable. There is no tibiotalar joint effusion. There is very mild degenerative type calcaneal enthesopathy. The imaged joint spaces are well-preserved. There is no identified radiopaque foreign body. IMPRESSION: 1. No acute bony abnormality of the left ankle. 2. Mild degenerative type calcaneal enthesopathy. Dictated by: Dictated on workstation # [id number] Dict: 11/01/22 1203 Trans: 11/01/22 1207 [id number] Interpreted by: BIANKA BLANDON MD Electronically signed by: BIANKA BLANDON MD 11/01/22 1207 Departure Impression Primary Impression: Intermittent paresthesia of left leg Additional Impressions: Dehydration syndrome Hypomagnesemia Disposition: HOME, SELF-CARE Condition: Improved Departure-Patient Inst. Decision time for Depature: 14:40 Referrals: RADHA THOMAS MD (PCP/Family) Primary Care Physician Patient Instructions: Dehydration, Adult ED, Low Magnesium Level (DC) Add. Discharge Instructions: Plan: 1. You were positive for a superficial venous thrombus, you can apply heat pack, and take ibuprofen [id number]. Your kidney function was a little worse today than your baseline, you will need your outpatient fluids as scheduled on and recommend having repeat labs. You were given magnesium 2 g in the ER today for low magnesium level. Recommend taking magnesium 400 mg daily. 2. Make sure you are drinking plenty of fluids to stay hydrated, return to the ER if you have any new, concerning, worsening symptoms. All discharge instructions reviewed with patient and/or family. Voiced understanding. DADA CEJA APRN Nov 01, 2022 11:42
[2022-11-01 11:53] LABS: BASOPHILS # (AUTO) 0.1 10^3/uL (0.0-0.1); BASOPHILS % (AUTO) 1 % (0-10); EOSINOPHILS # (AUTO) 0.2 10^3/uL (0.0-0.3); EOSINOPHILS % (AUTO) 2 % (0-10); HEMATOCRIT 40 % (35-52); HEMOGLOBIN 13.3 g/dL (11.5-16.0); LYMPHOCYTES # (AUTO) 1.2 10^3/uL (1.0-4.0); LYMPHOCYTES % (AUTO) 17 % (12-44); MEAN CORPUSCULAR HEMOGLOBIN 30 pg (25-34); MEAN CORPUSCULAR HGB CONC 33 g/dL (32-36); MEAN CORPUSCULAR VOLUME 92 fL (80-99); MEAN PLATELET VOLUME 9.9 fL (9.0-12.2); MONOCYTES # (AUTO) 0.4 10^3/uL (0.0-1.0); MONOCYTES % (AUTO) 6 % (0-12); NEUTROPHILS # (AUTO) 5.1 10^3/uL (1.8-7.8); NEUTROPHILS % (AUTO) 73 % (42-75); PLATELET COUNT 246 10^3/uL (130-400); WHITE BLOOD COUNT 6.9 10^3/uL (4.3-11.0)
[2022-11-01] MEDS: NS IV 1000 ML 1,000 ML IV SCH (11:53)
[2022-11-01 12:00] LABS: ALBUMIN 3.8 GM/DL (3.2-4.5)
[2022-11-01 12:01] LABS: POTASSIUM 3.4 MMOL/L (3.6-5.0)
[2022-11-01 12:02] LABS: CALCIUM 9.3 MG/DL (8.5-10.1)
[2022-11-01 12:03] LABS: TOTAL PROTEIN 6.7 GM/DL (6.4-8.2)
[2022-11-01 12:05] LABS: BILIRUBIN,TOTAL 0.5 MG/DL (0.1-1.0)
--- NOTE | 2022-11-01 12:06 | Diagnostic Imaging Report ---
EXAMINATION: Left ankle radiographs, 3 views. COMPARISON: None. HISTORY: 67-year-old female, left ankle pain medially. FINDINGS: There is no identified acute fracture. The alignment of the ankle mortise is unremarkable. There is no tibiotalar joint effusion. There is very mild degenerative type calcaneal enthesopathy. The imaged joint spaces are well-preserved. There is no identified radiopaque foreign body. IMPRESSION: 1. No acute bony abnormality of the left ankle. 2. Mild degenerative type calcaneal enthesopathy. Dictated by: Dictated on workstation # [id number]
[2022-11-01 12:07] LABS: CREATININE SERUM 1.81 MG/DL (0.60-1.30)
[2022-11-01 12:35] LABS: MAGNESIUM 0.8 MG/DL (1.6-2.4)
[2022-11-01] MEDS ORDERED: MAGNESIUM 1 GM/100 ML IVPB 100 ML IV ONE ×2 (12:45→15:15)
[2022-11-01] MEDS ORDERED: KETOROLAC 30 MG/ML VIAL IVP ONE (14:15)
--- NOTE | 2022-11-01 14:57 | Diagnostic Imaging Report ---
EXAMINATION: US Lower Extremity Venous Duplex Left. TECHNIQUE: Multiple Real-time grayscale images were obtained over the left lower extremity in various projections. Additional spectral analysis and color Doppler duplex images were also obtained. HISTORY: Left leg pain. COMPARISON: None available. FINDINGS: Left: The common femoral, superficial femoral, popliteal, peroneal, posterior tibial, and greater saphenous veins demonstrate normal flow, augmentation, and compressibility. Within the medial distal left lower extremity in the region of pain, there is a noncompressible superficial vein with internal echogenicity. IMPRESSION: 1. No DVT of the left lower extremity. 2. Possible superficial vein thrombosis within the medial distal left lower extremity in the region of concern. Dictated by: Dictated on workstation # [id number]
[2022-11-01 16:11] VITALS: BP 194/101
== END 2022-11-01 16:11 | disposition home or self-care (01) ==
LOC: EDUNIT# 11:07 → ER 11:09
DX: E83.42 Hypomagnesemia (principal); E86.0 Dehydration; R20.2 Paresthesia of skin
CPT/HCPCS: 36415; 73610; 80053; 83735; 85025

== ENCOUNTER 2022-11-15 10:08 | Outpatient (RCR) | payer MEDICARE, OTHER ==
[2022-10-19 11:33] VITALS: BP 148/67
[2022-10-25 13:55] VITALS: BP 150/79
[2022-11-04 11:27] LABS: CALCIUM 8.8 MG/DL (8.5-10.1); CREATININE SERUM 1.21 MG/DL (0.60-1.30); MAGNESIUM 1.2 MG/DL (1.6-2.4); POTASSIUM 2.8 MMOL/L (3.6-5.0)
[2022-11-04 11:52] VITALS: BP 155/81
[2022-11-05 10:55] VITALS: BP_SYST 155; BP_SYST 180; BP_DIAS 81; BP_DIAS 96
[2022-11-05] MEDS: POTASSIUM CL 10 MEQ/50 ML IVPB (PRE-MIX) IV SCH ×4 (11:21→14:03)
[2022-11-08] MEDS: NS IV 1000 ML 1,000 ML IV SCH (11:08)
[2022-11-08 11:16] VITALS: BP 161/86
[~2022-11-15 10:08] MED LIST changes: +MAGNESIUM 1 GM/100 ML IVPB 200 ML IV ONE; +MAGNESIUM 1 GM/D5W 100 ML IVPB IV SCH; +MAGNESIUM 2 GM/50 ML IVPB 50 ML IV ONE; +NS IV 1000 ML 1,000 ML IV SCH; +NS IV 1000 ML 2,000 ML ONE; +PROMETHAZINE INJ 25 MG/ML (PHENERGAN) AMP IM PRN
[2022-11-15] MEDS ORDERED: NS IV 1000 ML 2,000 ML ONE (10:14)
[2022-11-15 10:30] VITALS: BP 145/81
[2022-11-15] MEDS: NS IV 1000 ML 1,000 ML IV SCH (10:39)
[2022-11-15] MEDS ORDERED: NS IV 1000 ML 1,000 ML IV SCH (11:15)
== END 2022-11-16 | disposition home or self-care (01) ==
LOC: SDC 10:08
PROVIDERS: ATTEND Family Medicine
DX: E86.0 Dehydration (principal); K91.1 Postgastric surgery syndromes; E87.6 Hypokalemia; E83.42 Hypomagnesemia; K50.90 Crohn's disease, unspecified, without complications
CPT/HCPCS: 36415; 80048; 83735; 96360; 96361; 96365; 96366; 96367

== ENCOUNTER → 2022-11-30 | Outpatient (CLI) | payer MEDICARE, OTHER ==
[~2022-11-30] MED LIST changes: -MAGNESIUM 1 GM/100 ML IVPB 200 ML IV ONE; -MAGNESIUM 1 GM/D5W 100 ML IVPB IV SCH; -MAGNESIUM 2 GM/50 ML IVPB 50 ML IV ONE; -NS IV 1000 ML 1,000 ML IV SCH; -NS IV 1000 ML 2,000 ML ONE; -PROMETHAZINE INJ 25 MG/ML (PHENERGAN) AMP IM PRN
--- NOTE | 2022-11-30 14:04 | Diagnostic Imaging Report ---
INDICATION: Routine screening. COMPARISON: 07/22/2020. TECHNIQUE: 2D and 3D bilateral screening mammography was performed with CAD. FINDINGS: Scattered fibroglandular densities are identified bilaterally. The fibronodular parenchymal pattern is stable. The previously noted nodular densities in the left breast have decreased in size. No new mass is identified. There are scattered benign calcifications. The axillae are unremarkable. IMPRESSION: No mammographic features suspicious for malignancy are identified. ACR BI-RADS Category 2: Benign findings. Result letter will be mailed to the patient. Note: At least 10% of breast cancer is not imaged by mammography. Dictated by: Dictated on workstation # [id number]
--- NOTE | 2022-11-30 17:04 | Diagnostic Imaging Report ---
INDICATION: Postmenopausal female COMPARISON: 06/15/2011 FINDINGS: AP Spine L2-L4: [BMD (g/cm2): 1.284] [T-Score: 0.7] [Z-Score: 2.0] [BMD Previous: 1.256] [BMD % Change: 2.2*] LT Hip Neck: [BMD (g/cm2): 0.839] [T-Score: -1.4] [Z-Score: 0.0] LT Hip Total: [BMD (g/cm2):0.829] [T-Score:-1.4] [Z-Score: -0.3] [BMD Previous: 1.034] [BMD % Change: -19.8*] RT Hip Neck: [BMD (g/cm2):0.811] [T-Score:-1.6] [Z-Score:-0.2] RT Hip Total: [BMD (g/cm2):0.824] [T-score:-1.5] [Z-Score:-0.3] [BMD Previous:1.021] [BMD % Change:-19.3*] *Indicates significant change from prior examination based on 95% confidence level. World Health Organization criteria for BMD interpretation classify patients as Normal (T-score at or above -1.0), Osteopenic (T-score between -1.0 and -2.5) or Osteoporotic (T-score at or below -2.5). LIMITATIONS AND MODIFICATION: Degenerative change in the lumbar spine likely falsely elevates bone density. FRACTURE RISK (FRAX SCORE): The ten year probability of (%): Major Osteoporotic Fracture: [16.5] Hip Fracture: [3.3] IMPRESSION: 1. Osteopenia (Low bone mass). 2. Bone mineral density of the hips has decreased by a statistically significant amount, as detailed above. 3. See below National Osteoporosis Foundation guidelines on when to potentially initiate pharmacologic therapy. Based on the National Osteoporosis Foundation Guidelines, pharmacologic treatment should be initiated in any of the following, unless clinical conditions suggest otherwise: * Any patient with prior fragility fracture of the hip or vertebrae. A spine fracture indicates 5X risk for subsequent spine fracture and 2X risk for subsequent hip fracture. * Osteoporosis (T-score <-2.5). * Postmenopausal women and men age 50 and older with low bone mass/osteopenia (T-score between -1.0 and -2.5) by DXA and 10-year major osteoporotic fracture greater than 20% or a 10-year probability of hip fracture greater than 3%. These fracture risks are supplied above in the FRAX score, if applicable. * Clinician judgement and/or patient preferences may indicate treatment for people with 10-year fracture probabilities above or below these levels. Dictated by: Dictated on workstation # [id number]
== END ==
LOC: RAD 12:25
PROVIDERS: ATTEND Family Medicine
DX: Z12.31 Encounter for screening mammogram for malignant neoplasm of breast (principal); M85.80 Other specified disorders of bone density and structure, unspecified site; Z78.0 Asymptomatic menopausal state
CPT/HCPCS: 77063; 77067; 77080

== ENCOUNTER → 2022-12-14 | Outpatient (RCR) | payer MEDICARE, OTHER ==
[2022-11-22 13:25] VITALS: BP 144/71
[2022-11-30 10:00] VITALS: BP 121/78
[2022-11-30] MEDS: PROMETHAZINE INJ 25 MG/ML (PHENERGAN) AMP IM PRN (10:27)
[2022-11-30] MEDS: NS IV 1000 ML 1,000 ML IV SCH ×2 (10:28→11:25)
[2022-12-06] MEDS: NS IV 1000 ML 1,000 ML IV SCH ×2 (11:31→12:33)
[2022-12-06] MEDS: PROMETHAZINE INJ 25 MG/ML (PHENERGAN) AMP IM PRN (11:45)
[2022-12-06 13:40] VITALS: BP 139/75
[~2022-12-14] VITALS: Ht 172.7 cm; Wt 79.5 kg
[~2022-12-14] MED LIST changes: +NS IV 1000 ML 1,000 ML IV SCH; +NS IV 1000 ML 2,000 ML ONE
[2022-12-14] MEDS: NS IV 1000 ML 1,000 ML IV SCH ×2 (11:59→13:01)
[2022-12-14] MEDS: PROMETHAZINE INJ 25 MG/ML (PHENERGAN) AMP IM PRN (12:03)
[2022-12-14 14:12] VITALS: BP 127/58
[2022-12-14 14:21] LABS: BASOPHILS # (AUTO) 0.1 10^3/uL (0.0-0.1); BASOPHILS % (AUTO) 1 % (0-10); EOSINOPHILS # (AUTO) 0.1 10^3/uL (0.0-0.3); EOSINOPHILS % (AUTO) 1 % (0-10); HEMATOCRIT 35 % (35-52); HEMOGLOBIN 11.9 g/dL (11.5-16.0); LYMPHOCYTES # (AUTO) 1.5 10^3/uL (1.0-4.0); LYMPHOCYTES % (AUTO) 21 % (12-44); MEAN CORPUSCULAR HEMOGLOBIN 30 pg (25-34); MEAN CORPUSCULAR HGB CONC 34 g/dL (32-36); MEAN CORPUSCULAR VOLUME 90 fL (80-99); MEAN PLATELET VOLUME 10.3 fL (9.0-12.2); MONOCYTES # (AUTO) 0.6 10^3/uL (0.0-1.0); MONOCYTES % (AUTO) 8 % (0-12); NEUTROPHILS % (AUTO) 69 % (42-75); PLATELET COUNT 273 10^3/uL (130-400); WHITE BLOOD COUNT 7.3 10^3/uL (4.3-11.0)
[2022-12-14 14:41] LABS: ALBUMIN 3.3 GM/DL (3.2-4.5); BILIRUBIN,TOTAL 0.5 MG/DL (0.1-1.0); CALCIUM 8.7 MG/DL (8.5-10.1); CREATININE SERUM 1.74 MG/DL (0.60-1.30); MAGNESIUM 1.2 MG/DL (1.6-2.4); POTASSIUM 2.9 MMOL/L (3.6-5.0); TOTAL PROTEIN 6.1 GM/DL (6.4-8.2)
== END | disposition home or self-care (01) ==
LOC: SDC 11-22 10:57
PROVIDERS: ATTEND Family Medicine
DX: K91.1 Postgastric surgery syndromes (principal); E86.0 Dehydration; E87.6 Hypokalemia; E83.42 Hypomagnesemia
CPT/HCPCS: 36415; 80053; 83735; 85025; 96360; 96361; 96372

== ENCOUNTER 2023-01-10 11:06 | Outpatient (RCR) | payer MEDICARE, OTHER ==
[2022-12-15] MEDS: POTASSIUM CL 10 MEQ/50 ML IVPB (PRE-MIX) IV SCH ×3 (12:21→14:08)
[2022-12-15 14:34] VITALS: BP 119/71
[2022-12-16] MEDS: MAGNESIUM 1 GM/D5W 100 ML IVPB IV SCH ×3 (11:02→12:58)
[2022-12-16 12:27] VITALS: BP 136/69
[2022-12-20 11:00] VITALS: BP 163/86
[2022-12-20] MEDS: NS IV 1000 ML 1,000 ML IV SCH ×2 (11:27→12:26)
[2022-12-27 11:00] VITALS: BP 163/86
[2022-12-27] MEDS: NS IV 1000 ML 1,000 ML IV SCH ×2 (11:30→12:30)
[2023-01-03 10:48] VITALS: BP 167/93
[2023-01-03] MEDS: NS IV 1000 ML 1,000 ML IV SCH ×2 (11:08→12:03)
[2023-01-03] MEDS: PROMETHAZINE INJ 25 MG/ML (PHENERGAN) AMP IM PRN (13:16)
[~2023-01-10 11:06] MED LIST changes: +POTASSIUM CL 10 MEQ/50 ML IVPB (PRE-MIX) IV SCH; +POTASSIUM CL 10MEQ/50ML IVPB 200 ML IV ONE; +PROMETHAZINE INJ 25 MG/ML (PHENERGAN) AMP ONE
[2023-01-10 11:10] VITALS: BP 145/78
[2023-01-10] MEDS ORDERED: NS IV 1000 ML 2,000 ML ONE (11:11)
[2023-01-10] MEDS: PROMETHAZINE INJ 25 MG/ML (PHENERGAN) AMP IM PRN (11:20)
[2023-01-10] MEDS: NS IV 1000 ML 1,000 ML IV SCH ×2 (11:27→12:34)
== END 2023-01-14 | disposition home or self-care (01) ==
LOC: SDC 11:06
PROVIDERS: ATTEND Family Medicine
DX: E87.6 Hypokalemia (principal); E83.42 Hypomagnesemia; K50.118 Crohn's disease of large intestine with other complication; K91.1 Postgastric surgery syndromes; R94.4 Abnormal results of kidney function studies
CPT/HCPCS: 96360; 96361; 96365; 96366; 96372

== ENCOUNTER 2023-02-07 10:50 | Outpatient (RCR) | payer MEDICARE, OTHER ==
[2023-01-17 10:50] VITALS: BP 152/89
[2023-01-17] MEDS: NS IV 1000 ML 1,000 ML IV SCH ×2 (11:24→12:21)
[2023-01-24 10:50] VITALS: BP 165/77
[2023-01-24] MEDS: SODIUM CHLORIDE IV PRN (11:28)
[2023-01-31] MEDS: SODIUM CHLORIDE IV PRN ×2 (11:27→12:25)
[2023-01-31] MEDS: PROMETHAZINE INJ 25 MG/ML (PHENERGAN) AMP IM PRN (11:29)
[2023-01-31 11:51] LABS: BASOPHILS % (AUTO) 1 % (0-10); EOSINOPHILS # (AUTO) 0.1 10^3/uL (0.0-0.3); EOSINOPHILS % (AUTO) 2 % (0-10); HEMATOCRIT 38 % (35-52); HEMOGLOBIN 12.4 g/dL (11.5-16.0); LYMPHOCYTES # (AUTO) 1.2 10^3/uL (1.0-4.0); LYMPHOCYTES % (AUTO) 20 % (12-44); MEAN CORPUSCULAR HEMOGLOBIN 30 pg (25-34); MEAN CORPUSCULAR HGB CONC 33 g/dL (32-36); MEAN CORPUSCULAR VOLUME 92 fL (80-99); MEAN PLATELET VOLUME 10.1 fL (9.0-12.2); MONOCYTES # (AUTO) 0.4 10^3/uL (0.0-1.0); MONOCYTES % (AUTO) 7 % (0-12); NEUTROPHILS # (AUTO) 4.1 10^3/uL (1.8-7.8); NEUTROPHILS % (AUTO) 69 % (42-75); PLATELET COUNT 242 10^3/uL (130-400); WHITE BLOOD COUNT 5.9 10^3/uL (4.3-11.0)
[2023-01-31 11:55] VITALS: BP 143/86
[2023-01-31 12:00] LABS: ALBUMIN 3.6 GM/DL (3.2-4.5); POTASSIUM 3.8 MMOL/L (3.6-5.0)
[2023-01-31 12:01] LABS: CALCIUM 9.3 MG/DL (8.5-10.1)
[2023-01-31 12:02] LABS: TOTAL PROTEIN 6.4 GM/DL (6.4-8.2)
[2023-01-31 12:04] LABS: BILIRUBIN,TOTAL 0.5 MG/DL (0.1-1.0)
[2023-01-31 12:06] LABS: CREATININE SERUM 1.59 MG/DL (0.60-1.30)
[2023-01-31 12:12] LABS: MAGNESIUM 1.1 MG/DL (1.6-2.4)
[~2023-02-07] VITALS: Ht 172.7 cm; Wt 79.5 kg
[~2023-02-07 10:50] MED LIST changes: +MAGNESIUM 1 GM/100 ML IVPB 100 ML IV SCH; +MAGNESIUM 1 GM/100 ML IVPB 200 ML IV ONE; -NS IV 1000 ML 1,000 ML IV SCH; -POTASSIUM CL 10 MEQ/50 ML IVPB (PRE-MIX) IV SCH; -POTASSIUM CL 10MEQ/50ML IVPB 200 ML IV ONE; -PROMETHAZINE INJ 25 MG/ML (PHENERGAN) AMP ONE
[2023-02-07 11:26] LABS: ALBUMIN 3.8 GM/DL (3.2-4.5)
[2023-02-07 11:27] LABS: POTASSIUM 3.6 MMOL/L (3.6-5.0)
[2023-02-07] MEDS: SODIUM CHLORIDE IV PRN (11:27)
[2023-02-07] MEDS: PROMETHAZINE INJ 25 MG/ML (PHENERGAN) AMP IM PRN (11:27)
[2023-02-07 11:28] LABS: CALCIUM 9.8 MG/DL (8.5-10.1)
[2023-02-07 11:29] LABS: TOTAL PROTEIN 6.8 GM/DL (6.4-8.2)
[2023-02-07 11:31] LABS: BILIRUBIN,TOTAL 0.5 MG/DL (0.1-1.0)
[2023-02-07 11:33] LABS: CREATININE SERUM 1.53 MG/DL (0.60-1.30)
[2023-02-07 11:36] LABS: MAGNESIUM 1.3 MG/DL (1.6-2.4)
[2023-02-07 11:45] LABS: HEMATOCRIT 37 % (35-52); HEMOGLOBIN 12.1 g/dL (11.5-16.0); MEAN CORPUSCULAR HEMOGLOBIN 30 pg (25-34); MEAN CORPUSCULAR HGB CONC 33 g/dL (32-36); MEAN CORPUSCULAR VOLUME 91 fL (80-99); PLATELET COUNT 253 10^3/uL (130-400); WHITE BLOOD COUNT 6.1 10^3/uL (4.3-11.0)
[2023-02-07] MEDS ORDERED: MAGNESIUM 1 GM/100 ML IVPB 100 ML IV SCH (12:25)
[2023-02-07] MEDS ORDERED: MAGNESIUM 1 GM/100 ML IVPB 200 ML IV ONE (12:28)
[2023-02-07 14:40] VITALS: BP 168/90
== END 2023-02-13 | disposition home or self-care (01) ==
LOC: SDC 10:50
PROVIDERS: ATTEND Family Medicine
DX: E87.6 Hypokalemia (principal); E83.42 Hypomagnesemia; K91.1 Postgastric surgery syndromes
CPT/HCPCS: 36415; 80053; 83735; 85025; 85027; 96360; 96361; 96365; 96366; 96372

== ENCOUNTER 2023-03-15 10:55 | Outpatient (RCR) | payer MEDICARE, OTHER ==
[2023-02-14 11:25] VITALS: BP 160/80
[2023-02-14 11:42] LABS: BILIRUBIN,TOTAL 0.5 MG/DL (0.1-1.0); CALCIUM 9.6 MG/DL (8.5-10.1); CREATININE SERUM 1.5 MG/DL (0.60-1.30); MAGNESIUM 1.5 MG/DL (1.6-2.4); POTASSIUM 3.5 MMOL/L (3.6-5.0)
[2023-02-21 11:10] VITALS: BP 148/80
[2023-02-21] MEDS: NS IV 1000 ML 1,000 ML IV SCH ×2 (11:31→12:30)
[2023-02-21] MEDS: MAGNESIUM 1 GM/D5W 100 ML IVPB IV SCH ×2 (11:32→12:29)
[2023-02-28 11:00] VITALS: BP 142/79
[2023-03-07 11:00] VITALS: BP 185/92
[2023-03-07] MEDS: NS IV 1000 ML 2,000 ML IV PRN (11:22)
[~2023-03-15] VITALS: Ht 170 cm; Wt 79.5 kg
[~2023-03-15 10:55] MED LIST changes: -MAGNESIUM 1 GM/100 ML IVPB 100 ML IV SCH; -MAGNESIUM 1 GM/100 ML IVPB 200 ML IV ONE; +NS IV 1000 ML 1,000 ML IV SCH; +PROMETHAZINE INJ 25 MG/ML (PHENERGAN) AMP IM PRN; +PROMETHAZINE INJ 25 MG/ML (PHENERGAN) AMP ONE
[2023-03-15 11:09] VITALS: BP 159/81
[2023-03-15] MEDS: NS IV 1000 ML 2,000 ML IV PRN (11:11)
== END 2023-03-16 | disposition home or self-care (01) ==
LOC: SDC 10:55
PROVIDERS: ATTEND Family Medicine
DX: E87.6 Hypokalemia (principal); E83.42 Hypomagnesemia
CPT/HCPCS: 36415; 80053; 83735; 96360; 96361; 96365; 96366; 96372

== ENCOUNTER 2023-04-11 08:22 | Outpatient (RCR) | payer MEDICARE, OTHER ==
[2023-03-21 13:35] VITALS: BP 144/81
[2023-03-28 11:22] LABS: ALBUMIN 3.6 GM/DL (3.2-4.5); POTASSIUM 3.9 MMOL/L (3.6-5.0)
[2023-03-28 11:23] LABS: CALCIUM 9.7 MG/DL (8.5-10.1)
[2023-03-28 11:24] LABS: TOTAL PROTEIN 6.4 GM/DL (6.4-8.2)
[2023-03-28 11:26] LABS: BILIRUBIN,TOTAL 0.3 MG/DL (0.1-1.0)
[2023-03-28 11:28] LABS: CREATININE SERUM 1.35 MG/DL (0.60-1.30)
[2023-03-28 11:31] LABS: MAGNESIUM 1.2 MG/DL (1.6-2.4)
[2023-03-28 12:28] VITALS: BP 148/76
[2023-03-28] MEDS: MAGNESIUM 1 GM/100 ML IVPB 100 ML IV SCH ×2 (13:33→14:34)
[2023-04-04] MEDS: NS IV 1000 ML 1,000 ML IV SCH ×2 (11:42→12:47)
[2023-04-04 13:50] VITALS: BP 136/72
[~2023-04-11] VITALS: Ht 170 cm; Wt 79.5 kg
[~2023-04-11 08:22] MED LIST changes: +DILT300C38 PO; -DILT300C49 PO; +MAGNESIUM 1 GM/100 ML IVPB 200 ML IV ONE; -PROMETHAZINE INJ 25 MG/ML (PHENERGAN) AMP ONE
[2023-04-11] MEDS ORDERED: PROMETHAZINE INJ 25 MG/ML (PHENERGAN) AMP IM PRN (08:45)
[2023-04-11] MEDS ORDERED: NS IV 1000 ML 1,000 ML IV SCH (08:45)
[2023-04-11 08:55] VITALS: BP 148/77
== END 2023-04-15 | disposition still patient (30) ==
LOC: SDC 08:22
PROVIDERS: ATTEND Family Medicine
DX: K90.9 Intestinal malabsorption, unspecified (principal); E86.0 Dehydration
CPT/HCPCS: 36415; 80053; 83735; 96360; 96361; 96365; 96366

== ENCOUNTER → 2023-05-16 | Outpatient (RCR) | payer MEDICARE, OTHER ==
[2023-04-18 09:20] VITALS: BP 161/90
[2023-04-25 11:35] VITALS: BP 139/69
[2023-05-02 12:23] VITALS: BP 154/83
[2023-05-09 11:00] VITALS: BP 148/78
[2023-05-09] MEDS: NS IV 1000 ML 1,000 ML IV SCH ×2 (11:13→12:15)
[~2023-05-16] MED LIST changes: -MAGNESIUM 1 GM/100 ML IVPB 200 ML IV ONE
[2023-05-16 09:40] VITALS: BP 104/57
== END | disposition home or self-care (01) ==
LOC: SDC 04-18 08:59
PROVIDERS: ATTEND Family Medicine
DX: E86.0 Dehydration (principal); K90.9 Intestinal malabsorption, unspecified; E83.42 Hypomagnesemia
CPT/HCPCS: 36415; 83735; 96360; 96361; 96365; 96367

== ENCOUNTER 2023-06-13 10:38 | Outpatient (RCR) | payer MEDICARE, OTHER ==
[2023-05-23 11:00] VITALS: BP 182/99
[2023-05-30 13:24] VITALS: BP 135/61
[2023-06-07] MEDS: PROMETHAZINE INJ 25 MG/ML VIAL IM PRN (11:12)
[2023-06-07 11:19] VITALS: BP 122/77
[~2023-06-13] VITALS: Wt 79.5 kg
[~2023-06-13 10:38] MED LIST changes: +MAGNESIUM 1 GM/100 ML IVPB 200 ML IV ONE; +MAGNESIUM 1 GM/D5W 100 ML IVPB IV SCH; +NS IV 1000 ML 1,000 ML ONE; -NS IV 1000 ML 2,000 ML ONE; -PROMETHAZINE INJ 25 MG/ML (PHENERGAN) AMP IM PRN; +PROMETHAZINE INJ 25 MG/ML VIAL ONE
[2023-06-13] MEDS ORDERED: NS IV 1000 ML 2,000 ML ONE (10:42)
[2023-06-13] MEDS: PROMETHAZINE INJ 25 MG/ML VIAL IM PRN (10:54)
[2023-06-13 11:24] VITALS: BP 162/78
== END 2023-06-16 | disposition home or self-care (01) ==
LOC: SDC 10:38
PROVIDERS: ATTEND Family Medicine
DX: K90.9 Intestinal malabsorption, unspecified (principal); E86.0 Dehydration
CPT/HCPCS: 36415; 83735; 96360; 96361; 96365; 96366; 96367; 96372; 96523

== ENCOUNTER 2023-06-21 14:54 | Emergency (ER) | payer MEDICARE, OTHER ==
[~2023-06-21] VITALS: Ht 172.7 cm; Wt 80.6 kg
[~2023-06-21 14:54] MED LIST changes: -MAGNESIUM 1 GM/100 ML IVPB 200 ML IV ONE; -MAGNESIUM 1 GM/D5W 100 ML IVPB IV SCH; -NS IV 1000 ML 1,000 ML IV SCH; -NS IV 1000 ML 1,000 ML ONE; -PROMETHAZINE INJ 25 MG/ML VIAL ONE
--- NOTE | 2023-06-21 17:10 | ED Upper Extremity ---
General Chief Complaint: Upper Extremity Stated Complaint: KIDNEY AND RT ARM PAIN, FALL A WEEK AGO Nursing Triage Note: Patient c/o Rt. elbow pain that started on Tuesday last week. Patient denies any known injury. Patient states she started having swelling Tuesday afternoon. Patient states she does have a Hx. of blood clots in her legs. Patient denies any bug bites or redness to area. Patient states heat and cold makes area feel better. Patient states the pain goes down to her thumb and into shoulder and states that pain is interm. Patient denies any numbness or tingling in her Rt. arm. Patient c/o mid back pain that started on Tuesday. Patient states, "my kidney hurts." Patient states she has had decreased urinary output until today and states she received 2 liters of fluids this am. Source: patient Exam Limitations: no limitations (ABDOUL GOYAL) History of Present Illness Date Seen by Provider: Jun 21, 2023 Time Seen by Provider: 16:55 Initial Comments 68 yo F with PMH of Crohn's disease, subtotal colectomy with ileostomy, short gut syndrome, and superficial thrombophlebitis of the lower extremity presents to the ED with new onset medial right elbow pain that started on 06/17 and has worsened since. Pt denies any h/o trauma to the area or recent wounds. Pt states that pain is constant and sharp and has now started to radiate distally. Pt states that cold and warmth improves symptoms. Pt states that pain is similar to when she had superficial thrombophlebitis of her lower extremity. Pt has been taking ASA for the last 4 days but has had minimal relief. Pt denies fever, chills, nausea, vomiting, change in appetite, repetitive movements, SOA, and CP. Onset: last week Severity: mild Pain/Injury Location: right elbow Modifying Factors: Improves With Cold Therapy, Improves With Other (warmth improves) (ABDOUL GOYAL) Allergies and Home Medications Allergies Coded Allergies: No Known Drug Allergies (Unverified , 05/11/17) Patient Home Medication List Home Medication List Reviewed: Yes (ABDOUL GOYAL) Home Medication List Reviewed: Yes (CHIRS DELAROSA MD) Aripiprazole (Aripiprazole) 5 Mg Tablet, 5 MG PO DAILY, (Reported) Entered as Reported by: IAN VEGA on 05/11/17 1129 Cephalexin (Cephalexin) 500 Mg Tablet, 500 MG PO TID Prescribed by: CHRIS DELAROSA on 06/21/23 1723 Clonidine (Catapres-TTS 1 Patch) 1 Each Patch.tdwk, 1 EACH TD Q7D, (Reported) Entered as Reported by: REAGAN HERNANDEZ on 11/17/16 1140 Diltiazem HCl (Diltiazem HCl) 30 Mg Tablet, 30 MG PO TID, (Reported) Entered as Reported by: IAN VEGA on 05/11/17 1129 Escitalopram Oxalate (Escitalopram Oxalate) 20 Mg Tablet, 40 MG PO HS, (Reported) Entered as Reported by: MANUEL DELANEY on 08/13/15 1054 Hydralazine HCl (Hydralazine HCl) 50 Mg Tablet, 50 MG PO BID, (Reported) Entered as Reported by: IAN VEGA on 05/11/17 1129 Hydrocodone Bit/Acetaminophen (Lortab 7.5 Mg Tablet) 1 Each Tablet, 1-2 EACH PO Q4H Prescribed by: SUNNY STACY on 05/12/17 1324 Lorazepam (Lorazepam) 0.5 Mg Tablet, 0.5 MG PO BID, (Reported) Entered as Reported by: IAN VEGA on 05/11/17 1129 Omeprazole (Omeprazole) 20 Mg Capsule.dr, 20 MG PO HS, (Reported) Entered as Reported by: MANUEL DELANEY on 08/13/15 1054 Tramadol HCl (Tramadol HCl) 50 Mg Tablet, 50 MG PO Q6H PRN for PAIN, (Reported) Entered as Reported by: MANUEL DELANEY on 08/13/15 1054 Review of Systems Constitutional: no symptoms reported; No chills, No fever EENTM: no symptoms reported Respiratory: no symptoms reported Cardiovascular: no symptoms reported Gastrointestinal: no symptoms reported Genitourinary: no symptoms reported Musculoskeletal: joint pain (right elbow), joint swelling (right elbow) Skin: other (erythema and warmth of medial aspect of right elbow) Psychiatric/Neurological: No Symptoms Reported (ABDOUL GOYAL) All Other Systems Reviewed Negative Unless Noted: Yes (ABDOUL GOYAL) Past Ojkxtzb-Jazvpj-Cophmu Hx Patient Social History Tobacco Use?: No Use of E-Cig and/or Vaping dev: No Substance use?: No Alcohol Use?: No (ABDOUL GOYAL) Immunizations Up To Date Tetanus Booster (TDap): More than 5yrs PED Vaccines UTD: No Influenza Vaccine Up-to-Date: Yes; Up-to-Date (ABDOUL GOYAL) Seasonal Allergies Seasonal Allergies: No (ABDOUL GOYAL) Past Medical History Surgeries: Yes (Port) Abdominal (subtotal colectomy with ileostomy), Appendectomy, Gallbladder, Hysterectomy Respiratory: No Cardiac: Yes Hypertension Neurological: Yes Headaches /Migraines Reproductive Disorders: 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, Tubal Ligation Sexually Transmitted Disease: No Genitourinary: Yes (CKD Stage 3) Gastrointestinal: Yes (gastritis ) Crohns Disease Fibromyalgia Cancer: No Anxiety, Bipolar Integumentary: Yes (superficial thrombopheblitis of LE) (ABDOUL GOYAL) Family Medical History BREAST CANCER 19 MOTHER FH: breast cancer Hypertension 19 FATHER Prostate cancer 19 FATHER (PROSTATE PROBLEMS, UNSURE IF CANCER) Heart Disease, Hypertension (ABDOUL GOYAL) Physical Exam Vital Signs Vital Signs - First Documented 06/21/23 15:08 Temp 36.8 Pulse 69 Resp 14 B/P (MAP) 169/81 (110) O2 Delivery Room Air (CHRIS DELAROSA MD) Vital Signs Capillary Refill : (ABDOUL GOYAL) Height, Weight, BMI Height: 5'8.00" Weight: 196lbs. 8.0oz. 89.556590qi; 27.00 BMI Method:Stated General Appearance: WD/WN, no apparent distress HEENT: PERRL/EOMI Shoulder: normal inspection, non-tender, normal ROM Elbow/Forearm: no evidence of injury, normal ROM, Right (erythema and warmth of medial aspect of elbow with erythema tracking distally, tenderness to palpation with small lump appreciated upon palpation; no fluctuance, drainage, or induration of area), pain (right elbow; with palpation), soft tissue tenderness (right elbow), swelling (right elbow) Wrist: Yes normal inspection, Yes non-tender, Yes normal ROM Hand: normal inspection, non-tender, normal ROM Neurologic/Psychiatric: alert, normal mood/affect, oriented x 3 Skin: normal color, warm/dry, other (erythema, warmth, and swelling of right medial aspect of elbow; no wound, fluctuance, or induration appreciated) Lymphatic: no adenopathy (ABDOUL GOYAL) Progress/Results/Core Measures Results/Orders Vital Signs/I&O (CHRIS DELAROSA MD) Blood Pressure Mean: 110 Progress Progress Note : Time: 17:20 Progress Note Patient seen and evaluated by me. Evaluation today includes physical exam. Pertinent for area of erythema to the medial right elbow and upper arm with mild prox lymphangitic streaking. No palpable cords in the arm. No circumferential swelling in the arm. Distal NVI. Normal, stable VS. Heart is regular, lungs are clear with no increased work of breathing. DDX DVT vs superficial thrombophlebitis. Patient's exam is most consistent with superficial thrombophlebitis - no concerning findings for DVT - U/S considered, however history and physical do not support the need. Pain management with OTC meds advised, warm compresses and antibiotics. Patient encouraged to follow up with her PCP in 3-4 days. Return precautions provided in both verbal and written format. All questions are sought and answered. (CHRIS DELAROSA MD) Departure Impression Primary Impression: Thrombophlebitis arm Disposition: 01 HOME, SELF-CARE Condition: Stable Departure-Patient Inst. Decision time for Depature: 17:21 (CHRIS DELAROSA MD) Referrals: RADHA CARDENAS MD (PCP/Family) Primary Care Physician Patient Instructions: Superficial vein phlebitis and thrombosis Add. Discharge Instructions: Take the antibiotics, cephalexin 500 mg 3 times a day for 10 days. Continue to take extra strength Tylenol, 2 tablets every 6 hours as needed for pain. Alternate heat and ice for comfort to the sore area of your right arm. If after 2 days of antibiotics you notice increasing redness, pain or you develop a fever please return to the emergency department for reevaluation. Monitor your symptoms of kidney pain for worsening. If you develop vomiting or burning with urination or fever with the right sided pain please return to the emergency room for reevaluation. Please follow-up with your primary care provider [phone] (she has a clinic in [place]) Scripts Cephalexin (Cephalexin) 500 Mg Tablet 500 MG PO TID, #20 TAB Prov: CHRIS DELAROSA MD 06/21/23 Verification and Attestation of Medical Student E/M Service A medical student performed and documented this service in my presence. I reviewed and verified all information documented by the medical student and made modifications to such information, when appropriate. I personally performed the physical exam and medical decision making. Chris Delarosa, Jun 21, 2023,17:25 (CHRIS DELAROSA MD) Copy Copies To 1: RADHA CARDENAS MD, TAYLOR Jun 21, 2023 17:10 CHRIS DELAROSA MD Jun 21, 2023 17:25
[2023-06-21] MEDS ORDERED: CEPH500T PO (17:23)
[2023-06-21 17:40] VITALS: BP 169/81
== END 2023-06-21 17:40 | disposition home or self-care (01) ==
LOC: EDUNIT# 14:54 → ER 14:56
DX: I80.8 Phlebitis and thrombophlebitis of other sites (principal)

== ENCOUNTER 2023-08-15 10:46 | Outpatient (RCR) | payer MEDICARE, OTHER ==
[2023-07-18 11:10] VITALS: BP 175/82
[2023-07-25 11:00] VITALS: BP 179/96
[2023-08-01 10:55] VITALS: BP 147/78
[2023-08-08 12:35] VITALS: BP 194/96
[~2023-08-15 10:46] MED LIST changes: +CEPH500T PO; -CLON1PAT TD; +CLON1PAT42 TD; +NS IV 1000 ML 1,000 ML IV SCH; +NS IV 1000 ML 2,000 ML ONE; +PROMETHAZINE INJ 25 MG/ML VIAL IM PRN; +PROMETHAZINE INJ 25 MG/ML VIAL ONE
[2023-08-15] MEDS ORDERED: NS IV 1000 ML 2,000 ML ONE (10:56)
[2023-08-15 11:00] VITALS: BP 177/92
[2023-08-15] MEDS ORDERED: NS IV 1000 ML 1,000 ML IV SCH (11:00)
[2023-08-15] MEDS ORDERED: NS IV 1000 ML 2,000 ML IV SCH (11:00)
== END 2023-08-16 | disposition home or self-care (01) ==
LOC: SDC 10:46
PROVIDERS: ATTEND Family Medicine
DX: E86.0 Dehydration (principal); K90.9 Intestinal malabsorption, unspecified
CPT/HCPCS: 96360; 96361; 96372

== ENCOUNTER 2023-09-12 10:58 | Outpatient (RCR) | payer MEDICARE, OTHER ==
[2023-08-22 11:30] VITALS: BP 157/90
[2023-08-29 13:25] VITALS: BP 163/64
[2023-09-05 11:00] VITALS: BP 155/96
[~2023-09-12] VITALS: Wt 79.5 kg
[~2023-09-12 10:58] MED LIST changes: -PROMETHAZINE INJ 25 MG/ML VIAL ONE
[2023-09-12 11:00] VITALS: BP 158/86
[2023-09-12] MEDS ORDERED: NS IV 1000 ML 2,000 ML ONE (11:10)
== END 2023-09-15 | disposition home or self-care (01) ==
LOC: SDC 10:58
PROVIDERS: ATTEND Family Medicine
DX: E86.0 Dehydration (principal); K90.9 Intestinal malabsorption, unspecified
CPT/HCPCS: 96360; 96361